=== PATIENT | female | born 1960 | race Caucasian/White ===

== ENCOUNTER 2020-03-24 12:01 | Outpatient (CLI) | payer BC, SELFPAY ==
[2020-03-24 23:56] LABS: SARS-CoV-2 RNA PCR Negative
== END 2020-03-24 12:02 | disposition home or self-care (01) ==
LOC: CHSLAB 12:10
PROVIDERS: PCP Internal Medicine; Visit Provider Internal Medicine
DX: Z20.828 Contact with and (suspected) exposure to other viral communicable diseases (principal)
CPT/HCPCS: 87635; C9803; U0003

== ENCOUNTER 2021-01-12 14:17 | Outpatient (CLI) | payer BC, SELFPAY ==
[2021-01-12 15:20] LABS: SARS-CoV-2 RNA PCR Negative (Negative)
== END 2021-01-12 14:18 | disposition home or self-care (01) ==
LOC: CHSLAB 14:19
PROVIDERS: PCP Internal Medicine; Visit Provider Internal Medicine
DX: Z20.822 Contact with and (suspected) exposure to COVID-19 (principal)
CPT/HCPCS: 87081; 87880; C9803; U0003; U0005

== ENCOUNTER 2022-06-02 14:01 | Outpatient (CLI) | payer BC, SELFPAY ==
--- NOTE | ~2022-06-02 | CT_ITS ---
EXAMINATION: CTA chest PE protocol DATE: 06/02/2022 15:30 INDICATION: Shortness of breath. TECHNIQUE: Computed tomography angiography (CTA) of the chest was performed with 100 mL Omnipaque-350 intravenous contrast timed to evaluate the pulmonary arteries. Coronal maximum intensity projection 3D-reconstructions were created by the technologist. Automated exposure control and iterative reconst ruction technique were employed. The dose-length product was 716.02 mGy-cm. COMPARISON: Chest 2 views 06/02/2022 FINDINGS: There is minimal atelectasis in the lungs. No pleural effusion. The heart size is normal. N o pericardial effusion. There are surgical changes of the stomach. There are gallstones in the gallbl adder, which is normal in size. There is a 4.2 cm cyst in right kidney. There is no pulmonary embolus . There is mild thoracic spondylosis. IMPRESSION: 1. No pulmonary embolus. Reviewed, dictated and finalized at location A. OGIC DEVELOPER IMPRESSION: 1. No pulmonary embolus.
--- NOTE | ~2022-06-02 | XR_ITS ---
EXAMINATION: XR chest 2V DATE: 06/02/2022 14:32 INDICATION: Shortness of breath, heart palpitations TECHNIQUE: Frontal and lateral views of the chest are obtained COMPARISON: None available FINDINGS: The lungs are free of acute opacities. No pleural effusion or pneumothorax. The cardiomedia stinal silhouette is normal. There is mild thoracic spondylosis. IMPRESSION: 1. No acute cardiopulmonary abnormality. Reviewed, dictated and finalized at location B. HOUSE ORDER PICKER
[2022-06-02 14:24] LABS: Basophils Absolute Auto 0.05 K/mm3 (0.00-0.10); Basophils Percent Auto 1.1 % (0.0-1.0); Eosinophils Absolute Auto 0.21 K/mm3 (0.02-0.50); Eosinophils Percent Auto 4.6 % (1.0-6.0); Hematocrit 42.4 % (35.0-49.0); Hemoglobin 13.6 g/dL (12.0-15.0); Lymphocytes Absolute Auto 1.15 K/mm3 (1.10-4.50); Lymphocytes Percent Auto 25.1 % (18.0-42.0); Mean Corpuscular HGB Conc 32.1 g/dL (32.0-36.0); Mean Corpuscular Hemoglobin 31.8 pg (27.0-31.0); Mean Corpuscular Volume 99.1 fL (78.0-102.0); Mean Platelet Volume 9.1 fl (9.2-11.8); Monocytes Absolute Auto 0.33 K/mm3 (0.10-0.90); Monocytes Percent Auto 7.2 % (2.0-11.0); Neutrophils Absolute Auto 2.9 K/mm3 (1.7-7.2); Platelet Count Result 285 K/mm3 (150-420); Red Blood Count 4.28 M/mm3 (4.20-5.40); Red Cell Distribution Width 12.3 % (11.6-14.4); White Blood Count 4.6 K/mm3 (4.8-10.8)
[2022-06-02 14:49] LABS: Alanine Aminotransferase 20 U/L (14-59); Albumin Level 3.5 g/dL (3.4-5.0); Alkaline Phosphatase 153 U/L (46-116); Anion Gap 5 mmol/L (8-16); Aspartate Amino Transferase 14 U/L (15-37); Bilirubin,Total 0.4 mg/dL (0.00-1.00); Blood Urea Nitrogen 16 mg/dL (7-18); Calcium 8.9 mg/dL (8.5-10.1); Carbon Dioxide 30 mmol/L (21-32); Chloride 104 mmol/L (98-108); Creatine Kinase 55 U/L (26-192); Estimated Glomerular Filt Rate 48; Glucose 112 mg/dL (70-99); NT Pro B Type Natriuretic Pept 48 pg/mL (0-125); Osmolality Calculated 290 mOsm/kg (285-295); Potassium 4.1 mmol/L (3.5-5.1); Sodium 139 mmol/L (136-145); Total Protein 7.3 g/dL (6.4-8.2)
[2022-06-02 14:51] LABS: D Dimer 0.54 mg/L (0.19-0.50)
[2022-06-02 14:53] LABS: Creatine Kinase MB < 0.50 ng/mL (0.00-5.00); Troponin I < 4.0 ng/L (0.00-60.4)
== END 2022-06-02 14:02 | disposition home or self-care (01) ==
PROVIDERS: PCP Internal Medicine; Visit Provider Internal Medicine
DX: R00.2 Palpitations (principal); R06.00 Dyspnea, unspecified; U07.1 COVID-19
CPT/HCPCS: 36415; 71046; 71275; 80053; 82550; 82553; 83880; 84484; 85025; 85380; Q9967

== ENCOUNTER 2022-09-07 11:58 | Outpatient (CLI) | payer BC, SELFPAY ==
--- NOTE | ~2022-09-07 | DEXA_ITS ---
Bone Density Report Name: KEY September Age: 62 Sex: Female Ethnicity: White Date of : 1960 Indication: postmenopausal; screening for osteoporosis; height loss; hysterectomy; Referring Provider: Ananth Mullen Study: Bone densitometry was performed. Exam Date: September 07, 2022 Accession number: [id number] Bone Density: Region BMD T-score Z-score Classification AP Spine(L1-L4) 0.828 -2.0 -0.6 Osteopenia Femoral Neck (Left) 0.733 -1.0 0.3 Normal Total Hip (Left) 0.872 -0.6 0.4 Normal Femoral Neck (Right) 0.693 -1.4 -0.1 Osteopenia Total Hip (Right) 0.854 -0.7 0.2 Normal Femoral Neck Mean 0.713 -1.2 0.1 Osteopenia Total Hip Mean 0.863 -0.6 0.3 Normal World Health Organization criteria for BMD impression classify patients as: Normal (T-score at or above -1.0), Osteopenia (T-score between -1.0 and -2.5), or Osteoporosis (T-score at or below -2.5). 10-year Fracture Risk(1): Major Osteoporotic Fracture 6.4% Hip Fracture 0.4% Reported Risk Factors: [place] (), Neck BMD=0.693, BMI=50.3 (1) FRAX(R) Version 3.08. Fracture probability calculated for an untreated patient. Fracture probability may be lower if the patient has received treatment. Clinical Information Provided by Patient: Has used the following medications: Vitamin D, Calcium, multivitiman Has the following medical conditions: Hysterectomy Patient maximum height was 62 Menopause Age: 52 No regular weight bearing exercise Onset of menses at age 13 Number of children 0 Impression: The patient has low bone mass, based on the Total Spine T-score. Discussion: BONE DENSITY IS LOW AT ONE OR MORE SKELETAL SITES. This patient's lowest T-score is low at one or more skeletal sites. It meets the World Health Organization's (WHO) criteria for ?low bone mass? (T-score between -1.0 and -2.5). The patient's 10-year risk of fracture as calculated by FRAX is less than the threshold where pharmacological therapy is recommended by the National Osteoporosis Foundation (NOF). However, all treatment decisions require clinical judgment and consideration of individual patient factors, including patient preferences, comorbidities, previous drug use, risk factors not captured in the FRAX model (e.g., frailty, falls, vitamin D deficiency, increased bone turnover, interval significant decline in bone density) and possible under or overestimation of fracture risk by FRAX. The patient should follow a healthful lifestyle (good nutrition with adequate calcium and vitamin D, and appropriate weight-bearing exercise). Follow-Up: Consider repeating this study in 2 to 3 years to reassess this patient's status, or sooner if there is some new clinical indication. Reported by: Dr. Brian Garrison on 09/07/2022 12:39:00 PM. _
--- NOTE | ~2022-09-07 | MM_ITS ---
EXAMINATION: MM screening [facility] BI w erasmo HISTORY: Screening TECHNIQUE: Craniocaudal and mediolateral oblique 3-D tomosynthesis images were obtained and synthetic 2-D images were generated. CAD analysis was submitted and interpreted. COMPARISON: Comparison to multiple prior studies sequentially, with oldest reviewed study dated 02/24. BREAST PARENCHYMAL COMPOSITION: The breasts are almost entirely fatty. FINDINGS: The right breast is stable without evidence for malignancy. There is a new small focal mass in the upper outer quadrant of the left breast, middle third. IMPRESSION: 1. New left breast mass, upper outer quadrant. 2. Additional mammographic views and possible breast ultrasound are recommended. BI-RADS Category 0: Incomplete: Needs additional imaging evaluation. Reviewed, dictated and finalized at location A. IMPRESSION: 1. New left breast mass, upper outer quadrant. 2. Additional mammographic views and possible breast ultrasound are recommended . BI-RADS Category 0: Incomplete: Needs additional imaging evaluation.
== END 2022-09-07 11:59 | disposition home or self-care (01) ==
LOC: CHSIMG 11:59
PROVIDERS: PCP Internal Medicine; Visit Provider Internal Medicine
DX: Z12.31 Encounter for screening mammogram for malignant neoplasm of breast (principal); Z78.0 Asymptomatic menopausal state; M85.89 Other specified disorders of bone density and structure, multiple sites; R92.8 Other abnormal and inconclusive findings on diagnostic imaging of breast
CPT/HCPCS: 77063; 77067; 77080

== ENCOUNTER 2022-09-12 09:43 | Outpatient (CLI) | payer BC, SELFPAY ==
--- NOTE | ~2022-09-12 | US_ITS ---
US breast LT limited DATE: 09/12/2022 10:36 INDICATION: New 3 mm mammographic mass TECHNIQUE: Real-time imaging of upper outer and lower-outer quadrants of left breast COMPARISON: 09/07/2022 bilateral screening mammogram FINDINGS: An approximately 3 mm hypoechoic virtually sonolucent lesion is noted at 12:00 3 cm from th e nipple according to the technologist's notes. This may correspond to the upper outer quadrant appro ximately 3 mm mass noted on mammography. Given that this is a postmenopausal patient with a new mammographic finding, percutaneous ultrasound- guided aspiration attempt of the lesion is recommended, with immediate subsequent ultrasound-guided b iopsy if this does not successfully aspirate. IMPRESSION: BI-RADS Category 4: Suspicious abnormality; biopsy should be considered Recommendation: Percutaneous ultrasound-guided aspiration attempt of the 12:00 lesion is recommended, with biopsy if this does not resolve with aspiration Mammogram shouldn't performed following ultrasound-guided biopsy to confirm if this corresponds to th e mammographic abnormality reported in the upper outer quadrant of the left breast Reviewed, dictated and finalized at Location A. Reviewed, dictated and finalized at location A. IMPRESSION: BI-RADS Category 4: Suspicious abnormality; biopsy should be consid ered Recommendation: Percutaneous ultrasound-guided aspiration attempt of the 12:00 lesion is recommended, with biopsy if this does not resolve with aspiration Mammogram shouldn't performed following ultrasound-guided biopsy to confirm if this corresponds to the mammographic abnormality reported in the upper outer qu adrant of the left breast
--- NOTE | ~2022-09-12 | MM_ITS ---
EXAMINATION: MM diagnostic [facility] LT w erasmo HISTORY: New small upper outer quadrant left breast mass on September 07, 2022 screening mammogram TECHNIQUE: Additional 3-D tomosynthesis images of the left breast were performed and synthetic 2-D im ages were generated. CAD analysis was submitted and interpreted. High resolution upper outer and lowe r-outer quadrant left breast ultrasound was performed. COMPARISON: September 07, 2022 bilateral screening mammogram FINDINGS: MAMMOGRAPHIC FINDINGS: An approximately 3 mm incompletely circumscribed rounded mass is confirmed in the upper outer quadran t of the left breast. ULTRASOUND: The technologist places a 3 mm hypoechoic nearly sonolucent lesion at 12:00 2 cm from the nipple. Thi s likely corresponds to the mammographic finding. Ultrasound-guided attempted percutaneous needle asp iration is recommended with immediate biopsy to follow if this does not resolve with aspiration. Follow-up left mammogram after the ultrasound-guided aspiration and/or biopsy is recommended to confi rm this sonographic lesion corresponds to the mammographic finding. IMPRESSION: 1. Suspicious incompletely circumscribed 3 mm hypoechoic nearly sonolucent lesion reported at 12:00 2 cm from nipple on ultrasound, which may correspond to the 3 mm upper outer quadrant mammographic mas s 2. Percutaneous ultrasound-guided aspiration and if necessary biopsy is recommended at 12:00 lesion w ith post aspiration and/or biopsy mammogram to determine if this corresponds to the mammographic find ing BI-RADS category 4, suspicious finding. Reviewed, dictated and finalized at location A. IMPRESSION: 1. Suspicious incompletely circumscribed 3 mm hypoechoic nearly sonolucent lesi on reported at 12:00 2 cm from nipple on ultrasound, which may correspond to th e 3 mm upper outer quadrant mammographic mass 2. Percutaneous ultrasound-guided aspiration and if necessary biopsy is recomme nded at 12:00 lesion with post aspiration and/or biopsy mammogram to determine if this corresponds to the mammographic finding BI-RADS category 4, suspicious finding.
== END 2022-09-12 09:44 | disposition home or self-care (01) ==
LOC: CHSIMG 09:44
PROVIDERS: PCP Internal Medicine; Visit Provider Internal Medicine
DX: R92.8 Other abnormal and inconclusive findings on diagnostic imaging of breast (principal)
CPT/HCPCS: 76642; 77061; 77065; G0279

== ENCOUNTER 2023-04-05 02:21 | Day surgery (SDC) | payer OTHER, SELFPAY ==
[2023-03-22 14:40] VITALS: BMI 49.4
[2023-04-05 07:46] VITALS: BP 133/73; PULSE 91; RESP 20; TEMP 36.3; O2SAT 99
[2023-04-05] MEDS: LACTATED RINGERS 1,000 ML 150 ML IV CONT (07:55)
--- NOTE | 2023-04-05 08:13 | PM.IMHP ---
H&P: HPI History of Present Illness Date/Time: 04/05/23 08:13 Chief Complaint: Family history of colon cancer Narrative: This is a 62-year-old woman who presents for colonoscopy. Her last colonoscopy was 6 years ago and was normal other than melanosis coli. She has a family history of colon cancer in her father. She denies any hematochezia or melena. She denies any change in bowel habits. Review of Systems Review of Systems: All systems reviewed & are unremarkable except as noted in HPI and below Constitutional: Constitutional: Denies chills, Denies fever(s), Denies headache(s) and Denies weight loss Eyes: Eyes: Denies change in vision ENT: Denies dizziness, Denies headache(s), Denies neck mass and Denies throat swelling Cardiovascular: Cardiovascular: Denies chest pain, Denies lightheadedness and Denies dyspnea Respiratory: Respiratory: Denies cough, Denies dyspnea and Denies wheezing Gastrointestinal: Gastrointestinal: Denies abdominal pain, Denies change in bowel habits, Denies nausea and Denies vomiting Genitourinary: Genitourinary: Denies hematuria and Denies dysuria Musculoskeletal: Musculoskeletal: Reports as per HPI Integumentary/Breasts: Skin/Breast: Reports as per HPI Neurologic: Denies dizziness and Denies headache(s) Allergic/Immunologic: Allergic/Immunologic: Denies throat swelling and Denies wheezing [facility] Social History Social History (System 04/10/19 @ 08:44 by Sudha North) Smoking status: Never smoker Substance use type: does not use Living arrangements: alone Meds Home Medications and Allergies Home Medications Medication Instructions Recorded Confirmed Type rosuvastatin 5 mg tablet 5 mg PO DAILY 03/22/23 03/22/23 History venlafaxine 75 mg capsule,extended 75 mg PO DAILY 03/22/23 03/22/23 History release 24 hr Allergies Allergy/AdvReac Type Severity Reaction Status Date / Time No Known Allergies Allergy Verified 04/05/23 07:45 Vital Signs Vital Signs - 24 hr 04/05/23 07:46 Temperature 36.3 C L Pulse Rate 91 Respiratory Rate 20 Blood Pressure 133/73 Pulse Oximetry 99 Oxygen Delivery Room Air Exam Const: General: no acute distress and alert Orientation/consciousness: patient oriented x3 HENMT: Head: normocephalic and atraumatic Ears: hearing grossly normal bilaterally Face/Nose/Sinus: Normal nares present Mouth: Yes Normal oral and palatal mucosa present Eyes: Periorbital: periorbital findings normal Sclera: sclerae normal EOM: EOMs intact bilaterally Neck: Neck: normal visual inspection, no lymphadenopathy and trachea midline Chest: Chest palpation & inspection: normal inspection of the chest Resp: Effort & Inspection: normal respiratory effort Auscultation: clear to auscultation bilaterally Cardio: Jugular venous distension: no JVD Rate: regular rate Rhythm: regular rhythm Heart sounds: S1 normal heart sound present and S2 normal heart sound present Peripheral pulses: Peripheral pulses 2+ throughout GI: Inspection: normal to inspection GI Palp: Yes Soft to palpation, No Tenderness to palpation present (GI), No Guarding due to palpation present (GI) and No Rebound tenderness present Percussion: Yes normal to percussion Auscultation: normal bowel sounds : General: Yes no CVA tenderness Back/Spine/Pelvis: Back: no CVA tenderness Neuro: General: patient oriented x3, no focal motor deficits and CN's II-XI intact bilaterally Cognition (Neuro): normal cognition Speech: normal speech Motor exam (neuro): 5/5 motor strength present throughout Extrem: General: capillary refill normal and no clubbing, cyanosis or edema Assessment and Plan Assessment and plan (1) Family history of colon cancer: Code(s): Z80.0 - Family history of malignant neoplasm of digestive organs Status: Acute Assessment and Plan: I have recommended colonoscopy. I have discussed the procedure, risks, benefits, and alternatives
--- NOTE | 2023-04-05 08:20 | P.PNAN_ITS ---
Anes - Initial Pre Proc Eval Procedure: Operation Date: 04/05/23 08:30 Proposed Procedures p Screening Colonoscopy - Dany Jackson DO Date/Time: 04/05/23 08:20 Surgeon: Dany Jackson DO Pre Op Diagnosis: neoplasm screening Patient Data Age: 62 Gender: F Height: 1.57 m Weight: 119.4 kg Last Vital Signs Temp 97.3 F L 04/05/23 07:46 Pulse 91 04/05/23 07:46 Resp 20 04/05/23 07:46 BP 133/73 04/05/23 07:46 Pulse Ox 99 04/05/23 07:46 O2 Del Method Room Air 04/05/23 07:46 Allergies Allergy/AdvReac Type Severity Reaction Status Date / Time No Known Allergies Allergy Verified 04/05/23 07:45 Home Medications Medication Instructions Recorded Confirmed Type rosuvastatin 5 mg tablet 5 mg PO DAILY 03/22/23 03/22/23 History venlafaxine 75 mg capsule,extended 75 mg PO DAILY 03/22/23 03/22/23 History release 24 hr Patient hx anesthesia problems: none Family hx anesthesia problems: none Results Review: All pre-operative results and documents have been reviewed as part of the pre- operative evaluation. [facility] Social History Social History (System 04/10/19 @ 08:44 by Sudha North) Smoking status: Never smoker Substance use type: does not use Living arrangements: alone Anes - Eval Final PreProcedure Day of Procedure 04/05/23 08:20 Patient weight: morbidly obese Heart: regular rate and rhythm Lungs: clear to auscultation Airway: Mallampati scale class II Neurological: alert and oriented Last oral intake: >/= 8 hours ASA classification: III Emergent: no Anesthetic plan: proceed Anesthesia type and monitoring: general GIVS and standard monitoring Results Review: All pre-operative results and documents have been reviewed as part of the pre- operative evaluation. Informed Consent: The patient's anesthetic plan and its attendant risks and benefits were discussed with the patient/family/POA. Questions were solicited and answers provided to the satisfaction of the patient/family/POA.
[2023-04-05 08:50] VITALS: BP 128/85; PULSE 83; RESP 20; O2SAT 100
[2023-04-05 09:00] VITALS: BP 138/85; PULSE 78; RESP 24; O2SAT 99
[2023-04-05 09:10] VITALS: BP 140/80; PULSE 73; RESP 20; O2SAT 100
== END 2023-04-05 09:32 | disposition home or self-care (01) ==
PROVIDERS: PCP Internal Medicine; Visit Provider Surgery
PROC: 0DJD8ZZ Inspection of Lower Intestinal Tract, Via Natural or Artificial Opening Endoscopic (ICD-10-PCS; CPT 45378; principal; 2023-04-05 08:30)
DX: Z12.11 Encounter for screening for malignant neoplasm of colon (principal); K57.30 Diverticulosis of large intestine without perforation or abscess without bleeding; E66.01 Morbid (severe) obesity due to excess calories; Z68.42 Body mass index [BMI] 45.0-49.9, adult; Z80.0 Family history of malignant neoplasm of digestive organs
CPT/HCPCS: 45378; J2704; J7120

== ENCOUNTER 2024-03-12 10:27 | Outpatient (CLI) | payer OTHER, SELFPAY ==
--- NOTE | ~2024-03-12 | XR_ITS ---
Left ankle Technique: AP, oblique, and lateral views were obtained. Clinical History: Pain Findings: No acute fracture or dislocation is seen. Osseous alignment is anatomic. Ankle mortise and other visualized joint spaces are preserved. Plantar calcaneal spur noted. Soft tissues are otherwise unremarkable. Impression: No acute abnormality. Plantar calcaneal spur. Reviewed, dictated and finalized at location . Impression: No acute abnormality. Plantar calcaneal spur.
[2024-03-12 10:47] LABS: Basophils Absolute Auto 0.06 K/mm3 (0.00-0.10); Basophils Percent Auto 1.2 % (0.0-1.0); Eosinophils Absolute Auto 0.27 K/mm3 (0.02-0.50); Eosinophils Percent Auto 5.5 % (1.0-6.0); Hematocrit 43.6 % (35.0-49.0); Immature Granulocyte Absolute 0.01 K/mm3 (0.00-0.00); Immature Granulocyte Percent A 0.2 % (0.0-0.0); Lymphocytes Absolute Auto 1.09 K/mm3 (1.10-4.50); Lymphocytes Percent Auto 22.2 % (18.0-42.0); Mean Corpuscular HGB Conc 32.1 g/dL (32-36); Mean Corpuscular Hemoglobin 30.8 pg (27.0-31.0); Mean Platelet Volume 9.2 fl (9.2-11.8); Monocytes Absolute Auto 0.39 K/mm3 (0.10-0.90); Monocytes Percent Auto 7.9 % (2.0-11.0); Platelet Count Result 271 K/mm3 (150-420); Red Blood Count 4.54 M/mm3 (4.20-5.40); White Blood Count 4.9 K/mm3 (4.8-10.8)
[2024-03-12 11:03] LABS: Add Urine Microscopic? YES; Appearance Urine Clear (Clear); Bilirubin Urine Negative (Negative); Blood Urine Negative (Negative); Color Urine Yellow (Yellow); Glucose Urine UA Negative (Negative); Ketones Urine Negative (Negative); Leukocyte Esterase Ur Negative (Negative); Nitrate Urine Negative (Negative); Protein Urine Negative (Negative); Specific Grav Ur 1.025 (1.010-1.020)
[2024-03-12 11:07] LABS: RBC Urine None seen /hpf (0-2); Squamous Epithelial Cell Urine Moderate /hpf (Few); WBC Urine None seen /hpf (0-3)
[2024-03-12 11:08] LABS: Bacteria Urine 1+ /hpf
[2024-03-12 11:36] LABS: Alanine Aminotransferase 17 U/L (14-59); Albumin Level 3.6 g/dL (3.4-5.0); Alkaline Phosphatase 154 U/L (46-116); Amylase 41 U/L (25-115); Anion Gap 4 mmol/L (4-12); Aspartate Amino Transferase 32 U/L (15-37); Bilirubin,Total 0.6 mg/dL (0.00-1.00); Blood Urea Nitrogen 13 mg/dL (7-18); Calcium 9.2 mg/dL (8.5-10.1); Carbon Dioxide 32 mmol/L (21-32); Chloride 103 mmol/L (98-108); Estimated Glomerular Filt Rate 47; Glucose 101 mg/dL (70-99); Lipase 27 U/L (16-77); Osmolality Calculated 288 mOsm/kg (285-295); Potassium 5.2 mmol/L (3.5-5.1); Sodium 139 mmol/L (136-145)
== END 2024-03-12 10:28 | disposition home or self-care (01) ==
LOC: CHSLAB 10:31
PROVIDERS: PCP Internal Medicine; Visit Provider Internal Medicine
DX: R10.9 Unspecified abdominal pain (principal); M76.62 Achilles tendinitis, left leg; M77.32 Calcaneal spur, left foot
CPT/HCPCS: 36415; 73610; 80053; 81001; 82150; 83690; 84443; 85025

== ENCOUNTER 2024-03-14 07:51 | Outpatient (CLI) | payer OTHER, SELFPAY ==
--- NOTE | ~2024-03-14 | US_ITS ---
Limited Abdominal Sonogram: Real-time sonographic imaging of the right upper quadrant was performed. Clinical History: Abdominal pain Findings: The liver appears normal with no evidence of mass lesion or bile duct dilatation. Main por tatiana vein demonstrates normal direction of flow. The gallbladder is well distended, and demonstrates s mall layering gallstones. The common bile duct measures 4 mm. The visualized pancreas, aorta, and IV C are unremarkable. Impression: Cholelithiasis. Reviewed, dictated and finalized at location M. Impression: Cholelithiasis.
== END 2024-03-14 07:52 | disposition home or self-care (01) ==
LOC: CHSIMG 07:52
PROVIDERS: PCP Internal Medicine; Visit Provider Internal Medicine
DX: R10.9 Unspecified abdominal pain (principal); M76.62 Achilles tendinitis, left leg; K80.20 Calculus of gallbladder without cholecystitis without obstruction
CPT/HCPCS: 76705

== ENCOUNTER 2024-03-18 15:21 | Outpatient (RCR) | payer OTHER, SELFPAY ==
--- NOTE | 2024-03-18 16:16 | OPREHPOC ---
Outpatient Therapy Plan of Care This is a Multidisciplinary Plan of Care that may contain components documented by all disciplines (PT, OT, and ST.) PT Problem 1 PT Problem #1 Knowledge Deficit PT Goal 1 Goal / Goal Update 1. independent and compliant with HEP Target Visit 4 PT Problem 2 PT Problem #2 Pain PT Goal 1 Goal / Goal Update 1. decrease pain at worst to 2/10 or less in the L posterior ankle. Target Visit 8 PT Problem 3 PT Problem #3 Impaired Flexibility PT Goal 1 Goal / Goal Update 1. mild or less bilateral gastroc/soleus tightness Target Visit 8 PT Problem 4 PT Problem #4 Impaired Strength PT Goal 1 Goal / Goal Update 1. 5/5 L ankle PF Target Visit 8 PT Problem 5 PT Problem #5 Impaired Functional Mobil PT Goal 1 Goal / Goal Update 1. patient to ambulate with normal gait mechanics 2. LEFS to display 30% or less functional defictis Target Visit 8
--- NOTE | 2024-03-18 16:16 | PTOPEVAL1 ---
Assessment and note entered by JT File, PT Evaluation Information Diagnosis achilles tendonitis ICD-10 Condition Codes (PT) M25.572 Subjective Information patient reports she has been having pain in the L ankle for a long time. she reports there is a big lump on the back of the L heel. she reports she had an xray, but reports it was unremarkable. she reports it hurts to be up on her feet. she reports she still does walk, mows the yard, and performs home care duties, but the pain is progressively getting worse. she reports it is worse when she first gets up and moving. 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 she reports she does travel to her students schools. Reported Pain Level Pain Score 0: Self Report Assessment PT Clinical Summary mrs. hearn is a 63 yo woman who presents to skilled PT services for evaluation and treatment of L posterior ankle pain. she displays tenderness , pain, and deficits in functional activity performance indicative of L achilles tendonitis. she would benefit from continued skilled PT to address her objective/functional deficits to return to her prior level functional activity performance/quality of life. Plan of Care Interventions Electrical Stimulation,Gait Training,Hot Pack/Cold Pack,Manual Therapy,Neuro Re-education,Patient/ Caregiver Educati,Therapeutic Activities, Therapeutic Exercise,Ultrasound,Other Other Interventions dry needling PT Services Indicated Yes Treatment Frequency and 2x weekly for 8 visits Duration These treatments will address the objective and functional deficits as defined above. The patient will be advanced safely and appropriately in order for the patient to progress towards his/her prior level of function. Additional exercises will be introduced and as well as a comprehensive home exercise program upon discharge, if needed, ?to ensure carryover of functional gains achieved in the clinic. This treatment plan has been reviewed and agreement upon by the patient.
--- NOTE | 2024-03-28 13:10 | PCPTNOTE ---
Cancelled session. Reports she is not feeling well.
== END 2024-03-25 15:45 | disposition home or self-care (01) ==
LOC: CHSPT 15:21
PROVIDERS: PCP Internal Medicine; Visit Provider Internal Medicine
DX: M76.62 Achilles tendinitis, left leg (principal); M25.572 Pain in left ankle and joints of left foot
CPT/HCPCS: 97035; 97110; 97140; 97161

== ENCOUNTER 2024-05-12 14:41 | Outpatient (CLI) | payer OTHER, SELFPAY ==
[2024-05-12 15:31] LABS: Alanine Aminotransferase 15 U/L (14-59); Albumin Level 3.6 g/dL (3.4-5.0); Alkaline Phosphatase 159 U/L (46-116); Amylase 46 U/L (25-115); Aspartate Amino Transferase 16 U/L (15-37); Bilirubin Direct 0.1 mg/dL (0-0.2); Bilirubin,Total 0.4 mg/dL (0.00-1.00); Lipase 29 U/L (16-77); Total Protein 6.7 g/dL (6.4-8.2)
== END 2024-05-12 14:42 | disposition home or self-care (01) ==
PROVIDERS: PCP Internal Medicine; Visit Provider Surgery
DX: K80.20 Calculus of gallbladder without cholecystitis without obstruction (principal)
CPT/HCPCS: 36415; 80076; 82150; 83690

== ENCOUNTER 2024-05-19 00:53 | Day surgery (SDC) | payer OTHER, SELFPAY ==
--- NOTE | 2024-05-12 09:02 | PC.NURSE ---
Report to the Outpatient Waiting Room, entrance under the green pavilion located off [facility], at time 1130__ on date _05/19/24_. Planned Procedure Time: 1330__.? Time changes happen often and if your time is changed the preop area will call you the afternoon before. - You and your visitor will be asked to self-screen and do not enter if you have any COVID symptoms. Please call surgeon if you need to reschedule. - A mask is optional within the hospital at this time. Patients may have clear liquids (water, carbonated beverages, clear teas, apple juice) until 3 hours prior to surgery with a maximum of 20 ounces. - No food from midnight until time of surgery and no smoking. This includes no chewing gum, candy or mints. - Infants may have breast milk until 4 hours before surgery, infant formula 6 hours prior to surgery. - Children will be allowed to drink immediately following surgery.? If applicable, please bring a bottle or sippy cup to assist with drinking. Juice, water, soda, and popsicles are readily available.? For infants on formula, please bring formula the day of surgery.? Pacifiers are allowed. Take only the following medications with a SIP of water on the morning of surgery: __VENLAFAXINE DO NOT STOP ANY OF YOUR OTHER PRESCRIPTION MEDICATIONS PRIOR TO SURGERY EXCEPT THE FOLLOWING Medications to discontinue per physician NONE Date to take last dose Please no make-up, nail montenegrin, hairspray, perfume, deodorant, or body powder the day of surgery.? No jewelry (including any body piercings) or valuables the day of surgery, leave them at home.? Please take a shower or bath the night before, or the morning of, surgery with HIBICLENS antibacterial soap.? Wear comfortable, loose fitting clothing.? Children are encouraged to wear pajamas. - Jewelry must be removed prior to entering the operating room.? Rings and piercings that are not removed may be cut off. - The hospital will not accept responsibility for valuables.? - Please leave all valuables, including medications, at home the day of surgery. If you are going home after surgery, a licensed driver merchandiser must drive you home.? - NO public transportation without another adult if you receive anesthesia. - We recommend that an adult stay with you for 24 hours following discharge. - We also recommend that you do not drive, make important decision, drink alcoholic beverages, or take any drugs that were not prescribed by your health care provider for at least 24 hours after your discharge time. For Pediatric surgeries, we recommend two adults accompany the child home. Follow any additional instructions given to you from your surgeon. Telephone instructions given to _PATIENT_and asked if any additional questions and then verbalized understanding. Patient advised to call surgeon office or pre surgery nurse liaison [phone] if any additional questions.
[2024-05-12 09:11] VITALS: BMI 50.3
[2024-05-19] VITALS (10 sets, daily range): BP systolic 82–136; BP diastolic 28–70; PULSE 60–85; RESP 14–20; TEMP 36.2–36.6; O2SAT 96–100
--- NOTE | 2024-05-19 11:38 | ECG_ITS ---
Test Date: 2024-05-19 12:11:11 Measurements Intervals Crozier Rate: 74 P: 17 RI: 159 QRS: 25 QRSD: 80 T: 42 QT: 364 QTc: 405 Interpretive Statements SINUS RHYTHM No previous ECG available for comparison Electronically Signed On 05-19-2024 13:13:01 FSR by Brando Ramirez M.D.
[2024-05-19] MEDS: LACTATED RINGERS 1,000 ML 30 ML IV CONT ×2 (12:00→13:55)
[2024-05-19] MEDS: ACETAMINOPHEN 500 MG TABLET 1000 MG PO (12:15)
[2024-05-19] MEDS: KETOROLAC 15 MG/ML VIAL (*BKC) IV PUSH (12:25)
--- NOTE | 2024-05-19 12:45 | P.HP_ITS ---
H&P: HPI History of Present Illness Date/Time: 05/19/24 12:45 Chief Complaint: Symptomatic cholelithiasis Narrative: This is a 64-year-old woman who presents for laparoscopic cholecystectomy. She reports no changes since last seen in the office in April. Review of Systems Review of Systems: All systems reviewed & are unremarkable except as noted in HPI and below Constitutional: Constitutional: Denies chills, Denies fever(s), Denies headache(s) and Denies weight loss Eyes: Eyes: Denies change in vision ENT: Denies dizziness, Denies headache(s), Denies neck mass and Denies throat swelling Cardiovascular: Cardiovascular: Denies chest pain, Denies lightheadedness and Denies dyspnea Respiratory: Respiratory: Denies cough, Denies dyspnea and Denies wheezing Gastrointestinal: Gastrointestinal: Denies abdominal pain, Denies change in bowel habits, Denies nausea and Denies vomiting Genitourinary: Genitourinary: Denies hematuria and Denies dysuria Musculoskeletal: Musculoskeletal: Reports as per HPI Integumentary/Breasts: Skin/Breast: Reports as per HPI Neurologic: Denies dizziness and Denies headache(s) Allergic/Immunologic: Allergic/Immunologic: Denies throat swelling and Denies wheezing PMF Past Medical History Medical History STEVE (obstructive sleep apnea) GERD (gastroesophageal reflux disease) Hyperlipidemia Depression Surgical History Surgical History History of colonoscopy History of esophagogastroduodenoscopy (EGD) 2020 History of bariatric surgery 2004 History of right oophorectomy History of hysterectomy 2004 Family History Family History Other Carcinoma of colon Depression Social History Social History Smoking status: Never smoker Additional smoking assessment comments: SMOKED AT A CHILD FOR 1 YR Alcohol intake: never Substance use type: does not use Do You Feel Safe in your Home?: Yes Lack of Transportation: No Lack of Food: Never True Current Housing: I Have Housing Concerned About Future Housing: No Difficulty Paying Gas/Electric Bills: No Difficulty Paying for Meds: No Currently Unemployed: No Education: Master's Degree or Higher Difficulty w/ Childcare or Family Care: No Living arrangements: alone Occupation/Education: occupation Additional occupation/education comments: [employer] Meds Home Medications and Allergies Home Medications ?Medication ?Instructions ?Recorded ?Confirmed ?Type venlafaxine 75 mg capsule,extended 75 mg PO DAILY 03/22/23 05/12/24 History release 24 hr acetaminophen 650 mg 650 mg PO Q12H PRN Pain 04/17/24 05/12/24 History tablet,extended release (Tylenol Arthritis Pain) Allergies Allergy/AdvReac Type Severity Reaction Status Date / Time No Known Allergies Allergy Verified 05/19/24 12:27 Exam Const: General: no acute distress and alert Orientation/consciousness: patient oriented x3 HENMT: Head: normocephalic and atraumatic Ears: hearing grossly normal bilaterally Face/Nose/Sinus: Normal nares present Mouth: Yes Normal oral and palatal mucosa present Eyes: Periorbital: periorbital findings normal Sclera: sclerae normal EOM: EOMs intact bilaterally Neck: Neck: normal visual inspection, no lymphadenopathy and trachea midline Chest: Chest palpation & inspection: normal inspection of the chest Resp: Effort & Inspection: normal respiratory effort Auscultation: clear to auscultation bilaterally Cardio: Jugular venous distension: no JVD Rate: regular rate Rhythm: regular rhythm Heart sounds: S1 normal heart sound present and S2 normal heart sound present Peripheral pulses: Peripheral pulses 2+ throughout GI: Inspection: normal to inspection GI Palp: Yes Soft to palpation, No Tenderness to palpation present (GI), No Guarding due to palpation present (GI) and No Rebound tenderness present Percussion: Yes normal to percussion Auscultation: normal bowel sounds : General: Yes no CVA tenderness Back/Spine/Pelvis: Back: no CVA tenderness Neuro: General: patient oriented x3, no focal motor deficits and CN's II-XI intact bilaterally Cognition (Neuro): normal cognition Speech: normal speech Motor exam (neuro): 5/5 motor strength present throughout Extrem: General: capillary refill normal and no clubbing, cyanosis or edema Assessment and Plan Assessment and plan (1) Symptomatic cholelithiasis: Code(s): K80.20 - Calculus of gallbladder without cholecystitis without obstruction Status: Acute Assessment and Plan: I have recommended laparoscopic cholecystectomy, possible open. I have d iscussed the procedure, risks, benefits, and alternatives with the patient. All questions answered. No changes since last seen in office.
--- NOTE | 2024-05-19 12:45 | WPDANESEPPF ---
Anes - Initial Pre Proc Eval Procedure: Operation Date: 05/19/24 13:30 Proposed Procedures p Laparoscopic Cholecystectomy, Possible Open - Dany Jackson DO Date/Time: 05/19/24 12:45 Surgeon: Dany Jackson DO Pre Op Diagnosis: Sym Cholelithiasis Patient Data Age: 64 Gender: F Height: 1.57 m Weight: 122.8 kg Allergies Allergy/AdvReac Type Severity Reaction Status Date / Time No Known Allergies Allergy Verified 05/19/24 12:27 Home Medications ?Medication ?Instructions ?Recorded ?Confirmed ?Type venlafaxine 75 mg capsule,extended 75 mg PO DAILY 03/22/23 05/12/24 History release 24 hr acetaminophen 650 mg 650 mg PO Q12H PRN Pain 04/17/24 05/12/24 History tablet,extended release (Tylenol Arthritis Pain) Patient hx anesthesia problems: none Family hx anesthesia problems: none Results Review: All pre-operative results and documents have been reviewed as part of the pre-operative evaluation. [facility] Past Medical History Medical History STEVE (obstructive sleep apnea) GERD (gastroesophageal reflux disease) Hyperlipidemia Depression Surgical History Surgical History History of colonoscopy History of esophagogastroduodenoscopy (EGD) 2020 History of bariatric surgery 2004 History of right oophorectomy History of hysterectomy 2003 Family History Family History Other Carcinoma of colon Depression Social History Social History Smoking status: Never smoker Additional smoking assessment comments: SMOKED AT A CHILD FOR 1 YR Alcohol intake: never Substance use type: does not use Do You Feel Safe in your Home?: Yes Lack of Transportation: No Lack of Food: Never True Current Housing: I Have Housing Concerned About Future Housing: No Difficulty Paying Gas/Electric Bills: No Difficulty Paying for Meds: No Currently Unemployed: No Education: Master's Degree or Higher Difficulty w/ Childcare or Family Care: No Living arrangements: alone Occupation/Education: occupation Additional occupation/education comments: [employer] Anes - Eval Final PreProcedure Day of Procedure 05/19/24 12:45 Patient weight: super morbidly obese Heart: regular rate and rhythm Lungs: clear to auscultation Airway: Mallampati scale class II Neurological: alert and oriented Last oral intake: >/= 8 hours ASA classification: III Emergent: no Anesthetic plan: proceed Anesthesia type and monitoring: general ETT and standard monitoring Results Review: All pre-operative results and documents have been reviewed as part of the pre-operative evaluation. Informed Consent: The patient's anesthetic plan and its attendant risks and benefits were discussed with the patient/family/POA. Questions were solicited and answers provided to the satisfaction of the patient/family/POA.
--- NOTE | 2024-05-19 12:45 | WPDHPUPDATE1 ---
History and Physical Update Update Date/Time: 05/19/24 12:45 History and Physical has been reviewed, including an updated exam of the patient. There are NO changes in the patient's condition. Risks, benefits, and alternatives have been discussed and questions answered. Patient agrees to proceed with procedure.
[2024-05-19] MEDS: ceFAZolin 2 GM/D5W 50 ML 2 GM/50 ML BAG IVPB (12:54)
[2024-05-19] MEDS: BUPIVACAINE/EPINEPHRINE 0.5% 30 ML VIAL INFILTRATE (13:20)
--- NOTE | 2024-05-19 13:41 | W.PM.PROC2 ---
Procedure Note - Detailed Date of Procedure 05/19/24 Pre-op Diagnosis Symptomatic Cholelithiasis Post-op Diagnosis Same Procedure Performed Laparoscopic cholecystectomy Surgeon Dany Jackson, DO Anesthesia General and Local (0.5% bupivacaine) Indications This is a 64-year-old woman who presents with intermittent upper abdominal pain over the past couple months. She could not identify any particular foods that were causing the pain. Ultrasound showed evidence of cholelithiasis. Discussions were made with the patient about treatment options and decision was made to proceed with laparoscopic cholecystectomy, possible open. Findings Laparoscopic cholecystectomy was performed. The gallbladder appeared slightly dilated and contained multiple small gallstones. Cystic duct appeared normal in size. No other significant abnormalities were noted. The gallbladder was removed and sent to the lab for pathology. Description of Procedure Procedure as well as risks, benefits, and alternatives were discussed with patient. Written consent was obtained and placed in chart prior to procedure. The patient was brought back to surgical suite. Patient was placed in supine position on operating table. Time-out was done to confirm patient and procedure. Patient was then intubated by the anesthesia department. Abdomen was prepped and draped in sterile fashion using chlorhexidine prep. 0.5% bupivacaine with epinephrine was infiltrated at each site of incision. A 5 millimeter incision was made near the umbilicus, and a 5 millimeter Optiview trocar was advanced through the abdominal layers under direct visualization. Once inside the abdominal cavity, carbon dioxide was insufflated to create a pneumoperitoneum. The camera was inserted and the abdomen was inspected. No immediate abnormalities were identified. The patient was placed in reverse Trendelenburg position and rotated slightly to the left. An 11 millimeter incision was made in the subxiphoid region, and an 11 millimeter trocar was inserted under direct visualization. Two 5 millimeter incisions were made in the right upper quadrant, and two 5 millimeter trocars were inserted under direct visualization. The gallbladder was identified and grasped at the fundus and retracted superiorly. It was then grasped at the infundibulum retracted laterally. Careful dissection around the neck of the gallbladder was performed using blunt dissection with a [place] grasper and hook electrocautery. The cystic duct was identified, and a window was created behind it. The cystic artery was also identified and a window was created behind it. The critical view of safety was identified, visualizing the cystic duct running directly into the neck of the gallbladder, and the cystic artery running directly into the wall of the gallbladder. A 5 millimeter clip kitchen manager was then used to place 2 clips proximally and 1 clip distally on both the cystic duct and cystic artery. They were then both transected using endoscopic scissors. Once safely away from the thais hepatitis, the gallbladder was dissected free from the liver bed using hook electrocautery. Hemostasis was achieved along the way. The gallbladder was removed completely and then removed through the subxiphoid port. The liver bed was then inspected. Hemostasis appeared adequate, and our clips appeared secure. The area was gently irrigated with sterile saline. No other abnormalities were seen. The patient was flattened out in bed, and 1 final inspection was made around the abdominal cavity. The subxiphoid port was removed, and a Td Ayla cone was used to approximate the fascia with an 0-Vicryl simple interrupted suture. The remaining ports were then removed under direct visualization, the camera was removed, and the pneumoperitoneum was released. The skin of the incisions was approximated using 4-0 Monocryl subcuticular sutures. Exofin glue was applied on top. The patient was then awakened from anesthesia, extubated, and transferred to recovery. Estimated Blood Loss 5 Pathology Yes (Gallbladder) Complications No immediate complications Condition Stable Disposition Same day [facility] Billing Surgery - Charge Forward: Surgery Billing
[2024-05-19] MEDS: fentaNYL CITRATE INJ (*CRX) 100 MCG/2 ML VIAL 25 MCG IV PUSH ×2 (14:00→14:03)
[2024-05-19] MEDS: oxyCODONE HCL (*CRX) 5 MG TAB IR PO (15:00)
--- OUTSIDE RECORDS SUMMARY | 2024-05-24 10:49 | XMS_ITS | Referral Summary ---
Author Organization [facility] Medical [facility] [address] Address [address] [place] [address] Care Team Providers Care Marketing Proposal Coordinator Name Role Phone Ananth Mullen MD Primary Care Provider [phone] Encounters Date Type Department Care Team Description 05/08/2024 Telephone [facility] Ophthalmology [facility] [facility] [address]th [place] [address] Raphael Hernández MD from Last 3 Months Allergies No known active allergies Medications venlafaxine (EFFEXOR) 75 mg tabletIndicatio ns:hx of depression Take 1 tablet (75 mg total) by mouth every morning 0 Active calcium phosphate trib/vit D3 (CITRACAL + D3, CALCIUM PHOS, ORAL) Take 1 tablet by mouth every morning Active cholecalciferol (Vitamin D3) 5,000 unit tabletIndicatio ns:supplement Take 1 tablet (5,000 Units total) by mouth every morning Active cyanocobalamin, vitamin B-12, (VITAMIN B-12 ORAL)Indication s:supplement Place 1 tablet under the tongue every morning Active MULTIVITAMIN ORAL Take 1 tablet by mouth every morning Bariatric Advantage without iron Active ketoconazole (NIZORAL) 2 % cream 3 Active rosuvastatin (CRESTOR) 5 mg tablet 3 Active valACYclovir (VALTREX) 1 gram tablet 3 Active Active Problems Problem Noted Date Diagnosed Date Class 3 severe obesity in adult 07/22/2020 Overview (07/22/2020): Added automatically from request for surgery [id number] Arthritis 04/27/2020 History of Lisha-en-Y gastric bypass 04/27/2020 Heartburn 04/23/2020 Overview (04/23/2020): Added automatically from request for surgery [id number] Weight gain following gastric bypass surgery Overview (04/23/2020): Added automatically from request for surgery [id number] Preoperative examination 04/23/2020 Overview (04/23/2020): Added automatically from request for surgery [id number] Hx of hysterectomy 04/27/2004 Social History Tobacco Use Types Packs/Day Years Used Date Smoking Tobacco: Never Smokeless Tobacco: Never Alcohol Use Standard Drinks/Week Comments Never 0 (1 standard drink = 0.6 oz pur e alcohol) AUDIT-C Answer Date Recorded Q1: How often do you have a drink containing alc ohol? Never 11/19/2020 Average Number of Drinks Not on file 021 Frequency of Binge Drinking Not on file 11/02 Personal Safety Answer Date Recorded Getting School Help Needed Not on file 08/18 Comments No Sex and Gender Information Value Date Recorded Sex Assigned at Not on file Legal Sex Female 4:27 PM [employer] Gender Identity Not on file Sexual Orientation Not on file Last Filed Vital Signs Vital Sign Reading Time Taken Comments Blood Pressure 118/82 11/19/2020 12:58 PM CDT Pulse 79 11/19/2020 12:58 PM CDT Temperature 36.7 ??C (98.1 ??F) 11/19/2020 12:58 PM C DT Respiratory Rate 15 08/27/2020 11:20 AM CDT Oxygen Saturation 96% 08/27/2020 11:20 AM CDT Inhaled Oxygen Concentration - - Weight 112.5 kg (248 lb) 10/03/2022 7:40 AM CDT Height 157.5 cm (5' 2 ) 10/03/2022 7:40 AM CDT Body Mass Index 45.36 10/03/2022 7:40 AM CDT Plan of Treatment Upcoming Encounters Date Type Department Care Team (Late st Contact Info) Description 05/26/2024 1:30 PM [employer] Office Visit [facility] Ophthalmology [address] [place] [address] Couch, Raphael [place] MD [address] DEPT OPHTHALMOLOGY, [address] [place] [address] Procedures Procedure Name Priority Date/Time Associated Diagnosis Comments SCREENING MAMMOGRAM BILATERAL W ALFREDO Schedule Routine, Read Routine (OP Routine) 11/01/2023 8:38 AM CDT Screening mammogram, encounter for from Last 3 Months or Most Recently Relevant to Health Maintenance Results * Screening Mammogram Bilateral W Alfredo (11/01/2023 8:38 AM CDT) Anatomical Region Laterality Modality Breast Bilateral Mammography Narrative 11/01/2023 2:43 PM CDT Mammogram Technique: Bilateral Digital Breast Tomosynthesis, Bilateral C-view 2D Screening mammogram. ??Views obtained: ??bilateral craniocaudal and bilateral mediolateral oblique. ??Computer Aided Detection was performed. Mammogram Findings: The present examination has been compared to prior imaging studies performed on 01/30/2019, 09/07/2022 and 09/12/2022. The breasts are almost entirely fatty. There is no suspicious abnormality in either breast. There are no significant changes from the prior study. Impression: There is no mammographic evidence of malignancy. Annual screening mammography is recommended. OVERALL FINAL ASSESSMENT: BI-RADS CATEGORY 1: ??Negative. Procedure Note Maria George MD - 11/01/2023 Mammogram Technique: Bilateral Digital Breast Tomosynthesis, Bilateral C-view 2D Screening mammogram. Views obtained: bilateral craniocaudal and bilateral mediolateral oblique. Computer Aided Detection was performed. Mammogram Findings: The present examination has been compared to prior imaging studies performed on 01/30/2019, 09/07/2022 and 09/12/2022. The breasts are almost entirely fatty. There is no suspicious abnormality in either breast. There are no significant changes from the prior study. Impression: There is no mammographic evidence of malignancy. Annual screening mammography is recommended. OVERALL FINAL ASSESSMENT: BI-RADS CATEGORY 1: Negative. us Self Screening Mammogram IMG MAMMO PROCEDURES Fi nal Result from Last 3 Months or Most Recently Relevant to Health Maintenance Insurance [employer] [facility] Address: [address] [address] [place] [address] [employer] [place] [facility] [employer] [facility] [employer] Address: [facility] [address] [id number] Advance Directives For more information, please contact: [phone] * Full Code (Latest Code Status on File) Date Activated Date Inactivated Comments 08/27/2020 7:45 AM 08/30/2020 12:07 PM * Full Code Date Activated Date Inactivated Comments 05/31/2020 8:36 AM 05/31/2020 2:18 PM Care Teams Marketing Proposal Coordinator Relationship Specialty Start Date End Date Ananth Mullen MD PCP - General Internal Medicine 04/21/20
--- OUTSIDE RECORDS SUMMARY | 2024-05-24 10:49 | XMS_ITS | Encounter Summary ---
Author Organization [facility] Healthcare Address [address] [place] [address] Care Team Providers Care County Engineer Name Role Phone Ananth Mullen MD Primary Care Provider [phone] Reason for Referral * Diagnostic Imaging (Routine) - Closed Specialty Diagnoses / Procedures Referred By Contac t Referred To Contact Diagnoses Mass of left breast, unspecified quadrant Procedures US Breast Left Limited Ofelia Naranjo NP [address] [facility] [id number] [place] [address] Phone: tel: fax: [address] [phone] Referral ID Status Reason Start Date Expiration Date Visits Re quested Visits Authorized [id number] Closed 09/14/2022 10/14/2023 1 1 Reason for Visit * Diagnostic Imaging (Routine) - Closed Specialty Diagnoses / Procedures Referred By Contac t Referred To Contact Diagnoses Mass of left breast, unspecified quadrant Procedures US Breast Left Limited Ofelia Naranjo NP [address] [facility] [id number] [place] [address] Phone: tel: fax: [address] [phone] Referral ID Status Reason Start Date Expiration Date Visits Re quested Visits Authorized [id number] Closed 09/14/2022 10/14/2023 1 1 Encounter Details Date Type Department Care Team (Latest Contact Info) Description 10/03/2022 8:13 AM CDT - 10/03/2022 11:59 PM CDT Hospital Encounter [facility] [address] [place] [address] Mass of left breast, unspecified quadrant Discharge Disposition: Discharge to home or self care Social History Tobacco Use Types Packs/Day Years [...] of Binge Drinking Not on file 11/02 Comments No Sex and Gender Information Value Date Recorded Sex Assigned at Not on file 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 Gender Identity Not on file Sexual Orientation Not on file documented as of this encounter Medications at Time of Discharge calcium phosphate trib/vit D3 (CITRACAL + D3, CALCIUM PHOS, ORAL) Take 1 tablet by mouth every morning cholecalciferol (Vitamin D3) 5,000 unit tabletIndication s:supplement Take 1 tablet (5,000 Units total) by mouth every morning cyanocobalamin, vitamin B-12, (VITAMIN B-12 ORAL)Indications :supplement Place 1 tablet under the tongue every morning ketoconazole (NIZORAL) 2 % cream 09/25/2022 MULTIVITAMIN ORAL Take 1 tablet by mouth every morning Bariatric Advantage without iron rosuvastatin (CRESTOR) 5 mg tablet 09/25/2022 valACYclovir (VALTREX) 1 gram tablet 08/15/2022 venlafaxine (EFFEXOR) 75 mg tabletIndication s:hx of depression Take 1 tablet (75 mg total) by mouth every morning 04/13/2020 documented as of this encounter Discharge Disposition Disposition Code Departure Means Destination Discharge to home or self care documented in this encounter Plan of Treatment Upcoming Encounters Date Type Department Care Team (Late st Contact Info) Description 05/26/2024 1:30 PM COSTUME DESIGNER Office Visit [facility] [address], [address] [place] [address] Raphael Hernández MD [address] [facility], [address] [place] [address] documented as of this encounter Procedures Procedure Name Priority Date/Time Associated Diagnosis Comments US BREAST LEFT LIMITED Schedule Routine, Read Routine (OP Routine) 10/03/2022 9:20 AM CDT Mass of left breast, unspecified quadrant documented in this encounter Results * US Breast Left Limited (10/03/2022 9:20 AM CDT) Anatomical Region Laterality Modality Breast Left Ultrasound 10/03/2022 9:32 AM CDT Impressions 10/03/2022 10:08 AM CDT 1. ??0.3 cm cyst within the LEFT breast is benign and correlates to the outside hospital mammographic finding. 2. ??No suspicious abnormality in the LEFT breast at the sites of patient's pain. OVERALL FINAL ASSESSMENT: BI-RADS Category 2: Benign. RECOMMENDATION: Annual screening mammography is recommended. Dictated by: Neisha Medrano M.D. The radiology attending physician has personally reviewed this study, and had reviewed and/or edited this written report and agrees with it. Electronically signed by: Mague Rogers M.D. Narrative 10/03/2022 10:08 AM CDT EXAMINATION: LEFT BREAST ULTRASOUND HISTORY: 62-year-old woman with recent consult on outside hospital imaging demonstrating screen detected upper outer LEFT breast mass with possible cyst on ultrasound which did not definitively correlate to the mammographic findings. ??Patient presents for further sonographic evaluation and also noted to have LEFT breast pain in the subareolar region and at 2:00 6 cm from the nipple. COMPARISON: 09/12/2022 and multiple priors dating back to 2011 TECHNIQUE: Directed ultrasound evaluation of the LEFT breast was performed. ULTRASOUND FINDINGS: Targeted sonographic evaluation of the LEFT breast at 1:00 5 cm from the nipple demonstrates an oval anechoic mass with posterior acoustic enhancement measuring 0.3 x 0.2 x 0.3 cm. ??There is no associated increased vascularity. Sonographic evaluation of the regions of patient's pain at 2:00 6 cm from the nipple and in the subareolar region demonstrates normal-appearing breast tissue without suspicious abnormality. Procedure Note Mague Rogers MD - 10/03/2022 EXAMINATION: LEFT BREAST ULTRASOUND HISTORY: 62-year-old woman with recent consult on outside hospital imaging demonstrating screen detected upper outer LEFT breast mass with possible cyst on ultrasound which did not definitively correlate to the mammographic findings. Patient presents for further sonographic evaluation and also noted to have LEFT breast pain in the subareolar region and at 2:00 6 cm from the nipple. COMPARISON: 09/12/2022 and multiple priors dating back to 2011 TECHNIQUE: Directed ultrasound evaluation of the LEFT breast was performed. ULTRASOUND FINDINGS: Targeted sonographic evaluation of the LEFT breast at 1:00 5 cm from the nipple demonstrates an oval anechoic mass with posterior acoustic enhancement measuring 0.3 x 0.2 x 0.3 cm. There is no associated increased vascularity. Sonographic evaluation of the regions of patient's pain at 2:00 6 cm from the nipple and in the subareolar region demonstrates normal-appearing breast tissue without suspicious abnormality. IMPRESSION: 1. 0.3 cm cyst within the LEFT breast is benign and correlates to the outside hospital mammographic finding. 2. No suspicious abnormality in the LEFT breast at the sites of patient's pain. OVERALL FINAL ASSESSMENT: BI-RADS Category 2: Benign. RECOMMENDATION: Annual screening mammography is recommended. Dictated by: Neisha Medrano M.D. The radiology attending physician has personally reviewed this study, and had reviewed and/or edited this written report and agrees with it. Electronically signed by: Mague Rogers M.D. Ofelia Naranjo NP IM MAMMO PROCEDURES Final Result documented in this encounter Visit Diagnoses Diagnosis Mass of left breast, unspecified quadrant documented in this encounter Care Teams County Engineer Relationship Specialty Start Date End Date Ananth Mullen MD PCP - General Internal Medicine 04/21/20 documented as of this encounter
--- OUTSIDE RECORDS SUMMARY | 2024-05-24 10:49 | XMS_ITS | Encounter Summary ---
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, [address] [place] [address] Raphael Hernández MD [address] O[address]OLOGY, [address] [place], [place] [id number] documented as of this encounter Visit Diagnoses Not on filedocumented in this encounter Care Teams Special Services Supervisor Relationship Specialty Start Date End Date Ananth Mullen MD PCP - General Internal Medicine 04/21/20 documented as of this encounter
--- OUTSIDE RECORDS SUMMARY | 2024-05-24 10:49 | XMS_ITS | Encounter Summary ---
Author Organization 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 Gender Identity Not on file Sexual Orientation [...] 1 tablet under the tongue every morning MULTIVITAMIN ORAL Take 1 tablet by mouth every morning Bariatric Advantage without iron valACYclovir (VALTREX) 1 gram tablet 08/15/2022 venlafaxine (EFFEXOR) 75 mg tabletIndication s:hx of depression Take 1 tablet (75 mg total) by mouth every morning 04/13/2020 omeprazole (PriLOSEC) 40 mg capsuleIndicatio ns:Treatment of Non-Bleeding Gastric Disorder Take 1 capsule (40 mg total) by mouth 2 (two) times a day before breakfast and dinner 60 capsule 2 08/11/2020 3 simvastatin (ZOCOR) 10 mg tabletIndication s:hyperlipidemia Take 10 mg by mouth every morning 04/13/2020 3 documented as of this encounter Discharge Disposition Disposition Code Departure Means Destination Discharge to home or self care documented in this encounter Plan of Treatment Upcoming Encounters Date Type Department Care Team (Late st Contact Info) Description 05/26/2024 1:30 PM MEASURING CLERK Office Visit [facility] [address] Floor, [address] [place] [address] Raphael Hernández MD [address] [facility], [address] [place] [address] documented as of this encounter Procedures Procedure Name Priority Date/Time Associated Diagnosis Comments BREAST IMAGING OUTSIDE CONSULT Routine 09/21/2022 5:10 PM CDT documented in this encounter Results * Breast Imaging Outside Consult (09/21/2022 5:10 PM CDT) Anatomical Region Laterality Modality Breast N/A Mammography 09/22/2022 9:00 AM CDT Impressions 09/22/2022 9:03 AM CDT 1. ??0.3 cm oval mass with partially obscured and partially circumscribed margins in the upper outer LEFT breast at mid depth, approximately 1-2 o'clock 5 cm from the nipple. ??Repeat ultrasound is recommended for further evaluation. 2. ??Possible anechoic cyst at 12:00, 2 cm from nipple in the LEFT breast. ??This is likely not a correlate for the mammographic finding, however, can be reimaged at the time of diagnostic ultrasound. OVERALL FINAL ASSESSMENT: BI-RADS Category 0: Incomplete - Need Additional Imaging Evaluation. RECOMMENDATION: Additional imaging - ultrasound evaluation. NOTE: The findings, conclusions and recommendations within this report do not replace the initial findings, conclusions and recommendations made at the facility where the study was performed based upon the imaging and clinical condition at that time. ??Review of the prior report and correlation with the clinical history are necessary. The provided images may or may not represent the [employer] source data set and thus may contain changes which may lower the sensitivity of the second opinion interpretation. Dictated by: Prudence Willard M.D. The radiology attending physician has personally reviewed this study, and had reviewed and/or edited this written report and agrees with it. Electronically signed by: Raquel Gonzáles M.D. Narrative 09/22/2022 9:03 AM CDT EXAMINATION: REVIEW AND INTERPRETATION OF OUTSIDE IMAGING FACILITY PERFORMING OUTSIDE IMAGING: [facility] EXAM(S) REVIEWED: BILATERAL SCREENING MAMMOGRAM WITH TOMOSYNTHESIS, 09/07/2022 LEFT UNILATERAL DIAGNOSTIC MAMMOGRAM WITH TOMOSYNTHESIS, 09/12/2022 DATE OF INTERPRETATION: 09/22/2022 PHYSICIAN REQUESTING REVIEW: Shaniqua. HISTORY: 62-year-old female with screen detected mass in the LEFT breast, corresponding to an anechoic mass on outside hospital ultrasound for which ultrasound-guided aspiration with possible core biopsy was recommended. COMPARISON: 01/30/2019, 12/13/2016, 02/24/2015 BREAST PARENCHYMAL COMPOSITION: The breasts are almost entirely fatty. FINDINGS: SCREENING MAMMOGRAM 09/07/2022: There is an oval mass with partially circumscribed and partially obscured margins within the upper outer LEFT breast at mid depth. There is no suspicious abnormality in the RIGHT breast. DIAGNOSTIC LEFT MAMMOGRAM 09/12/2022: There is a persistent oval mass with partially circumscribed and partially obscured margins, measuring 0.3 cm within the upper outer LEFT breast, mid depth. Ultrasound 09/12/2022: There is a reported 0.3 cm x 0.3 cm x 0.3 cm oval anechoic mass at 12:00, 2 cm from the nipple, within the LEFT breast, for which ultrasound-guided aspiration with possible biopsy was recommended at outside hospital. Procedure Note Raquel Gonzáles MD - 09/22/2022 EXAMINATION: REVIEW AND INTERPRETATION OF OUTSIDE IMAGING FACILITY PERFORMING OUTSIDE IMAGING: [facility] EXAM(S) REVIEWED: BILATERAL SCREENING MAMMOGRAM WITH TOMOSYNTHESIS, 09/07/2022 LEFT UNILATERAL DIAGNOSTIC MAMMOGRAM WITH TOMOSYNTHESIS, 09/12/2022 DATE OF INTERPRETATION: 09/22/2022 PHYSICIAN REQUESTING REVIEW: Shainqua. HISTORY: 62-year-old female with screen detected mass in the LEFT breast, corresponding to an anechoic mass on outside hospital ultrasound for which ultrasound-guided aspiration with possible core biopsy was recommended. COMPARISON: 01/30/2019, 12/13/2016, 02/24/2015 BREAST PARENCHYMAL COMPOSITION: The breasts are almost entirely fatty. FINDINGS: SCREENING MAMMOGRAM 09/07/2022: There is an oval mass with partially circumscribed and partially obscured margins within the upper outer LEFT breast at mid depth. There is no suspicious abnormality in the RIGHT breast. DIAGNOSTIC LEFT MAMMOGRAM 09/12/2022: There is a persistent oval mass with partially circumscribed and partially obscured margins, measuring 0.3 cm within the upper outer LEFT breast, mid depth. Ultrasound 09/12/2022: There is a reported 0.3 cm x 0.3 cm x 0.3 cm oval anechoic mass at 12:00, 2 cm from the nipple, within the LEFT breast, for which ultrasound-guided aspiration with possible biopsy was recommended at outside hospital. IMPRESSION: 1. 0.3 cm oval mass with partially obscured and partially circumscribed margins in the upper outer LEFT breast at mid depth, approximately 1-2 o'clock 5 cm from the nipple. Repeat ultrasound is recommended for further evaluation. 2. Possible anechoic cyst at 12:00, 2 cm from nipple in the LEFT breast. This is likely not a correlate for the mammographic finding, however, can be reimaged at the time of diagnostic ultrasound. OVERALL FINAL ASSESSMENT: BI-RADS Category 0: Incomplete - Need Additional Imaging Evaluation. RECOMMENDATION: Additional imaging - ultrasound evaluation. NOTE: The findings, conclusions and recommendations within this report do not replace the initial findings, conclusions and recommendations made at the facility where the study was performed based upon the imaging and clinical condition at that time. Review of the prior report and correlation with the clinical history are necessary. The provided images may or may not represent the [employer] source data set and thus may contain changes which may lower the sensitivity of the second opinion interpretation. Dictated by: Prudence Willard M.D. The radiology attending physician has personally reviewed this study, and had reviewed and/or edited this written report and agrees with it. Electronically signed by: Raquel Gonzáles M.D. Ofelia Naranjo MANAGER CREDIT COLLECTIONS IMG MAMMO PROCEDURES Final Result documented in this encounter Visit Diagnoses Not on filedocumented in this encounter Care Teams Lacing Cutter Relationship Specialty Start Date End Date Ananth Mullen MD PCP - General Internal Medicine 04/21/20 documented as of this encounter
--- OUTSIDE RECORDS SUMMARY | 2024-05-24 10:49 | XMS_ITS | Encounter Summary ---
Author Organization [facility] Address [address] [facility] [address] [place] [address] Phone Care Team Providers Care Logging Rafter Laborer Name Role Phone Ananth Mullen MD Primary Care Provider [phone] Reason for Visit * Reason Comments Consult * Consultation (Routine) - Closed Specialty Diagnoses / Procedures Referred By Amibka montoya Referred To Contact Surgical Oncology Diagnoses Breast mass seen on mammogram Mass of left breast, unspecified quadrant Ananth Mullen MD Phone: tel: fax: [facility] (All Locations) Referral ID Status Reason Start Date Expiration Date V isits Requested Visits Authorized [id number] Closed Specialty Services Required 09/12/2022 10/12/2023 1 1 Encounter Details Date Type Department Care Team (Late st Contact Info) Description 10/03/2022 8:00 AM CDT Office Visit [facility] Surgery [address] [facility] 5th [place] [address] [place] [address] Ofelia Naranjo NP [address] [facility] [id number] [place] [address] Mass of upper outer quadrant of left breast (Primary Dx); Breast mass seen on mammogram; Mass of left breast, unspecified quadrant Social History Tobacco Use Types Packs/Day Years [...] on file 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 Gender Identity Not on file Sexual Orientation Not on file documented as of this encounter Last Filed Vital Signs Vital Sign Reading Time Taken Comments Blood Pressure - - Pulse - - Temperature - - Respiratory Rate - - Oxygen Saturation - - Inhaled Oxygen Concentration - - Weight 112.5 kg (248 lb) 10/03/2022 7:40 AM CDT Height 157.5 cm (5' 2 ) 10/03/2022 7:40 AM CDT Body Mass Index 45.36 10/03/2022 7:40 AM CDT documented in this encounter Progress Notes * Ofelia Naranjo NP - 10/03/2022 8:00 AM CDT NAME: Cate Gauthier : 1960 DATE: 10/03/2022 REFERRING PROVIDER: Ananth Mullen MD CHIEF COMPLAINT: Evaluation of a left mammographic abnormality. HISTORY OF PRESENT ILLNESS: Cate Gauthier is a 62 y.o. woman presents for evaluation of a reportedleft mammographic abnormality. The patient states that she was undergoing her routine mammogram when she was alerted to an abnormality. She underwent additional imaging and ultimately was recommendedto undergo a biopsy. She presents today for a second opinion regarding this. The patient states that she herself had not noticed any abnormal masses in either breast. She denies any change in the appearance of her breasts or the skin of her breasts. She denies nipple discharge bilaterally, however,does report that she has been experiencing left nipple burning for the past several months. She hasno other systemic complaints and otherwise feels well today. This is a pleasant 62 y.o. woman who underwent menarche at 13 years of age. She has not been . menopause: natural at age 52. She has never been on hormone replacement therapy. She has never used oral contraception in the past. She has not undergone any previous breast biopsies. She has not had any breast surgeries. Her family history is significant in that her paternal aunt and paternal first cousin both have a history of Ovarian Cancer. Past Medical History: Diagnosis Date Anxiety and depression GERD (gastroesophageal reflux disease) Hyperlipidemia Morbid obesity (HCC) STEVE (obstructive sleep apnea) Pap non-compliant Past Surgical History: Procedure Laterality Date COLONOSCOPY HYSTERECTOMY 2003 HOOD-EN-Y PROCEDURE 2004 SALPINGECTOMY ~2009 unknown R or L UPPER GASTROINTESTINAL ENDOSCOPY 05/31/2020 HOME MEDICATIONS : calcium phosphate trib/vit D3 (CITRACAL + D3, CALCIUM PHOS, ORAL) cholecalciferol (Vitamin D3) 5,000 unit tablet cyanocobalamin, vitamin B-12, (VITAMIN B-12 ORAL) ketoconazole (NIZORAL) 2 % cream MULTIVITAMIN ORAL rosuvastatin (CRESTOR) 5 mg tablet valACYclovir (VALTREX) 1 gram tablet venlafaxine (EFFEXOR) 75 mg tablet omeprazole (PriLOSEC) 40 mg capsule simvastatin (ZOCOR) 10 mg tablet No Known Allergies Social History Tobacco Use Smoking status: Never Smokeless tobacco: Never Substance and Sexual Activity Drug use: Never Sexual activity: Defer Alcohol Use: Not on file Family History Problem Relation Age of Onset Heart attack Maternal Grandmother Stroke Paternal Grandmother Anesthesia problems Neg Hx REVIEW OF SYSTEMS: The patient's review of systems were reviewed as per the chart today and no other findings were noted. The patient's past medical history, social history, and family history are listed on their questionnaire and has been reviewed and can be found in the chart. PHYSICAL EXAMINATION: GENERAL: She is a well-developed, well-nourished woman in no acute distress. HEENT: Within normal limits. NECK: Neck is supple without lymphadenopathy or thyromegaly. ABDOMEN: Soft without organomegaly. EXTREMITIES: Warm without edema. NEUROLOGICAL: She is alert and oriented x 3. BREAST EXAMINATION: Bilateral breast examination reveals normal ptotic breasts bilaterally. The right breast is without any dominant masses, skin changes, nipple discharge, or axillary adenopathy. The left breast is without any dominant masses, skin changes, nipple discharge, or axillary adenopathy. IMAGING: I personally reviewed the patient's breast imaging. A formal [facility] Radiology consult was performed with the following review and interpretation of the patient's outside imaging: EXAMINATION: REVIEW AND INTERPRETATION OF OUTSIDE IMAGING FACILITY PERFORMING OUTSIDE IMAGING: [facility] EXAM(S) REVIEWED: BILATERAL SCREENING MAMMOGRAM [...] images may or may not represent the [place] source data set and thus may contain changes which may lower the sensitivity of the second opinion interpretation. Dictated by: Prudence Willard M.D. The radiology attending physician has personally reviewed this study, and had reviewed and/or edited this written report and agrees with it. Electronically signed by: Raquel Gonzáles M.D. Today the patient underwent a left breast ultrasound, which I personally reviewed. Imaging was given a Bi-Rads Cat 2, Benign. EXAMINATION: LEFT BREAST ULTRASOUND HISTORY: 62-year-old woman [...] it. Electronically signed by: Mague Rogers M.D. IMPRESSION: September Abrahan is a 62 y.o. woman who presents today for a consultation regarding a possible left mammographic abnormality. Clinical breast examination performed today is unremarkable, demonstrating normal breast parenchyma. The patient's prior imaging was reviewed at [facility] and no mammographic abnormality was identified. Patient had additional imaging repeated today in the office with a Bi-Rads Cat 2, Benign finding. PLAN: I had a long discussion with the patient regarding her current complaints. I am encouraged bythe results of her clinical breast examination, her in-office imaging and the review of her outsideimaging. The plan is for her to continue with routine breast cancer screening and follow-up with this office on a as- needed basis. I encouraged her to resume self examinations on a monthly basis and to alert me of any changes. I did review self exam technique with her today. I answered all of her questions thoroughly, and she does seem pleased with this plan of approach. I encouraged her to contact me in the interim if any new questions or concerns should arise. Ofelia Naranjo NP Portions of this note were dictated using [employer] Direct speech recognition software. Please excuse any web marketing coordinator errors. documented in this encounter Plan of Treatment Upcoming Encounters Date Type Department Care Team (Late st Contact Info) Description 05/26/2024 1:30 PM USED CAR SALES MANAGER Office Visit [facility] Ophthalmology [address] [facility] 2nd [address], [address] [place] [address] Raphael Hernández MD [address] [facility] DEPT OPHTHALMOLOGY, [address] [place] [address] documented as of this encounter Visit Diagnoses Diagnosis Mass of upper outer quadrant of left breast- Primary Breast mass seen on mammogram Abnormal mammogram, unspecified Mass of left breast, unspecified quadrant documented in this encounter Discontinued Medications Medication Sig Discontinue Reason Start Date End Da te omeprazole (PriLOSEC) 40 mg capsuleIndications:Silvia tment of Non-Bleeding Gastric Disorder Take 1 capsule (40 mg total) by mouth 2 (two) times a day before breakfast and dinner 08/11/2020 10/03/2022 simvastatin (ZOCOR) 10 mg tabletIndications:hyper lipidemia Take 10 mg by mouth every morning 04/13/2020 10/03/2022 documented as of this encounter Historical Medications * This list may reflect changes made after this encounter. Medication Sig Dispense Quantity Refills Last Filled Start D ate End Date valACYclovir (VALTREX) 1 gram tablet 08/15/2022 rosuvastatin (CRESTOR) 5 mg tablet 09/25/2022 ketoconazole (NIZORAL) 2 % cream 09/25/2022 added in this encounter Orders Outpatient Referral Count Last Ordered Date Fir st Ordered Date AMB REFERRAL TO SURGICAL ONCOLOGY 1 023 documented in this encounter Care Teams Logging Rafter Laborer Relationship Specialty Start Date End Date Ananth Mullen MD PCP - General Internal Medicine 04/21/20 documented as of this encounter
--- OUTSIDE RECORDS SUMMARY | 2024-05-24 10:49 | XMS_ITS | Encounter Summary ---
Author Organization [facility] Healthcare Address [address] [place] [address] Care Team Providers Care Corduroy Cutting Supervisor Name Role Phone Ananth Mullen MD Primary Care Provider [phone] Reason for Visit * Diagnostic Imaging (Routine) - Closed Specialty Diagnoses / Procedures Referred By Contac t Referred To Contact Procedures Breast Imaging Diagnostic Outside Reference Ofelia Naranjo NP [address] [facility] [phone] [place] [address] Phone: tel: fax: Referral ID Status Reason Start Date Expiration Date Visits Re quested Visits Authorized [id number] Closed 09/21/2022 10/21/2023 1 1 Encounter Details Date Type Department Care Team (Latest Contact Info) Description 09/12/2022 12:05 AM CDT - 09/12/2022 11:59 PM CDT Hospital Encounter [facility] [address] [place] [address] Discharge Disposition: Discharge to home or self [...] on file 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 [facility] 2nd Floor, [address] [place] [address] Raphael Hernández MD [address] [facility] [address]PT OPHTHALMOLOGY, [address] [place] [address] documented as of this encounter Procedures Procedure Name Priority Date/Time Associated Diagnosis Comments BREAST IMAGING MG DIAGNOSTIC OUTSIDE REFERENCE Routine 09/12/2022 12:05 AM CDT documented in this encounter Results * Breast Imaging Diagnostic Outside Reference (09/12/2022 12:05 AM CDT) Impressions [facility] - 09/21/2022 8:31 AM CDT These images are for Reference purposes only and have not been reviewed by [facility] Radiology. ??There will be no report generated by a [facility] Radiologist. Narrative [facility]_MAMMO[facility] - 09/21/2022 8:31 AM CDT EXAMINATION: ??Images For Reference Purposes Only us Ofelia Naranjo ROBOTICS TECHNOLOGIST IMG MAMMO PROCEDURES Final Result [facility] documented in this encounter Visit Diagnoses Not on filedocumented in this encounter Care Teams Corduroy Cutting Supervisor Relationship Specialty Start Date End Date Ananth Mullen MD PCP - General Internal Medicine 04/21/20 documented as of this encounter
--- OUTSIDE RECORDS SUMMARY | 2024-05-24 10:49 | XMS_ITS | Encounter Summary ---
Author Organization [facility] [place] [facility] Address [address] [place] [address] Phone Care Team Providers Care Getter Filler Name Role Phone Ananth Mullen MD Primary Care Provider [phone] Encounter Details Date Type Department Care Team (Late st Contact Info) Description 05/08/2024 Telephone [facility] Ophthalmology [address] [facility] Health 6th [place] [address] Raphael Hernández MD [address] [facility] DEPT OPHTHALMOLOGY, [facility] [address] [place] [address] Social History Tobacco Use Types Packs/Day Years [...] on file Legal Sex Female 4:27 PM 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 Gender Identity Not on file Sexual Orientation Not on file documented as of this encounter Miscellaneous Notes * Telephone Encounter - Jade Carlson - 05/12/2024 8:53 AM CST Pt called back, gladly accepted 05/16 at 1:30 PRINTER * Telephone Encounter - Jade Carlson - 05/12/2024 8:18 AM CST LVM to offer 05/26 at 1:30 PRINTER * Telephone Encounter - Jade Carlson - 05/08/2024 9:16 AM CST *Must be referred by optom to be scheduled (excludes Derm, ENT, Endo, etc.)All self referrals are cosmetic* Who is calling to schedule the appt?September at [facility] Has patient seen this doctor before? No Referring provider name and phone number:Mary Hay Diagnosis/ reason for visit?(if OSIEL or peds do not schedule with Dr. Craft, he does not see these patients) Chalazion Does the patient have any complaints? Obstructing vision, not responding to Abx. Started Maxitrol 03/12 Does it affect vision? Yes How quickly does referring provider want patient need to be seen? (only ask if referring providers office is calling) As soon as we can d/t vision obstruction Date appointment scheduled 06/10 Good phone number for the patient [phone] Type of insurance [facility] If COSMETIC, has the non refundable consultation fee of $250 been discussed with the patient? Were notes requested? yes PRINTER documented in this encounter Plan of Treatment Upcoming Encounters Date Type Department Care Team (Late st Contact Info) Description 05/26/2024 1:30 PM ROTOPRINTER Office Visit [facility] Ophthalmology [address] [facility] 2nd Floor, [address] [place] [address] Raphael Hernández MD [address] [facility] DEPT OPHTHALMOLOGY, [address] [place], [place] [id number] documented as of this encounter Visit Diagnoses Not on filedocumented in this encounter Care Teams Getter Filler Relationship Specialty Start Date End Date Ananth Mullen MD PCP - General Internal Medicine 04/21/20 documented as of this encounter
--- OUTSIDE RECORDS SUMMARY | 2024-05-24 10:49 | XMS_ITS | Encounter Summary ---
Author Organization [facility] Healthcare Address [address] [place] [address] Care Team Providers Care Adult Basic Studies Teacher Name Role Phone Ananth Mullen MD Primary Care Provider [phone] Reason for Referral * Diagnostic Imaging (Routine) - Closed Specialty Diagnoses / Procedures Referred By Contac t Referred To Contact Diagnoses Screening mammogram, encounter for Procedures Screening Mammogram Bilateral W Alfredo Screening Mammogram, Self [facility] Referral ID Status Reason Start Date Expiration Date Visits Re quested Visits Authorized [id number] Closed 10/01/2023 10/30/2024 1 1 * Diagnostic Imaging (Routine) - Closed Specialty Diagnoses / Procedures Referred By Contac t Referred To Contact Diagnoses Screening mammogram, encounter for Procedures Screening Mammogram Bilateral W Alfredo Screening Mammogram, Self [facility] Referral ID Status Reason Start Date Expiration Date Visits Re quested Visits Authorized [id number] Closed 10/01/2023 10/30/2024 1 1 Reason for Visit * Diagnostic Imaging (Routine) - Closed Specialty Diagnoses / Procedures Referred By Contac t Referred To Contact Diagnoses Screening mammogram, encounter for Procedures Screening Mammogram Bilateral W Alfredo Screening Mammogram, Self [facility] Referral ID Status Reason Start Date Expiration Date Visits Re quested Visits Authorized [id number] Closed 10/01/2023 10/30/2024 1 1 Encounter Details Date Type Department Care Team (Latest Contact Info) Description 11/01/2023 8:15 AM CDT - 11/01/2023 11:59 PM CDT Hospital Encounter [facility] ([facility]) [address] [place] [address] Screening mammogram, encounter for Discharge Disposition: Discharge to home or self [...] on file 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 Ophthalmology [address] [facility] [address]nd Floor, [address] [place] [address] Raphael Hernández MD [address] [facility] [address] DEPT OPHTHALMOLOGY, [address] [place] [address] documented as of this encounter Procedures Procedure Name Priority Date/Time Associated Diagnosis Comments SCREENING MAMMOGRAM BILATERAL W ALFREDO Schedule Routine, Read Routine (OP Routine) 11/01/2023 8:38 AM CDT Screening mammogram, encounter for documented in this encounter Results * Screening Mammogram Bilateral W Alfredo [...] Mammogram IMG MAMMO PROCEDURES Fi nal Result documented in this encounter Visit Diagnoses Diagnosis Screening mammogram, encounter for documented in this encounter Care Teams Adult Basic Studies Teacher Relationship Specialty Start Date End Date Ananth Mullen MD PCP - General Internal Medicine 04/21/20 documented as of this encounter
--- OUTSIDE RECORDS SUMMARY | 2024-05-24 10:49 | XMS_ITS | Encounter Summary ---
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 I am a Physician Physician Information Practice Name [facility] Physician Physician Email [email or web address] Personal Information Name Cate Gauthier Date of 1960 Gender Female Contact Information Email [email or web address] Insurance Yes Primary Insurance Blue Cross Blue [facility] Clinical Information Is this a new diagnosis? Yes What tests have been performed? (Select all that apply) Mammogram/Xray CT scan/MRI/Ultrasound/PET scan What kinds of treatment have you had? (Select all that apply) None Have you ever been a patient at the [facility] or [facility]? No Additional Information (Optional) Patient has a left breast mass and a biopsy was recommended. Lead came from page: [email or web address] documented in this encounter Plan of Treatment Upcoming Encounters Date Type Department Care Team (Late st Contact Info) Description 05/26/2024 1:30 PM MICROELECTRONICS ASSEMBLER Office Visit [facility] Ophthalmology [address] [facility] 2nd [address], [address] [place] [address] Raphael Hernández MD [address] [facility] OPHTHALMOLOGY, [address] [place], [place] [id number] documented as of this encounter Visit Diagnoses Not on filedocumented in this encounter Care Teams Nitrocellulose Maker Relationship Specialty Start Date End Date Ananth Mullen MD PCP - General Internal Medicine 04/21/20 documented as of this encounter
--- OUTSIDE RECORDS SUMMARY | 2024-05-24 10:49 | XMS_ITS | Clinical Summary ---
Author Organization [facility] 2 Address [address] [facility] [place] [address] Care Team Providers Care Oil Pump Station Operator Chief Name Role Phone Ananth Mullen MD Primary Care Provider [phone] Allergies No known active allergies Medications venlafaxine [...] (07/22/2020): Added automatically from request for surgery [id number] Arthritis 04/27/2020 History of Hood-en-Y gastric bypass 04/27/2020 Heartburn 04/23/2020 Overview (04/23/2020): Added automatically from request for surgery [id number] Weight gain following gastric bypass surgery Overview (04/23/2020): Added automatically from request for surgery [id number] Preoperative examination 04/23/2020 Overview (04/23/2020): Added automatically from request for surgery [id number] Hx of hysterectomy 04/27/2004 Encounters Date Type Department Care Team Description 05/08/2024 Telephone [facility] Ophthalmology [address] [facility] 6th [place] [address] Raphael Hernández MD from Last 3 Months Surgical History Surgery Date Site/Laterality Comments HOOD-EN-Y PROCEDURE 06/04/2004 - 06/03/2005 HYSTERECTOMY 06/04/2003 - 06/03/2004 UPPER GASTROINTESTINAL ENDOSCOPY 05/31/2020 COLONOSCOPY SALPINGECTOMY ~2009 unknown R or L Medical History Medical History Date Comments Hyperlipidemia Morbid obesity (HCC) STEVE (obstructive sleep apnea) Pa p non-compliant GERD (gastroesophageal reflux disease) Anxiety and depression Family History Medical History Relation Name Comments Heart attack Maternal Grandmother Stroke Paternal Grandmother Anesthesia problems Neg Hx Relation Name Status Comments Maternal Grandmother Paternal Grandmother Social History Tobacco Use Types Packs/Day Years [...] on file Legal Sex Female 4:27 PM PRICE LISTER Gender Identity Not on file Sexual Orientation Not on file Obstetrics History Last Filed Vital Signs Vital Sign Reading [...] st Contact Info) Description 05/26/2024 1:30 PM PRICE LISTER Office Visit [facility] Ophthalmology [address] [facility] 2nd [address], [address] [place] [address] Couch, Raphael Aguilar MD [address] DEPT OPHTHALMOLOGY, [address] [place], [place] [id number] Health Maintenance Due Date Last Done Comments Colon Cancer Screening-Colonoscopy 1962 Depression Screening 1962 Hepatitis C Screening 1962 Hepatitis B Screening 1980 Regular Well Visit/Exam 18-64 1980 Zoster Vaccine (2 of 2) 04/07/2019 02/10/2019 Influenza Vaccine (#1) 2024 8, 03/15/2017, 03/12/2017, Additional history exists Breast Cancer Screening-Mammogram 10/31/2024 11/01/2023 DTaP/Tdap/Td Vaccine (2 - Td or Tdap) 11/16/2026 11/16/2016 Pneumococcal vaccine <65 Aged Out No longer eligible based on patient's age to complete this topic Procedures Procedure Name Priority Date/Time Associated Diagnosis Comments SCREENING MAMMOGRAM BILATERAL W MAXINE Schedule Routine, Read Routine (OP Routine) 11/01/2023 8:38 AM CDT Screening mammogram, encounter for from Last 3 Months or Most Recently Relevant to Health Maintenance Results * Screening Mammogram Bilateral W Maxine (11/01/2023 8:38 AM CDT) Anatomical Region Laterality [...] OVERALL FINAL ASSESSMENT: BI-RADS CATEGORY 1: Negative. Self Screening Mammogram IMG MAMMO PROCEDURES Fi nal Result from Last 3 Months or Most Recently Relevant to Health Maintenance Insurance [facility] [address] CHOICE PLUS Advance Directives For more information, please contact: [phone] * Full Code (Latest Code Status on File) Date Activated Date Inactivated Comments 08/27/2020 7:45 AM 08/30/2020 12:07 PM * Full Code Date Activated Date Inactivated Comments 05/31/2020 8:36 AM 05/31/2020 2:18 PM Care Teams Oil Pump Station Operator Chief Relationship Specialty Start Date End Date Ananth Mullen MD PCP - General Internal Medicine 04/21/20
--- OUTSIDE RECORDS SUMMARY | 2024-05-24 10:49 | XMS_ITS | Encounter Summary ---
Author Organization [facility] Address [address] [place] [address] Care Team Providers Care Supervisor Paper Machine Name Role Phone Ananth Mullen MD Primary Care Provider [phone] Reason for Visit * Diagnostic Imaging (Routine) - Closed Specialty Diagnoses / Procedures Referred By Contac t Referred To Contact Procedures Breast Imaging US Outside Reference Ofelia Naranjo NP [address] [facility] [id number] [place] [address] Phone: tel: fax: Referral ID Status Reason Start Date Expiration Date Visits Re quested Visits Authorized [id number] Closed 09/21/2022 10/21/2023 1 1 Encounter Details Date Type Department Care Team (Latest Contact Info) Description 09/12/2022 - 09/12/2022 11:59 PM CDT Hospital Encounter [facility] [address] [place] [address] Discharge Disposition: Discharge to home or self [...] on file 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 [facility] 2nd [address], [address] [place] [address] Raphael Hernández MD [address] [facility] DEPT OPHTHALMOLOGY, [address] [place] [address] documented as of this encounter Procedures Procedure Name Priority Date/Time Associated Diagnosis Comments BREAST IMAGING US OUTSIDE REFERENCE Routine 09/12/2022 12:00 AM CDT documented in this encounter Results * Breast Imaging US Outside Reference (09/12/2022 12:00 AM CDT) Impressions [facility] - 09/21/2022 8:31 AM CDT These images are for Reference purposes only and have not been reviewed by [facility] Radiology. ??There will be no report generated by a [facility] Radiologist. Narrative [facility] - 09/21/2022 8:31 AM CDT EXAMINATION: ??Images For Reference Purposes Only us Ofelia Naranjo MICA PLATE LAYER IMG MAMMO PROCEDURES Final Result [facility] documented in this encounter Visit Diagnoses Not on filedocumented in this encounter Care Teams Supervisor Paper Machine Relationship Specialty Start Date End Date Ananth Mullen MD PCP - General Internal Medicine 04/21/20 documented as of this encounter
--- OUTSIDE RECORDS SUMMARY | 2024-05-24 10:49 | XMS_ITS | Encounter Summary ---
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 Got patient schedule and advise will mail out new patient packet. documented in this encounter Plan of Treatment Upcoming Encounters Date Type Department Care Team (Late st Contact Info) Description 05/26/2024 1:30 PM SEED SALES MANAGER Office Visit [facility] Ophthalmology [address] [facility] 2nd [address], [address] [place] [address] Raphael Hernández MD [address] DEPT OPHTHALMOLOGY, [address] [place] [address] documented as of this encounter Visit Diagnoses Not on filedocumented in this encounter Care Teams Memorial Adviser Relationship Specialty Start Date End Date Ananth Mullen MD PCP - General Internal Medicine 04/21/20 documented as of this encounter
--- OUTSIDE RECORDS SUMMARY | 2024-05-24 10:49 | XMS_ITS | Encounter Summary ---
Author Organization [facility] Address [address] [place] [address] Phone Care Team Providers Care Shaper Machine Hand Name Role Phone Ananth Mullen MD Primary Care Provider [phone] Reason for Referral * Diagnostic Imaging (Routine) - Closed Specialty Diagnoses / Procedures Referred By Ambika montoya Referred To Contact Diagnoses Mass of left breast, unspecified quadrant Procedures US Breast Left Limited Ofelia Naranjo NP [address] [facility] [id number] [place] [address] Phone: tel: fax: [address] [address] Referral ID Status Reason Start Date Expiration Date Visits Re quested Visits Authorized [id number] Closed 09/14/2022 10/14/2023 1 1 Encounter Details Date Type Department Care Team (Late st Contact Info) Description 09/14/2022 Orders Only [facility] Surgery [address] [facility] 5th [place] [address] [place] [address] Ofelia Naranjo NP [address] [facility] [id number] [place] [address] Mass of left breast, unspecified quadrant (Primary Dx) Social History Tobacco Use Types Packs/Day Years [...] on file 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 [facility] 2[address], [address] [place] [address] Raphael Hernández MD [address] [facility] DEPT OPHTHALMOLOGY, [address] [place], [place] [id number] documented as of this encounter Results * US Breast Left [...] Electronically signed by: Mague Rogers M.D. Ofelia Woodseugenio ODELL IMG MAMMO PROCEDURES Final Result * Breast Imaging Outside Consult (09/21/2022 5:10 [...] images may or may not represent the [place] source data set and thus may contain [...] OF OUTSIDE IMAGING FACILITY PERFORMING OUTSIDE IMAGING: [facility] EXAM(S) REVIEWED: BILATERAL SCREENING MAMMOGRAM WITH TOMOSYNTHESIS, [...] OF OUTSIDE IMAGING FACILITY PERFORMING OUTSIDE IMAGING: [facility] EXAM(S) REVIEWED: BILATERAL SCREENING MAMMOGRAM WITH TOMOSYNTHESIS, [...] images may or may not represent the [place] source data set and thus may contain changes which may lower the sensitivity of the second opinion interpretation. Dictated by: Prudence Willard M.D. The radiology attending physician has personally reviewed this study, and had reviewed and/or edited this written report and agrees with it. Electronically signed by: Raquel Gonzáles M.D. Ofelia Naranjo MINE UTILITY OPERATOR IMG MAMMO PROCEDURES Final Result documented in this encounter Visit Diagnoses Diagnosis Mass of left breast, unspecified quadrant- Primary Mass of left breast, unspecified quadrant documented in this encounter Care Teams Shaper Machine Hand Relationship Specialty Start Date End Date Ananth Mullen MD PCP - General Internal Medicine 04/21/20 documented as of this encounter
--- OUTSIDE RECORDS SUMMARY | 2024-05-24 10:50 | XMS_ITS | Encounter Summary ---
Author Organization [facility] Address [address] [place] [address] Care Team Providers Care Shield Operator Name Role Phone Ananth Mullen MD Primary Care Provider [phone] Encounter Details Date Type Department Care Team (Late st Contact Info) Description 07/22/2020 Orders Only [facility] Testing Site - [facility]. Building [address] [place] [address] [address] [place] [address] Srinath Frausto MD [address] [facility] [address] [place] [address] Preop testing (Primary Dx) Social History Tobacco Use Types Packs/Day Years Used Date Smoking Tobacco: Never Smokeless Tobacco: Never Alcohol Use Standard Drinks/Week Comments Never 0 (1 standard drink = 0.6 oz pur e alcohol) AUDIT-C Answer Date Recorded Q1: How often do you have a drink containing alc ohol? 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 Date of Px/chemo/treatment/placement/transfer 08/27/2020 ?? Testing site patient will be sent to: [facility], [place] ?? Date testing requested: 08/24/2020 ?? Testing: COVID-RNA ?? Is this the first COVID-19 test for this patient? Does the patient currently work in a healthcare facility with direct patient contact? Unknown ?? Is the patient a resident of a congregate care or living setting? No ?? Is the patient ? No ?? Please select the performing region: [facility] PLOYMENT INSURANCE HEARING OFFICER documented in this encounter Miscellaneous Notes * Addendum Note - Kit Neely NP - 07/22/2020 2:46 PM CSTAddended by: KIT NEELY on: 08/24/2020 02:18 PM Modules accepted: Orders documented in this encounter Plan of Treatment Upcoming Encounters Date Type Department Care Team (Late st Contact Info) Description 05/26/2024 1:30 PM UNEMPLOYMENT INSURANCE HEARING OFFICER Office Visit [facility] Ophthalmology [address] [facility] [address], [address] [place] [address] Raphael Hernández MD [address] [facility] DEPT OPHTHALMOLOGY, [address] [place] [address] documented as of this encounter Results * COVID-19 Coronavirus RNA Nasopharyngeal (08/24/2020 2:41 PM CDT) COVID-19 RNA Not Detected YAIMA DOMINIQUE Comment: Testing performed as a component of ??a specimen pool. ??Negative results should be treated as presumptive and, if inconsistent with clinical signs and symptoms or necessary for patient management, pooled samples should be tested individually. Negative results do not preclude SARS-CoV-2 infection and must not be used as the sole basis for patient management decisions. Negative results must be considered in the context of a patient? s recent exposures, history, presence of clinical signs and symptoms consistent with COVID-19. Interpretive Data Synonyms for this test include: PCR and NAAT . ??Testing performed by the [facility] Molecular Infectious Disease Laboratory. The 2019-Novel Coronavirus Assay (COVID-19)Real Time RT-PCR assay is for in vitro diagnostic use under FDA emergency use authorization only. A negative RT-PCR result does not preclude infection with COVID-19 and should not be used as the sole basis for treatment or other patient management decisions. ??Additional sample types have been validated according to CLIA regulations. ?? Current Interpretive Data was last revised on July 08, 2020. First COVID-19 test? Unknown [facility] Comment:Testing performed by : [facility], [address] [place] [address], [address] Employeed in healthcare? Unknown [facility] Comment:Testing performed by : [facility], [address] [place] [address], [id number] status? No [facility] Comment:Testing performed by : [facility], [address] [place] [address], [id number] Group care resident? No [facility] Comment:Testing performed by : [facility], [address] [place] [address], [address] Hospitalized? Unknown [facility] Comment:Testing performed by : [facility], [address] [place] [address], [id number] Is patient in ICU? Unknown [facility] Comment:Testing performed by : [facility], [address] [place] [address], [address] Symptomatic as defined by CDC? No [facility] Comment:Testing performed by : [address], [address] Nasopharyngeal 08/24/2020 2: 41 PM CDT 08/24/2020 8:41 PM CDT Narrative YAIMA DOMINIQUE - 08/25/2020 5:04 AM CDT What is the reason for testing?->Screening prior to scheduled procedure or surgery Srinath Frausto MD LAB MICROBIOLOGY - GENERAL ORDERABLES Final Result Performing Organization Address City/State/[facility] Co de Phone Number [facility] [address] [facility]. [place] [address] documented in this encounter Visit Diagnoses Diagnosis Preop testing- Primary Unspecified pre-operative examination Preop testing Unspecified pre-operative examination documented in this encounter Care Teams Shield Operator Relationship Specialty Start Date End Date Ananth Mullen MD PCP - General Internal Medicine 04/21/20 documented as of this encounter
--- OUTSIDE RECORDS SUMMARY | 2024-05-24 10:50 | XMS_ITS | Encounter Summary ---
Author Organization [facility] Healthcare Address [address] [place] [address] Care Team Providers Care Long Term Care Pharmacist Name Role Phone Ananth Mullen MD Primary Care Provider [phone] Encounter Details Date Type Department Care Team (Late st Contact Info) Description 05/31/2020 9:30 AM RELOCATION MANAGER - 05/31/2020 10:00 AM [facility] Surgery [facility] Endoscopy [address] [place] [address] Srinath Frausto MD [address] [facility] [address] [place] [address] ESOPHAGOGASTRODUODENOSCOPY Surgery Details Date/Time Status Location OR Service Patient Class Case Class Case Type Trauma Case? 05/31/2020 9:[address] [facility] ENDOSCOPY Endo 04 Gastroenterology Outpatient Elective Panel 1 Procedure LRB Anes Op Region Wound Class Comments ESOPHAGOGASTRODUODENOSCOPY N/A Monitor Anesthesia Care N/A Surgeon Surgeon Role Service Panel Srinath Frausto MD Primary Gastroent erology 1 documented in this encounter Social History Tobacco Use Types Packs/Day Years Used Date Smoking Tobacco: Never Smokeless Tobacco: Never Alcohol Use Standard Drinks/Week Comments Never 0 (1 standard drink = 0.6 oz pur e alcohol) AUDIT-C Answer Date Recorded Q1: How often do you have a drink containing alc ohol? Never 05/31/2020 Average Number of Drinks Not on file 020 Frequency of Binge Drinking Not on file 05/05 Comments No Sex and Gender Information Value Date Recorded Sex Assigned at Not on file Legal Sex Female 4:27 PM RELOCATION MANAGER Gender Identity Not on file Sexual Orientation Not on file documented as of this encounter Last Filed Vital Signs Vital Sign Reading Time Taken Comments Blood Pressure 113/69 05/31/2020 9:40 AM RELOCATION MANAGER Pulse 70 05/31/2020 9:40 AM RELOCATION MANAGER Temperature 36.3 ??C (97.3 ??F) 05/31/2020 9:31 AM CS T Respiratory Rate 13 05/31/2020 9:40 AM RELOCATION MANAGER Oxygen Saturation 96% 05/31/2020 9:40 AM RELOCATION MANAGER Inhaled Oxygen Concentration - - Weight 122.5 kg (270 lb) 05/31/2020 8:40 AM RELOCATION MANAGER Height 157.5 cm (5' 2 ) 05/31/2020 8:40 AM RELOCATION MANAGER Body Mass Index 49.38 05/31/2020 8:40 AM RELOCATION MANAGER documented in this encounter Discharge Instructions * Discharge Instructions* Sary Adam, RN - 05/31/2020 9:35 AM RELOCATION MANAGER Resume medication as prescribed unless otherwise directed. discussed findings. Discharge instructions given to patient, (and by phone - directed to brain picker location).Understanding expressed, questions answered.(No signatures due to CoVid19 protocol) Tolerating po fluids. Fall Precautions Safety Tips for Preventing Falls at Home Falls happen at home for many reasons. Here are several things that are known to add to your risk of falling: ?? Poor vision or hearing ?? History of falls ?? Use of an assistive device, such as a cane or walker ?? Poor nutrition ?? Certain medications ?? Multiple medications ?? Being older than 65 years of age ?? Conditions in the home, such as slippery floors, loose rugs, cords on the floor If you answer ???yes?? to any of the following questions, please consider discussing your risk of falling with your primary care practitioner: ?? Have you fallen in the last year? ?? Do you feel unsteady when standing or walking? ?? Do you have a fear of falling? If your primary care practitioner recommends physical therapy, we are available to assist: [facility] STAR: [facility] [place] [phone] [phone] [facility] [phone] How are some things that you can do that will lower your risk for falls at home: ?? Arrange furniture to prevent tripping or bumping into it. ?? Keep a light on in the bedroom & bathroom to help you see at night. ?? Have your doctor or pharmacist review your medications. ?? Remove things that you can trip over like phone cords, rugs & footstools. ?? Wear sturdy non-skid slippers or shoes with flat or low heels ?? Use handrails when going up & down stairs. Take one step at a time. ?? Begin a regular exercise program ?? When getting up, sit on the edge of the bed/chair for a few minutes before standing. Sit & stand up slowly. Avoid tilting your head back. ?? Watch out for sidewalks & curbs that are not even. ?? Replace worn walker, cane & crutch tips. Disclaimer: This material provides general information only. It should not be used in place of the advice, instructions, or treatment given by your doctor or other health point of care technician. CATION MANAGER documented in this encounter Medications at Time of Discharge venlafaxine (EFFEXOR) 75 mg tabletIndications :hx of depression Take 1 tablet (75 mg total) by mouth every morning 04/13/2020 calcium carbonate (CALCIUM 500 ORAL) Take by mouth 08/24/2020 ergocalciferol, vitamin D2, (VITAMIN D2 ORAL) Take by mouth 08/03 simvastatin (ZOCOR) 10 mg tabletIndications :hyperlipidemia Take 10 mg by mouth every morning 04/13/2020 10/03/2022 documented as of this encounter Discharge Disposition Disposition Code Departure Means Destination Discharge to home or self care documented in this encounter Procedure Notes * Srinath Frausto MD - 05/31/2020 9:19 AM CSTAssociated Order(s): EGD ENDOSCOPY LAB Patient Name: September Procedure Date: 05/31/2020 9:19 AM Date of : 1960 Admit Type: Outpatient Age: 60 Gender: Female Attending MD: Srinath Frausto M.D. Room: [facility] ENDOSCOPY ROOM 04 Note Status: Finalized Procedure: Upper GI endoscopy Indications: Assessment following Lisha-en-Y gastrojejunostomy Providers: Srinath Frausto M.D. Referring MD: Ananth Mullen M.D., Sharon De Paz, F.N.P. Medicines: Monitored Anesthesia Care Complications: No immediate complications. Estimated Blood Loss: Estimated blood loss: none. Procedure: Pre-Anesthesia Assessment: - Immediately prior to administration of medications, the patient was re-assessed for adequacy to receive sedatives. After obtaining informed consent, the endoscope was passed under direct vision. Throughout the procedure, the patient's blood pressure, pulse, and oxygen saturations were monitored continuously. The [id number] was introduced through the mouth, and advanced to the jejunum. The upper GI endoscopy was accomplished without difficulty. The patient tolerated the procedure well. Findings: The examined esophagus was normal. Evidence of a Lisha-en-Y gastrojejunostomy was found. The gastrojejunal anastomosis was characterized by healthy appearing mucosa. The stoma was non-dilated and measured 12 mm. The pouch was enlarged however to 5 cm by 7 cm. The examined jejunum was normal. Impression: - Normal esophagus. - Lisha-en-Y gastrojejunostomy with gastrojejunal anastomosis characterized by healthy appearing mucosa. - The stoma was non-dilated but pouch was enlarged. - Normal examined jejunum. Recommendation: - Patient would benefit from POUCH revision for weight loss. - Return to bariatric clinic and proceed with procedure planning. - - Attending Participation: I personally performed the entire procedure. Electronically signed by Srinath Frausto MD Srinath Frausto M.D. 05/31/2020 9:30:22 AM Number of Addenda: 0 Note Initiated On: 05/31/2020 9:19 AM CATION MANAGER documented in this encounter Miscellaneous Notes * Pre-Procedure Instructions - Diamond Gutierrez RN - 05/27/2020 9:42 AM RELOCATION MANAGER Typically for this procedure we say do not eat or drink after midnight, but please follow any instruction the office has given you. Come to [facility] main entrance. There is free title inspector parking at this entrance or there is parking in front of the building. As you enter there will be an information desk, let them know you are here for a procedure. Once onthe elevator press button for Procedure level or LL . That will take you down one level to registration. Once registered you will have a seat and one of the endoscopy nurses will come to get you ready for your procedure. For your safety all staff will be screened and wearing a mask. Bring current medication list for review. Dress comfortably. Leave any valuable at home, specifically payan or jewelry. For your safety due to the anesthesia you won't be able to drive. Please no form of public transportation or medical transport by yourself will be allowed. For your safety and the safety of others per [facility] guidelines you are allowed one person to accompanyyou. You and this person will be screened for COVID-19 exposure, symptoms, fever. You and this person will be required to wear a mask at all times, if you do not have one, one will be provided for you. This person may wait for you in car if they choose. They may also wait for you in waiting room or cafe where chairs are spaced for distancing and are cleaned between use. Thank you in advance for your patience and understanding. My number here is [phone] CATION MANAGER documented in this encounter Plan of Treatment Upcoming Encounters Date Type Department Care Team (Late st Contact Info) Description 05/26/2024 1:30 PM RELOCATION MANAGER Office Visit [facility] Ophthalmology [address] [facility] [address], [address] [place] [address] Raphael Hernández MD [address] [facility] DEPT OPHTHALMOLOGY, [address] [place] [address] documented as of this encounter Procedures Procedure Name Priority Date/Time Associated Diagnosis Comments EGD 05/31/2020 9:19 AM RELOCATION MANAGER ESOPHAGOGASTRODUODENOSCOPY 05/31 9:14 AM RELOCATION MANAGER Heartburn Weight gain following gastric bypass surgery Preoperative examination documented in this encounter Results * EGD (05/31/2020 9:19 AM RELOCATION MANAGER) Anatomical Region Laterality Modality Other Narrative Procedure Note Srinath Frausto MD - 05/31/2020 9:19 AM CST ENDOSCOPY LAB Patient Name: September Abrahan Procedure Date: 05/31/2020 9:19 AM Date of : 1960 Admit Type: Outpatient Age: 60 Gender: Female Attending MD: Srinath Frausto M.D. Room: [facility] ENDOSCOPY ROOM 04 Note Status: Finalized Procedure: Upper GI endoscopy Indications: Assessment following Lisha-en-Y gastrojejunostomy Providers: Srinath Frausto M.D. Referring MD: Ananth Mullen M.D., Jennifer Lomeli.N.Lexi Medicines: Monitored Anesthesia Care Complications: No immediate complications. Estimated Blood Loss: Estimated blood loss: none. Procedure: Pre-Anesthesia Assessment: - Immediately prior to administration of medications,the patient was re-assessed for adequacy to receivesedatives. After obtaining informed consent, the endoscope waspassed under direct vision. Throughout the procedure, the patient's blood pressure, pulse, and oxygen saturations were monitored continuously. The [id number] was introduced through the mouth, and advanced to thejejunum. The upper GI endoscopy was accomplished without difficulty. The patient tolerated the procedure well. Findings: The examined esophagus was normal. Evidence of a Lisha-en-Y gastrojejunostomy was found. Thegastrojejunal anastomosis was characterized by healthy appearing mucosa. The stomawas non-dilated and measured 12 mm. The pouch was enlarged however to 5cm by 7 cm. The examined jejunum was normal. Impression: - Normal esophagus. - Lisha-en-Y gastrojejunostomy with gastrojejunal anastomosis characterized by healthy appearingmucosa. - The stoma was non-dilated but pouch was enlarged. - Normal examined jejunum. Recommendation: - Patient would benefit from POUCH revision for weight loss. - Return to bariatric clinic and proceed with procedure planning. - - Attending Participation: I personally performed the entire procedure. Electronically signed by Srinath Frausto MD Srinath Frausto M.D. 05/31/2020 9:30:22 AM Number of Addenda: 0 Note Initiated On: 05/31/2020 9:19 AM rSinath Frausto MD ENDOSCOPY PROCEDUR ES Final Result documented in this encounter Visit Diagnoses Diagnosis Heartburn Weight gain following gastric bypass surgery Preoperative examination Unspecified pre-operative examination Heartburn Weight gain following gastric bypass surgery Preoperative examination Unspecified pre-operative examination documented in this encounter Admitting Diagnoses Diagnosis Heartburn Weight gain following gastric bypass surgery Preoperative examination Unspecified pre-operative examination documented in this encounter Administered Medications Inactive Administered Medications - up to 3 most recent administrations Medication Order MAR Action Action Date Dose Rate Site sodium chloride 0.9% flush 0.5-20 mL 0.5-20 mL, intra-catheter, As needed, line care, Starting on Sun05/31/20 at 0836, Pre-Procedure (GI), Flush volume based on line type and size. Flush before and after each use. , Indications: FlushingIndications:Flushing sodium chloride 0.9% infusion 30 mL/hr, intravenous, Continuous, Starting on Sun05/31/20 at 0915, Pre-Procedure (GI) Rate/Dose Verify 05/31/2020 9:20 AM RELOCATION MANAGER New Bag 05/31/2020 9:19 AM RELOCATION MANAGER New Bag 05/31/2020 9:00 AM RELOCATION MANAGER 30 mL/hr 30 mL/hr documented in this encounter Active and Recently Administered Medications Times are shown in RELOCATION MANAGER. Continuous Medication Order 05/29/2020 05/30/2020 05/31/2020 sodium chloride 0.9% infusion 30 mL/hr, intravenous, Continuous, Starting on Sun05/31/20 at 0915, Pre-Procedure (GI) 0900 (New Bag - Prov ider: Octaviano Beatty, FLOYD)0919 (New Bag - Provider: Jaciel Ramirez CRNA)0920 (Rate/Dose Verify - Provider: Jaciel Ramirez CRNA)0930 (Anesthesia Volume Adjustment - Provider: Jaciel Ramirez CRNA)0955 (Stopped - Provider: Sary Adam, FLOYD) PRN Medication Order 05/29/2020 05/30/2020 05/31/2020 sodium chloride 0.9% flush 0.5-20 mL 0.5-20 mL, intra-catheter, As needed, line care, Starting on Sun05/31/20 at 0836, Pre-Procedure (GI), Flush volume based on line type and size. Flush before and after each use. , Indications: Flushing 0844 (AUG Hold - Pro vider: Automatic Transfer Provider - Reason: Patient not available)1413 (AUG Unhold - Provider: Automatic Discharge Provider) documented in this encounter Orders Medications Ordered That Pratik ht Not Have Been Administered Count Last Ordered Date First Ordered Date sodium chloride 0.9% flush 0.5-20 mL 1 05/05 documented in this encounter Care Teams Long Term Care Pharmacist Relationship Specialty Start Date End Date Ananth Mullen MD PCP - General Internal Medicine 04/21/20 documented as of this encounter
--- OUTSIDE RECORDS SUMMARY | 2024-05-24 10:50 | XMS_ITS | Encounter Summary ---
Author Organization [facility] Healthcare Address [address] [place] [address] Care Team Providers Care Web Solutions Architect Name Role Phone Ananth Mullen MD Primary Care Provider [phone] Encounter Details Date Type Department Care Team (Late st Contact Info) Description 05/31/2020 9:13 AM WORLDWIDE CHIEF CREATIVE OFFICER Anesthesia Event [facility] End[facility] [address] [facility] [place] [address] John Segura MD [address] [place] [address] Anesthesia Record Procedure Summary Procedure Name Responsible Anesthesiologist Anesthesia Start Time Anesthesia Stop Time ESOPHAGOGASTRODUODENOSCOPY John Segura MD 0913 05/31/20 0933 Events Date Time Event Comment 05/31/2020 0849 AN Equip Check 0901 0913 An Start 0913 An Start Data 0914 In Room 0919 Start Supplemental O2 0919 Patient Positioned Laterally 0919 An Induction The patient was reevaluated immediately before moderate or deep sedation use and before anesthesia induction. 0920 Anesthesia Ready 0921 Proc Start 0924 Proc Fin 0929 Out of Room 0930 an stop data 0933 Handoff to RN I completed my handoff to the receiving nurse during which we: 1. Patient identified 2. Responsible provider identified 3. Pertinent medical history reviewed 4. Procedure type and surgical course discussed 5. Intraoperative anesthetic management and any significant issues discussed 6. Expectations and concerns for postop period discussed 7. Questions solicited from receiving nurse 8. Patient disposition at the time of handoff: PACU 0933 An Stop Meds Name Total propofol 200 mg lidocaine 2 % 5 mL sodium chloride 0.9% infusion 200 mL * Agents Name O2 * Blood No blood administrations on file. Lines, Drains, and Airways Type Details Placement Removal Peripheral IV Placement Date: 05/05 01/21; Placement Time: 899; Catheter Size: 22 G; Orientation: Right; Location: Hand; Site Prep: Chlorhexidine; Inserted by: Marlen Beatty RN; Insertion Attempts: 1; Patient Tolerance: Tolerated well; Removal Date: 05/31/20; Removal Time: 954; Removal Reason: Discharge 05/31/20899 by Octaviano Beatty RN 05/31/20954 by Sary Adam RN documented in this encounter Social History Tobacco [...] on file Legal Sex Female 4:27 PM WORLDWIDE CHIEF CREATIVE OFFICER Gender Identity Not on file Sexual Orientation Not on file documented as of this encounter OR Notes * Anesthesia Postprocedure Evaluation - John Segura MD - 05/31/2020 10:10 AM CST Patient: September Abrahan Procedure Summary Date: 05/31/20 Room / Location: [facility] ROOM 04 / [facility] Anesthesia Start: 912 Anesthesia Stop: 932 Procedure: ESOPHAGOGASTRODUODENOSCOPY (N/A ) Diagnosis: Heartburn Weight gain following gastric bypass surgery Preoperative examination (Heartburn [R12]) (Weight gain following gastric bypass surgery [R63.5, Z98.84]) (Preoperative examination [Z01.818]) Providers: Srinath Frausto MD Responsible Provider: Jhon Segura MD Anesthesia Type: general ASA Status: 3 Anesthesia Type: general Last vitals BP 113/69 Pulse 70 Temp 36.3 ??C (97.3 ??F) (Temporal) Resp 13 SpO2 96% Anesthesia Post Evaluation Patient location during evaluation: PACU Patient participation: complete - patient participated Level of consciousness: fully awake Pain score: 0 Pain management: adequate Airway patency: adequate Evidence of recall: no Anesthetic complications: no Cardiovascular status: hemodynamically stable and acceptable Respiratory status: acceptable and room air Hydration status: acceptable Pt is: normothermic Nausea/Vomiting status: none DWIDE CHIEF CREATIVE OFFICER * Anesthesia Preprocedure Evaluation - John Segura MD - 05/31/2020 9:01 AM CST Images from the original note were not included. Anesthesia Evaluation September Abrahan is a 60 y.o. female Procedure(s): ESOPHAGOGASTRODUODENOSCOPY Pre-Op Diagnosis Codes: * Heartburn [R12] * Weight gain following gastric bypass surgery [R63.5, Z98.84] * Preoperative examination [Z01.818] Patient Active Problem List Diagnosis ??? Heartburn ??? Weight gain following gastric bypass surgery ??? Preoperative examination ??? Hx of hysterectomy ??? Arthritis ??? History of Hood-en-Y gastric bypass Past Medical History: Diagnosis Date ??? Hyperlipidemia Past Surgical History: Procedure Laterality Date ??? COLONOSCOPY ??? HYSTERECTOMY 2003 ??? HOOD-EN-Y PROCEDURE 2004 ??? UPPER GASTROINTESTINAL ENDOSCOPY OB History No obstetric history on file. No Known Allergies Med List Status: Nurse Complete Set By: Octaviano Beatty RN at 05/31/2020 8:47 AM Taking? Last Dose Start Date End Date Provider calcium carbonate (CALCIUM 500 ORAL) 05/30/2020 -- -- Femi Sethi MD ergocalciferol, vitamin D2, (VITAMIN D2 ORAL) 05/30/2020 -- -- Femi Sethi MD simvastatin (ZOCOR) 10 mg tablet 05/30/2020 04/13/20 -- Femi Sethi MD venlafaxine (EFFEXOR) 75 mg tablet 05/30/2020 04/13/20 -- Femi Sethi MD Current Facility-Administered Medications: ??? [MAR Hold] sodium chloride 0.9% flush 0.5-20 mL, 0.5-20 mL, intra-catheter, PRN ??? sodium chloride 0.9% infusion, 30 mL/hr, intravenous, Continuous Social History Tobacco Use Smoking Status Never Smoker Smokeless Tobacco Never Used Substance and Sexual Activity Alcohol Use Never ??? Frequency: Never Substance and Sexual Activity Drug Use Never History reviewed. No pertinent family history. Vitals: 05/31/20 0840 05/31/20 0845 05/31/20 0850 BP: 135/67 Pulse: 71 72 74 Resp: 19 18 20 Temp: 36.6 ??C (97.9 ??F) SpO2: 99% 100% 100% PT: No results found for requested labs within last 720 hours. INR: No results found for requested labs within last 720 hours. APTT: No results found for requested labs within last 720 hours. Hgb A1C: No results found for requested labs within last 720 hours. CBC RBC: No results found for requested labs within last 720 hours. RDW: No results found for requested labs within last 720 hours. MCHC: No results found for requested labs within last 720 hours. MCH: No results found for requested labs within last 720 hours. MCV: No results found for requested labs within last 720 hours. Hct: No results found for requested labs within last 720 hours. Hgb: No results found for requested labs within last 720 hours. WBC: No results found for requested labs within last 720 hours. MPV: No results found for requested labs within last 720 hours. Platelets: No results found for requested labs within last 720 hours. RDW CV: No results found for requested labs within last 720 hours. RDW Sd: No results found for requested labs within last 720 hours. BMP Glucose: No results found for requested labs within last 720 hours. Calcium: No results found for requested labs within last 720 hours. Sodium: No results found for requested labs within last 720 hours. Potassium: No results found for requested labs within last 720 hours. CO2: No results found for requested labs within last 720 hours. Chloride: No results found for requested labs within last 720 hours. BUN: No results found for requested labs within last 720 hours. Creatinine: No results found for requested labs within last 720 hours. DOS Physical Exam Medical history, medications, and allergies reviewed. Attestation: This PAT evaluation Airway Exam: Mallampati: III Cervical ROM: FROM Cardiovascular Exam: Rate: regular Rhythm: regular Pulmonary Exam: LCTA, bilat Anesthesia Plan ASA 3 My patient is approved for the Anesthesia Controlled Medication protocol when under care of a COMPRESSOR SERVICE TECHNICIAN Planned anesthesia: General Informed Consent: Anesthesia plan and risks discussed with patient. Plan and Consent Comments: M obesity Consent and Attending signature: I and/or my designee have discussed the anesthesia plan, benefits, possible alternatives, parental presence at time of induction (if indicated), and clinically relevant risks that may include dental injury, unintentional awareness, and/or other complications. The patient and/or parent/legal guardian understand, and agree to proceed. All questions answered. DWIDE CHIEF CREATIVE OFFICER documented in this encounter Plan of Treatment Upcoming Encounters Date Type Department Care Team (Late st Contact Info) Description 05/26/2024 1:30 PM WORLDWIDE CHIEF CREATIVE OFFICER Office Visit [facility] [address], [address] [place] [address] Raphael Hernández MD [address] [facility], [address] [place], [place] [id number] documented as of this encounter Visit Diagnoses Not on filedocumented in this encounter Administered Medications Inactive Administered Medications - up to 3 most recent administrations Medication Order MAR Action Action Date Dose Rate Site lidocaine (XYLOCAINE) 20 mg/mL (2 %) injection intravenous, As needed, Starting on Sun05/31/20 at 0919, Anesthesia Intra-op, Indications: Administration of Local AnesthesiaIndications:Administratio n of Local Anesthesia Given 05/31/2020 9:19 AM WORLDWIDE CHIEF CREATIVE OFFICER 5 mL propofoL (DIPRIVAN) IV intravenous, As needed, Starting on Sun05/31/20 at 0919, Anesthesia Intra-op Given 05/31/2020 9:23 AM WORLDWIDE CHIEF CREATIVE OFFICER 50 mg Given 05/31/2020 9:21 AM WORLDWIDE CHIEF CREATIVE OFFICER 50 mg Given 05/31/2020 9:19 AM WORLDWIDE CHIEF CREATIVE OFFICER 100 mg sodium chloride 0.9% infusion 30 mL/hr, intravenous, Continuous, Starting on Sun05/31/20 at 0915, Pre-Procedure (GI) Rate/Dose Verify 05/31/2020 9:20 AM WORLDWIDE CHIEF CREATIVE OFFICER New Bag 05/31/2020 9:19 AM WORLDWIDE CHIEF CREATIVE OFFICER New Bag 05/31/2020 9:00 AM WORLDWIDE CHIEF CREATIVE OFFICER 30 mL/hr 30 mL/hr documented in this encounter Care Teams Web Solutions Architect Relationship Specialty Start Date End Date Ananth Mullen MD PCP - General Internal Medicine 04/21/20 documented as of this encounter
--- OUTSIDE RECORDS SUMMARY | 2024-05-24 10:50 | XMS_ITS | Encounter Summary ---
Author Organization [facility] Healthcare Address [address] [place] [address] Care Team Providers Care Transmission Tester Name Role Phone Ananth Mullen MD Primary Care Provider [phone] Encounter Details Date Type Department Care Team (Latest Contact Info) Description 08/27/2020 7:39 AM CDT - 08/27/2020 12:00 PM CDT Hospital Encounter [facility] [address] [place] [address] Srinath Frausto MD [address] [facility] [address] [place], [place] [id number] Discharge Disposition: Discharge to home or self [...] on file 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 Gender Identity Not on file Sexual Orientation Not on file documented as of this encounter Last Filed Vital Signs Vital Sign Reading Time Taken Comments Blood Pressure 146/75 08/27/2020 11:20 AM CDT Pulse 73 08/27/2020 11:20 AM CDT Temperature 36.3 ??C (97.3 ??F) 08/27/2020 9:37 AM CD T Respiratory Rate 15 08/27/2020 11:20 AM CDT Oxygen Saturation 96% 08/27/2020 11:20 AM CDT Inhaled Oxygen Concentration - - Weight 119.7 kg (264 lb) 08/27/2020 7:50 AM CDT Height 157.5 cm (5' 2 ) 08/27/2020 7:50 AM CDT Body Mass Index 48.29 08/27/2020 7:50 AM CDT documented in this encounter Discharge Diagnoses Diagnosis Morbid (severe) obesity due to excess calories (HCC) - MORBID (SEVERE) OBESITY DUE TO EXCESS CALORIES Bariatric surgery status - BARIATRIC SURGERY STATUS Body mass index (BMI) 45.0-49.9, adult (HCC) - BODY MASS INDEX [BMI] 45.0-49.9, ADULT Hyperlipidemia, unspecified - HYPERLIPIDEMIA, UNSPECIFIED Major depressive disorder, single episode, unspecified - MAJOR DEPRESSIVE DISORDER, SINGLE EPISODE, UNSPECIFIED Anxiety disorder, unspecified - ANXIETY DISORDER, UNSPECIFIED Obstructive sleep apnea (adult) (pediatric) - OBSTRUCTIVE SLEEP APNEA (ADULT) (PEDIATRIC) Other chronic pain - OTHER CHRONIC PAIN Gastro-esophageal reflux disease without esophagitis - GASTRO-ESOPHAGEAL REFLUX DISEASE WITHOUT ESOPHAGITIS Unspecified osteoarthritis, unspecified site - UNSPECIFIED OSTEOARTHRITIS, UNSPECIFIED SITE 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 Specifically, if you are on a blood thinning medication (like coumadin, Plavix, Eliquis, Xarelto, etc) your endoscopy report will include instructions on what to do with these medications in the days after the endoscopy. If you have any questions about your medication regimen, please discuss them with your prescribing physician. -Do not drive a vehicle until cleared by your physician. -Do not drink alcohol while taking narcotic pain medication. Examples of narcotic pain medication include Percocet, Oxycontin, [place], Hydrocodone, and Oxycodone. -Do NOT make important personal or business decisions or sign legal documents for 24 hours. FAQs (frequently asked questions) about Surgical Site Infections What is a Surgical Site Infection (SSI)? A surgical site infection is and infection that occurs after surgery in the part of the body where the surgery took place. Most patients who have surgery do not develop an infection. However, infections develop in about 1 to 3 out of every 100 patients who have surgery. Some of the common symptoms fo a surgical site infection are: ?? Redness and pain around the area where you had surgery ?? Drainage of cloudy fluid from your surgical wound ?? Fever Can SSIs be treated? Yes. Most surgical site infections can be treated with antibiotics. The antibiotic given to you depends on the bacteria (germs) causing the infection. Sometimes patients with SSIs causing the infection. Sometimes patients with SSIs also need another surgery to treat the infection. What are some of the things that hospitals are doing to prevent SSIs? To prevent SSIs, doctors, nurses, and other healthcare providers: ?? Clean their hands and arms up to their elbows with an antiseptic agent just before the surgery. ?? Clean their hands with soap and water or an alcohol-based hand rub before and after caring for each patient. ?? May remove some of your hair immediately before your surgery using electric clippers if the hairis in the same area where the procedure will occur. They should not shave you with a razor. ?? Wear special hair covers, masks, gowns, and gloves during surgery to keep the surgery area clean. ?? Give you antibiotics before your surgery starts. In most cases, you should get antibiotics within 60 minutes before the surgery starts and the antibiotics should be stopped within 24 hours after surgery. ?? Clean the skin at the site of your surgery with a special soap that kills germs. What can I do to help prevent SSIs? Before your surgery: ?? Tell your doctor about other medical problems you may have. Health problems such as allergies, diabetes, and obesity could affect your surgery and your treatment. ?? Quit smoking. Patients who smoke get more infections. Talk to your doctor about how you can quitbefore your surgery. ?? Do not shave near where you will have surgery. Shaving with a razor can irritate your skin and make it easier to develop an infection. At the time of your surgery: ?? Speak up if someone tries to shave you with a razor before surgery. Ask why you need to be shaved and talk with your surgeon if you have any concerns. ?? Ask if you will get antibiotics before surgery. After your surgery: ?? Make sure that your healthcare providers clean their hands before examining you, either with soap and water or an alcohol-based hand rub. ?? If you do not see you providers clean their hands, please ask them to do so. ?? Family and friends who visit you should not touch the surgical wound or dressings. ?? Family and friends should clean their hands with soap and water or an alcohol-based hand rub before and after visiting You. If you do not see them clean their hands, ask them to clean their hands. What do I need to do when I go home from the hospital? ?? Before you go home, your doctor or nurse should explain everything you need to know about takingcare of your wound. Make sure you understand how to care for your wound before you leave the hospital. ?? Always clean your hands before and after caring for your wound. ?? Before you go home, make sure you know who to contact if you have questions or problems after you get home. ?? If you have any symptoms of an infection, such as a redness and pain at the surgery site, drainage, or fever, call your doctor immediately. If you have additional questions, please ask your doctor or nurse. Safety Tips for Preventing Falls at Home [...] physical therapy, we are available to assist: [facility] [place] [phone] [place] [phone] [facility] [phone] How are some things that you can [...] given by your doctor or other health animal care service worker. documented in this encounter Medications at Time [...] mouth every morning Bariatric Advantage without iron venlafaxine (EFFEXOR) 75 mg tabletIndication s:hx of depression Take 1 tablet (75 mg total) by mouth every morning 04/13/2020 aprepitant (EMEND) 40 mg capsule Take 40 mg by mouth once Pre-surgical, take morning of surgery 1 LORazepam (ATIVAN) 0.5 mg tablet Take 0.5 mg by mouth every 6 (six) hours as needed for nausea 08/27/2020 1 omeprazole (PriLOSEC) 40 mg capsuleIndicatio ns:Treatment of Non-Bleeding Gastric Disorder Take 1 capsule (40 mg total) by mouth 2 (two) times a day before breakfast and dinner 60 capsule 2 08/11/2020 3 oxyCODONE (ROXICODONE) 5 mg immediate release tabletIndication s:Pain Take 1 tablet (5 mg total) by mouth every 6 (six) hours as needed for pain for up to 15 days 15 tablet 08/27/2020 1 scopolamine 1 mg over 3 days patch [address] 1 patch on the skin once Pre-surgical 08/11/2020 1 simvastatin (ZOCOR) 10 mg tabletIndication s:hyperlipidemia Take 10 mg by mouth every morning 04/13/2020 3 documented as of this encounter Ordered Prescriptions Prescription Sig Dispense Quantity Refills Last Filled Start Date End Date oxyCODONE (ROXICODONE) 5 mg immediate release tabletIndications: Pain Take 1 tablet (5 mg total) by mouth every 6 (six) hours as needed for pain for up to 15 days 15 tablet 08/27/2020 09/06/2020 documented in this encounter Discharge Disposition Disposition Code Departure Means Destination Discharge to home or self care documented in this encounter Procedure Notes * Srinath Frausto MD - 08/27/2020 9:00 AM CDTAssociated Order(s): EGD ENDOSCOPY LAB Patient Name: September Procedure Date: 08/27/2020 9:00 AM Date of : 1960 Admit Type: Outpatient Age: 60 Gender: Female Attending MD: Farhan ChambersD. Room: [facility] END[facility]COPY ROOM 04 Note Status: Finalized Procedure: Upper GI endoscopy Indications: Obesity, weight regain after gastric bypass, endoscopic revision to decrease pouch size. Providers: Srinath Frausto M.D. Referring MD: Ananth Mullen M.D. Medicines: Ancef 2000 mg IV, General Anesthesia Complications: No immediate complications. Estimated Blood Loss: Estimated blood loss was minimal. Procedure: Pre-Anesthesia Assessment: - Immediately prior to administration of medications, the patient was re-assessed for adequacy to receive sedatives. After obtaining informed consent, the endoscope was passed under direct vision. Throughout the procedure, the patient's blood pressure, pulse, and oxygen saturations were monitored continuously. The [id number] was introduced through the mouth, and advanced to the jejunum. The [id number] was introduced through the mouth, and advanced to the jejunum. The upper GI endoscopy was accomplished without difficulty. The patient tolerated the procedure well. Findings: The esophagus was normal. Evidence of a Lisha-en-Y gastrojejunostomy was found. The gastrojejunal anastomosis was characterized by healthy appearing mucosa. The stoma was 12 mm in diameter. The pouch was dilated. The examined jejunum was normal. Preparations were made for pouch revision. To facilitate tissue remodeling coagulation for tissue destruction using argon beam at 1 liter/minute and 60 garcia was successful at the stoma and to horacio the location of sutures for pouch revision. Next the overtube was placed and [place] Overstitch was attached to the endoscope. Two running sutures were used in a U pattern to decrease the volume of the pouch by 70%. At the completion of the procedure the pouch was reduced in size and there was no bleeding or mucosal defects. The endoscope was removed. Impression: - Normal esophagus. - Lisha-en-Y gastrojejunostomy with gastrojejunal anastomosis characterized by healthy appearing mucosa. Successful pouch revision/ gastroplasty. - Normal examined jejunum. Recommendation: - Observe patient's clinical course following today's procedure with therapeutic intervention. - Observe patient in GI recovery unit for 2 hours for observation. - Clear liquid diet for 48-72 hr, then full liquid diet for 2 weeks and purred diet for 2 weeks after that and soft diet 2 weeks. Advance diet as tolerated thereafter. - Follow up in clinic with Dr. Frausto as scheduled. - Use antiemetics as directed. - Use proton pump inhibitor twice a day for 4 weeks to help with healing. - In the unusual situation that you develop abdominal pain, bleeding or other significant problems in the days following this procedure please call my office at [phone] ([phone]) to speak to Dr. Frausto's nurses. After hours and evenings please call [phone] and speak to the GI fellow oncology rn. Please tell them that Dr. Frausto did your procedure and that your were instructed to have the fellow call me or the physician covering for me to discuss the management of your condition. If you have an urgent problem, please go to the nearest emergency room and have the ER doctor call my office during the day or the GI Fellow after hours and weekends to arrange admission or transfer to our facility. - - Attending Participation: I personally performed the entire procedure. Electronically signed by Srinath Frausto MD Srinath Frausto M.D. 08/27/2020 9:28:13 AM Number of Addenda: 0 Note Initiated On: 08/27/2020 9:00 AM documented in this encounter Miscellaneous Notes * Perioperative Nursing Note - Nease, Mary Mar, RN - 08/27/2020 9:56 AM CDT Call placed to patients friend with update * Pre-Procedure Instructions - Diamond Gutierrez RN - 08/26/2020 3:10 PM CDT Typically for this procedure we say do not eat or drink after midnight, but please follow any instruction the office has given you. Come to [facility] hospital entrance. There is free teacher preschool parking at this entrance or there is parking infront of the building. As you enter there [...] will be screened and wearing a mask. Medications as directed at pre-test appt. Dress comfortably. Leave any valuable at home, specifically payan or jewelry. For your safety due to the anesthesia you won't be able to drive. Please no form of public transportation or medical transport by yourself will be allowed. For your safety and the safety of others per [facility] guidelines you are allowed one person to [...] patience and understanding. 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, [address] [place] [address] Raphael Hernández MD [address] [facility]ALMOLOGY, [address] [place] [address] documented as of this encounter Procedures Procedure Name Priority Date/Time Associated Diagnosis Comments EGD 08/27/2020 9:00 AM CDT SLEEVE GASTROPLASTY 08/27/2020 8 :52 AM CDT Class 3 severe obesity in adult, unspecified BMI, unspecified obesity type, unspecified whether serious comorbidity present (CMS/HCC) ESOPHAGOGASTRODUODENOSCOPY 08/27 8:52 AM CDT Class 3 severe obesity in adult, unspecified BMI, unspecified obesity type, unspecified whether serious comorbidity present (CMS/HCC) documented in this encounter Results * EGD (08/27/2020 9:00 AM CDT) Anatomical Region Laterality Modality Other Narrative Procedure Note Srinath Frausto MD - 08/27/2020 9:00 AM CDT ENDOSCOPY LAB Patient Name: September Procedure Date: 08/27/2020 9:00 AM Date of : 1960 Admit Type: Outpatient Age: 60 Gender: Female Attending MD: Srinath Frausto M.D. Room: [facility] 04 Note Status: Finalized Procedure: Upper GI endoscopy Indications: Obesity, weight regain after gastric bypass, endoscopic revision to decrease pouch size. Providers: Srinath Frausto M.D. Referring MD: Ananth Mullen M.D. Medicines: Ancef 2000 mg IV, General Anesthesia Complications: No immediate complications. Estimated Blood Loss: Estimated blood loss was minimal. Procedure: Pre-Anesthesia Assessment: - Immediately prior to administration ofmedications, the patient was re-assessed for adequacy to receive sedatives. After obtaining informed consent, the endoscope was passed under direct vision. Throughout theprocedure, the patient's blood pressure, pulse, and oxygen saturations were monitored continuously. The [id number] was introduced through the mouth,and advanced to the jejunum. The [id number] was introduced through the mouth, and advanced to the jejunum. The upper GI endoscopy was accomplished without difficulty. The patient tolerated the procedure well. Findings: The esophagus was normal. Evidence of a Lisha-en-Y gastrojejunostomy was found. Thegastrojejunal anastomosis was characterized by healthy appearing mucosa. The stomawas 12 mm in diameter. The pouch was dilated. The examined jejunum was normal. Preparations were made for pouch revision. To facilitate tissue remodeling coagulation for tissue destruction using argon beam at 1 liter/minute and 60 garcia was successful at the stoma and to horacio the location of sutures for pouch revision. Next the overtube was placedand [place] Overstitch was attached to the endoscope. Two running sutures were used in a U pattern to decrease the volume of the pouch by 70%.At the completion of the procedure the pouch was reduced in size andthere was no bleeding or mucosal defects. The endoscope was removed. Impression: - Normal esophagus. - Lisha-en-Y gastrojejunostomy with gastrojejunal anastomosis characterized by healthy appearingmucosa. Successful pouch revision/ gastroplasty. - Normal examined jejunum. Recommendation: - Observe patient's clinical course followingtoday's procedure with therapeutic intervention. - Observe patient in GI recovery unit for 2 hoursfor observation. - Clear liquid diet for 48-72 hr, then full liquid diet for 2 weeks and purred diet for 2 weeks after that and soft diet 2 weeks. Advance diet astolerated thereafter. - Follow up in clinic with Dr. Frausto asscheduled. - Use antiemetics as directed. - Use proton pump inhibitor twice a day for 4 weeksto help with healing. - In the unusual situation that you developabdominal pain, bleeding or other significant problems in the days following this procedure please call my officeat [phone] ([phone]) to speak to 's nurses. After hours and evenings please call [phone] and speak to the GI fellow oncology rn. Please tell them that Dr. Frausto did yourprocedure and that your were instructed to have the fellowcall me or the physician covering for me to discuss the management of your condition. If you have an urgent problem, please go to the nearest emergency roomand have the ER doctor call my office during the day or the GI Fellow after hours and weekends to arrange admission or transfer to our facility. - - Attending Participation: I personally performed the entire procedure. Electronically signed by Srinath Frausot MD Srinath Frausto M.D. 08/27/2020 9:28:13 AM Number of Addenda: 0 Note Initiated On: 08/27/2020 9:00 AM us Srinath Frausto MD ENDOSCOPY PROCEDUR ES Final Result documented in this encounter Visit Diagnoses Diagnosis Class 3 severe obesity in adult (HCC)- Primary documented in this encounter Admitting Diagnoses Diagnosis Class 3 severe obesity in adult (HCC) documented in this encounter Administered Medications Inactive Administered Medications - up to 3 most recent administrations Medication Order MAR Action Action Date Dose Rate Site fentaNYL (SUBLIMAZE) preservative free injection 25 mcg 25 mcg, intravenous, Every 1 hour PRN, 1st line for pain, other, if allergic to Hydromorphone, Starting on Sun08/27/20 at 0937, For 3 doses, Recovery (GI), Notify MD of pain score greater than 4., Indications: PainIndications:Pain Given 08/27/2020 9:30 AM CDT 25 mcg HYDROmorphone (DILAUDID) injection 1 mg 1 mg, intravenous, Administer over 2 Minutes, Every 1 hour PRN, 1st line for pain, Starting on Sun08/27/20 at 0937, For 3 doses, Recovery (GI), Notify MD of pain score greater than 4., Indications: PainIndications:Pain Lactated Ringer's (LR) infusion 30 mL/hr, intravenous, Continuous, Starting on Sun08/27/20 at 0830, Pre-Procedure (GI) Rate/Dose Change 08/27/2020 9:29 AM CDT 700 mL/hr New Bag 08/27/2020 8:11 AM CDT 30 mL/hr 30 mL/hr LORazepam (ATIVAN) injection 1 mg 1 mg, intravenous, Every 30 min PRN, abdominal pain or spasms, Starting on Sun08/27/20 at 0937, For 2 doses, Recovery (GI), For IV administration, dilute with equal volume of 0.9% sodium chloride. Do not exceed a rate of 2 mg/minute, Indications: Muscle Spasm with PainIndications:Muscle Spasm with Pain Given 08/27/2020 10:05 AM CDT 1 mg oxyCODONE (ROXICODONE) tablet 5 mg 5 mg, oral, Once, On Sun08/27/20 at 1200, For 1 dose, Phase I & Post-op Floor, Indications: PainIndications:Pain Given 08/27/2020 11:32 AM CDT 5 mg prochlorperazine (COMPAZINE) injection 5 mg 5 mg, intravenous, Administer over 2 Minutes, Every 6 hours PRN, nausea, vomiting, Starting on Sun08/27/20 at 0930 sodium chloride 0.9% flush 0.5-20 mL 0.5-20 mL, intra-catheter, As needed, line care, Starting on Sun08/27/20 at 0745, Pre-Procedure (GI), Flush volume based on line type and size. Flush before and after each use. , Indications: FlushingIndications:Flushing documented in this encounter Active and Recently Administered Medications Times are shown in CDT. Scheduled Medication Order 08/25/2020 08/26/2020 08/27/2020 oxyCODONE (ROXICODONE) tablet 5 mg (COMPLETED) 5 mg, oral, Once, On Sun08/27/20 at 1200, For 1 dose, Phase I & Post-op Floor, Indications: Pain 1132 (Given - Provid er: Mary Parr RN) Continuous Medication Order 08/25/2020 08/26/2020 08/27/2020 Lactated Ringer's (LR) infusion 30 mL/hr, intravenous, Continuous, Starting on Sun08/27/20 at 0830, Pre-Procedure (GI) 0811 (New Bag - Prov ider: Audrey Tomlinson RN)0929 (Rate/Dose Change - Provider: Laure Salinas CRNA) PRN Medication Order 08/25/2020 08/26/2020 08/27/2020 acetaminophen (TYLENOL) tablet 650 mg 650 mg, oral, Every 4 hours PRN, headaches, fever, temperature greater than 38.3 C, Starting on Sun08/27/20 at 0937, Indications: Fever, Headache Disorder famotidine (PEPCID) tablet 20 mg 20 mg, oral, Every 12 hours PRN, indigestion, heartburn, Starting on Sun08/27/20 at 0937, Indications: Heartburn fentaNYL (SUBLIMAZE) preservative free injection 25 mcg(Linked Group 1) 25 mcg, intravenous, Every 1 hour PRN, 1st line for pain, other, if allergic to Hydromorphone, Starting on Sun08/27/20 at 0937, For 3 doses, Recovery (GI), Notify MD of pain score greater than 4., Indications: Pain 0930 (Given - Provid er: Laure Salinas CRNA) HYDROmorphone (DILAUDID) injection 1 mg(Linked Group 1) 1 mg, intravenous, Administer over 2 Minutes, Every 1 hour PRN, 1st line for pain, Starting on Sun08/27/20 at 0937, For 3 doses, Recovery (GI), Notify MD of pain score greater than 4., Indications: Pain 0930 (See Alternativ e - Provider: Laure Salinas CRNA) LORazepam (ATIVAN) injection 1 mg 1 mg, intravenous, Every 30 min PRN, abdominal pain or spasms, Starting on Sun08/27/20 at 0937, For 2 doses, Recovery (GI), For IV administration, dilute with equal volume of 0.9% sodium chloride. Do not exceed a rate of 2 mg/minute, Indications: Muscle Spasm with Pain 1005 (Given - Provid er: Mary Parr RN) ondansetron (ZOFRAN) injection 4 mg 4 mg, intravenous, Administer over 2 Minutes, Every 30 min PRN, nausea, vomiting, Starting on Sun08/27/20 at 0937, For 2 doses, Recovery (GI), Indications: Nausea and Vomiting ondansetron (ZOFRAN) injection 4 mg 4 mg, intravenous, Administer over 2 Minutes, Every 6 hours PRN, nausea, vomiting, Starting on Sun08/27/20 at 0937, Indications: Nausea and Vomiting prochlorperazine (COMPAZINE) injection 5 mg 5 mg, intravenous, Administer over 2 Minutes, Every 6 hours PRN, nausea, vomiting, Starting on Sun08/27/20 at 0930 sodium chloride 0.9% flush 0.5-20 mL 0.5-20 mL, intra-catheter, As needed, line care, Starting on Sun08/27/20 at 0745, Pre-Procedure (GI), Flush volume based on line type and size. Flush before and after each use. , Indications: Flushing Linked Groups Order Group 1: HYDROmorphone (DILAUDID) injection 1 mgJump to med 1 mg, intravenous, Administer over 2 Minutes, Every 1 hour PRN, 1st line for pain, Starting on Sun08/27/20 at 0937, For 3 doses, Recovery (GI), Notify MD of pain score greater than 4., Indications: Pain Or fentaNYL (SUBLIMAZE) preservative free injection 25 mcgJump to med 25 mcg, intravenous, Every 1 hour PRN, 1st line for pain, other, if allergic to Hydromorphone, Starting on Sun08/27/20 at 0937, For 3 doses, Recovery (GI), Notify MD of pain score greater than 4., Indications: Pain documented in this encounter Orders Medications Ordered That Pratik ht Not Have Been Administered Count Last Ordered Date First Ordered Date acetaminophen (TYLENOL) tablet 650 mg 1 famotidine (PEPCID) tablet 20 mg 1 08/28/19 fentaNYL (SUBLIMAZE) preserv ative free injection 25 mcg 1 08/27/2020 HYDROmorphone (DILAUDID) injection 1 mg 1 0 08/27/2020 Lactated Ringer's (LR) infusion 1 ondansetron (ZOFRAN) injection 4 mg 2 08/27 prochlorperazine (COMPAZINE) injection 5 mg 1 08/27/2020 sodium chloride 0.9% flush 0.5-20 mL 1 08/03 documented in this encounter Care Teams Transmission Tester Relationship Specialty Start Date End Date Ananth Mullen MD PCP - General Internal Medicine 04/21/20 documented as of this encounter
--- OUTSIDE RECORDS SUMMARY | 2024-05-24 10:50 | XMS_ITS | Encounter Summary ---
Author Organization [facility] Healthcare Address [address] [place] [address] Care Team Providers Care Network Support Name Role Phone Ananth Mullen MD Primary Care Provider [phone] Reason for Visit * Reason Comments Nutrition Counseling Weight gain followi ng gastric bypass surgery R63.5, Z98.84 * Consultation (Routine) - Closed Specialty Diagnoses / Procedures Referred By Ambika montoya Referred To Contact Diabetes and Nutrition Services Diagnoses Weight gain following gastric bypass surgery Preoperative examination Sharon De Paz NP [address] [place] [address] Phone: tel: fax: [address] [phone] Referral ID Status Reason Start Date Expiration Date V isits Requested Visits Authorized [id number] Closed Specialty Services Required 04/23/2020 05/23/2021 13 13 Encounter Details Date Type Department Care Team (Late st Contact Info) Description 07/27/2020 2:00 PM [facility] Clinical Support [facility] Diabetes and Nutrition [address] [facility] [address] [place] [address] Srinath Frausto MD [address] [place] [address] Weight gain following gastric bypass surgery; Preoperative examination Discharge Disposition: Discharge to home or self [...] on file Legal Sex Female 4:27 PM HEALTH ACTUARY Gender Identity Not on file Sexual Orientation Not on file documented as of this encounter Last Filed Vital Signs Vital Sign Reading Time Taken Comments Blood Pressure - - Pulse - - Temperature - - Respiratory Rate - - Oxygen Saturation - - Inhaled Oxygen Concentration - - Weight 122.5 kg (270 lb) 07/27/2020 2:0 0 PM [facility] reported weight but pt states she has not weighed in months Height 157.5 cm (5' 2 ) 07/27/2020 2:00 PM [facility] Body Mass Index 49.38 07/27/2020 2:00 PM [facility] documented in this encounter Patient Instructions * Patient Instructions* Elizabeth Raines RD - 07/27/2020 2:00 PM [facility] ACTUARY Goals: (marked X ): x Practice chewing 15-20 times per bite Make shopping list x Slow down eating put silverware down between bites Read food labels for protein, fat, sugar, and calories Eat mindfully Limit fat to 3-5 grams per serving x Restart B 12 and multivitamin - see educational material Read ingredient lists for sugar content Start Calcium with D Go grocery shopping x Stop sweets now Decrease portion size x Stop soda and beverages with carbonation x Select protein supplement before surgery Stop/limit fast foods Increase activity Stop/limit fried foods Keep electronic food records Eat more home prepared meal x Limit calories to 1200 Plan menu in advance Follow up with dietitian if needed or desired Food prep in advance x Please visit [employer], [employer] cares and listen to a lecture of your choice [facility] documented in this encounter Discharge Disposition Disposition Code Departure Means Destination Discharge to home or self care documented in this encounter Progress Notes * Elizabeth Raines Marilu, RD - 07/27/2020 2:00 PM CST Encounter Date: 07/27/2020 Referring Physician: Dr. Frausto / Radha De Paz NP Ms. Cate Gauthier is a 60 y.o. female : 1960 Start Time: 1400 End Time: 1500 Total Minutes: 60 min Ms. Gauthier's visit is for nutrition evaluation for endoscopic gastric outlet/pouch reduction revision Height: 157.5 cm (5' 2 ) Weight: 122.5 kg (270 lb)(reported weight but pt states she has not weighed in months) Body mass index is 49.38 kg/m??. Chief Complaint Patient presents with ??? Nutrition Counseling Weight gain following gastric bypass surgery R63.5, Z98.84 Patient Active Problem List Diagnosis ??? Heartburn ??? Weight gain following gastric bypass surgery ??? Hx of hysterectomy ??? Arthritis ??? History of Hood-en-Y gastric bypass ??? Class 3 severe obesity in adult (CMS/HCC) Past Surgical History: Procedure Laterality Date ??? COLONOSCOPY ??? HYSTERECTOMY 2003 ??? HOOD-EN-Y PROCEDURE 2004 ??? UPPER GASTROINTESTINAL ENDOSCOPY Lab Results Component Value Date CHOL 239 (H) 07/23/2020 TRIG 134 07/23/2020 HDL 65 07/23/2020 LDL 148 (H) 07/23/2020 ALBUMIN 4.1 07/23/2020 GLUCOSE 96 07/23/2020 HGBA1C 5.4 07/23/2020 IRON 136 07/23/2020 TIBC 374 07/23/2020 VITB12 226 07/23/2020 Ms. Gauthier reveals that she was not overweight as a child. She weighed 145 # in high school. She weighed 300 # when she had RYGB in 2004. She lost 125 # with the RYGB but has regained 100 # over the last 10 years. She has a pattern of losing weight and then regaining more than she lost. Her lowest adult weight was 135 #. Her highest weight was 300 #. Ms. Gauthier's current Weight: 122.5 kg (270 lb)(reported weight but pt states she has not weighed in months). Weight loss attempts: Diet Duration Pounds Lost Dates RYGB 15 years 125 # lost and 100 # regained [id number] Diet history reveals that Ms. Gauthier's diet is high in fat and high in carbohydrate. She eats sweets daily. She skips meals. Dairy intake is inadequate. She is lactose intolerant. Fruit intake is inadequate. Vegetable intake is inadequate. Whole grain intake is inadequate. She eats out at least 3-4x / week. Fast food intake is excessive. Dentition - she does not have problems chewing but she doesn't always chew her food well. She reports she does not eat as slow as she should. Menu planning - groceries in the home. Advance food preparation - none. Cooking - She is able to cook. Grocery shopping - She does not read food labels. Alcohol intake - none. Financial resources do not limit food choices. Portion sizes can be excessive depending on the food. Supplement use: Multivitamin - does nottake. Calcium supplement - takes. Vitamin D supplement - takes. Vitamin B 12 supplement - does not take. Activity level is sedentary. 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 Nutrition and lifestyle changes necessitated by this procedure were discussed with Ms. Gauthier. She believes the changes will be manageable. Bariatric nutrition educational materials given. The [place]-St Jeor formula estimates her resting energy expenditure at 1764 calories. A sedentary activity factor of 1.3 estimates her daily calorie needs at 2293. A 1200 calorie level should resultin approximately 2 # weight loss / week. Set protein goal at 60-80 grams. Ms. Gauthier understands that she will not be able to consume 1200 calories at first. She understands that this is an upper limit restriction and not a goal. Ms. Gauthier is a good candidate for endoscopic gastric outlet/pouch reduction revision. There appears to be no nutritional contraindications at this time. She desires surgery to improve her health andincrease her mobility. Goals: (marked X ): x Practice chewing 15-20 times per bite Make shopping list x Slow down eating put silverware down between bites Read food labels for protein, fat, sugar, and calories Eat mindfully Limit fat to 3-5 grams per serving x Restart B 12 and multivitamin - see educational material Read ingredient lists for sugar content Start Calcium with D Go grocery shopping x Stop sweets now Decrease portion size x Stop soda and beverages with carbonation x Select protein supplement before surgery Stop/limit fast foods Increase activity Stop/limit fried foods Keep electronic food records Eat more home prepared meal x Limit calories to 1200 Plan menu in advance Follow up with dietitian if needed or desired Food prep in advance x Please visit [employer], [employer] [facility] and listen to a lecture of your choice Elizabeth Raines RDN, LDN, CDCES Diabetes Education and Nutritional Counseling [facility] documented in this encounter Plan of Treatment Upcoming Encounters Date Type Department Care Team (Late st Contact Info) Description 05/26/2024 1:30 PM [facility] Office Visit [facility] [address] [facility] [address], [address] [place] [address] Raphael Hernández MD [address] [facility], [address] [place] [address] documented as of this encounter Visit Diagnoses Diagnosis Weight gain following gastric bypass surgery Preoperative examination Unspecified pre-operative examination documented in this encounter Orders Outpatient Referral Count Last Ordered Date Fir st Ordered Date AMB REFERRAL TO NUTRITION SERVICES 1 2020 documented in this encounter Care Teams Network Support Relationship Specialty Start Date End Date Ananth Mullen MD PCP - General Internal Medicine 04/21/20 documented as of this encounter
--- OUTSIDE RECORDS SUMMARY | 2024-05-24 10:50 | XMS_ITS | Encounter Summary ---
Author Organization [facility] Address [address] [place] [address] Phone Care Team Providers Care Layout Worker Name Role Phone Ananth Mullen MD Primary Care Provider [phone] Encounter Details Date Type Department Care Team (Late st Contact Info) Description 06/29/2020 Telephone [facility] Gastroenterology [address] [place] [id number] Sharon De Paz NP [address] [place], [place] [id number] Social History Tobacco Use Types Packs/Day Years [...] on file Legal Sex Female 4:27 PM BEADER TENDER Gender Identity Not on file Sexual Orientation Not on file documented as of this encounter Miscellaneous Notes * Telephone Encounter - Sharon De Paz NP - 06/29/2020 11:26 AM BEADER TENDER Pre procedure lab orders entered for [facility] ER TENDER documented in this encounter Plan of Treatment Upcoming Encounters Date Type Department Care Team (Late st Contact Info) Description 05/26/2024 1:30 PM BEADER TENDER Office Visit [facility] Ophthalmology [address] [facility] 2nd Floor, [address] [place] [address] Raphael Hernández MD [address] [facility] DEPT OPHTHALMOLOGY, [address] [place] [address] documented as of this encounter Procedures Procedure Name Priority Date/Time Associated Diagnosis Comments COPY(IES) SENT TO: Routine 07/30/2020 12 :00 AM BEADER TENDER H. PYLORI ANTIGEN, STOOL Routine 07/30/2020 12:00 AM BEADER TENDER Preoperative examination Weight gain following gastric bypass surgery COPY(IES) SENT TO: Routine 07/23/2020 8: 11 AM BEADER TENDER IRON PROFILE W/ IBC Routine 07/23/2020 8 :11 AM BEADER TENDER Preoperative examination Weight gain following gastric bypass surgery CBC WITH AUTO DIFFERENTIAL Routine 07/23/2020 8:11 AM BEADER TENDER Preoperative examination Weight gain following gastric bypass surgery VITAMIN D 25 HYDROXY Routine 07/23/2020 8:11 AM BEADER TENDER Preoperative examination Weight gain following gastric bypass surgery PROTIME-INR Routine 07/23/2020 8:11 AM BEADER TENDER Preoperative examination Weight gain following gastric bypass surgery TSH Routine 07/23/2020 8:11 AM BEADER TENDER Preoperative examination Weight gain following gastric bypass surgery HEMOGLOBIN A1C Routine 07/23/2020 8:11 AM BEADER TENDER Preoperative examination Weight gain following gastric bypass surgery VITAMIN B12 Routine 07/23/2020 8:11 AM BEADER TENDER Preoperative examination Weight gain following gastric bypass surgery LIPID PANEL Routine 07/23/2020 8:11 AM BEADER TENDER Preoperative examination Weight gain following gastric bypass surgery COMPREHENSIVE METABOLIC PANEL Routine 07/23/2020 8:11 AM BEADER TENDER Preoperative examination Weight gain following gastric bypass surgery documented in this encounter Results * COPY(IES) SENT TO: (07/30/2020 12:00 AM BEADER TENDER) COPY(IES) SENT TO: MARIA ELENA Comment: ?[facility] ?[address] ?[place] [address] ?[facility] ?COPY TO ACCOUNT ?[id number] ?[place] [address] 07/30/2020 07/30/2020 10: 26 AM BEADER TENDER Narrative [facility] - 08/02/2020 2:37 PM BEADER TENDER SPLIT 07/23/2020 FROM [id number] us Sharon De Paz POWER LINE LINEMAN LAB BLOOD ORDERABLES Final Result [facility] * H. pylori antigen, stool Stool (07/30/2020 12:00 AM BEADER TENDER) H. pylori Ag, stool Maria Elena Fulton Comment: ??HELICOBACTER PYLORI AG, EIA, STOOL ?Micro Number: ?[id number] ??Test Status: ? Final ??Specimen Source: ?? STOOL ??Specimen Quality: ??Adequate ??H.pylori Ag: ? Not Detected ? Antimicrobials, proton pump inhibitors, and ? bismuth preparations inhibit H. pylori and ? ingestion up to two weeks prior to testing may ? cause false negative results. If clinically ? indicated the test should be repeated on a new ? specimen obtained two weeks after discontinuing ? treatment. ??Reference Range: ?? Not Detected ?? Stool 07/30/2020 07/30/2020 10: 26 AM BEADER TENDER Narrative [facility] - 08/02/2020 2:37 PM BEADER TENDER SPLIT 07/23/2020 FROM [id number] Sharon De Paz POWER LINE LINEMAN LAB MICROBIOLOGY - GENERAL ORDERABLES Final Result [facility] [address] [place] [address] * COPY(IES) SENT TO: (07/23/2020 8:11 AM BEADER TENDER) COPY(IES) SENT TO: MARIA ELENA Comment: ?[facility] ?[address] ?[place] [address] ?[facility] ?COPY TO ACCOUNT ?[id number] ?[place] [address] 07/23/2020 8:11 AM BEADER TENDER 07/23/2020 8:12 AM BEADER TENDER Narrative [facility] - 07/24/2020 7:11 AM BEADER TENDER FASTING:YES COLLECTION KIT GIVEN TO PATIENT. PATIENT ADVISED TO RETURN. FASTING: YES Sharon De Paz NP LAB BLOOD ORDERABLES Final Result Performing Organization Address [facility] Co de Phone Number [facility] * Protime-INR (07/23/2020 8:11 AM BEADER TENDER) INR 0.9 [facility] Comment: Reference Range ? 0.9-1.1 Moderate-intensity Warfarin Therapy 2.0-3.0 Higher-intensity Warfarin Therapy ?? 3.0-4.0 PT 10.0 9.0 - 11.5 sec [facility] Comment: For additional information, please refer to http://education.WD[employer]/faq/PCP038 (This link is being provided for informational/ educational purposes only.) Blood specimen (specimen) 07/23/2020 8:11 AM BEADER TENDER 07/23/2020 8:12 AM BEADER TENDER Narrative [facility] - 07/24/2020 7:11 AM BEADER TENDER FASTING:YES COLLECTION KIT GIVEN TO PATIENT. PATIENT ADVISED TO RETURN. FASTING: YES Sharon De Paz NP LAB BLOOD ORDERABLES Final Result Performing Organization Address [facility] de Phone Number [facility] [address] [place] [address] * Vitamin D 25 hydroxy (07/23/2020 8:11 AM BEADER TENDER) Vitamin D 25-OH 42 30 - 100 ng/mL [facility] Comment: Vitamin D Status ? 25-OH Vitamin D: Deficiency: ?<20 ng/mL Insufficiency: ? 20 - 29 ng/mL Optimal: ? > or = 30 ng/mL For 25-OH Vitamin D testing on patients on D2-supplementation and patients for whom quantitation of D2 and D3 fractions is required, the [facility]ure[facility](TM) 25-OH VIT D, (D2,D3), LC/MS/MS is recommended: order code 59206 (patients >2yrs). See Note 1 Note 1 For additional information, please refer to http://education.[employer]inc[employer]/faq/ZAV384 (This link is being provided for informational/ educational purposes only.) Blood specimen (specimen) 07/23/2020 8:11 AM BEADER TENDER 07/23/2020 8:12 AM BEADER TENDER Narrative [facility] - 07/24/2020 7:11 AM BEADER TENDER FASTING:YES COLLECTION KIT GIVEN TO PATIENT. PATIENT ADVISED TO RETURN. FASTING: YES Sharon De Paz NP LAB BLOOD ORDERABLES Final Result Performing Organization Address [facility] Phone Number [facility] [address] [place] [address] * Vitamin B12 (07/23/2020 8:11 AM BEADER TENDER) [facility] Vitamin B12 226 200 - 1,100 pg/mL [facility] Comment: Please Note: Although the reference range for vitamin B12 is 200-1100 pg/mL, it has been reported that between 5 and 10% of patients with values between 200 and 400 pg/mL may experience neuropsychiatric and hematologic abnormalities due to occult B12 deficiency; less than 1% of patients with values above 400 pg/mL will have symptoms. Blood specimen (specimen) 07/23/2020 8:11 AM BEADER TENDER 07/23/2020 8:12 AM BEADER TENDER Narrative [facility] - 07/24/2020 7:11 AM BEADER TENDER FASTING:YES COLLECTION KIT GIVEN TO PATIENT. PATIENT ADVISED TO RETURN. FASTING: YES Sharon De Paz NP LAB BLOOD ORDERABLES Final Result Performing Organization Address [facility] de Phone Number [facility] [address] [place] [address] * TSH (07/23/2020 8:11 AM BEADER TENDER) [facility] TSH 3.14 0.40 - 4.50 mIU/L [facility] Blood specimen (specimen) 07/23/2020 8:11 AM BEADER TENDER 07/23/2020 8:12 AM BEADER TENDER Narrative [facility] - 07/24/2020 7:11 AM BEADER TENDER FASTING:YES COLLECTION KIT GIVEN TO PATIENT. PATIENT ADVISED TO RETURN. FASTING: YES us Sharon De Paz NP LAB BLOOD ORDERABLES Final Result MARIA ELENA [facility] [address] [place] [place] [address] * (ABNORMAL) Lipid panel (07/23/2020 8:11 AM BEADER TENDER) Cholesterol 239(H) <200 mg/dL [facility] HDL 65 > OR = 50 mg/dL [facility] Triglycerides 134 <150 mg/dL [facility] LDL 148(H) mg/dL (calc) [facility] Comment: Reference range: <100 Desirable range <100 mg/dL for primary prevention; ?? <70 mg/dL for patients with CHD or diabetic patients with > or = 2 CHD risk factors. LDL-C is now calculated using the Shayne-River calculation, which is a validated novel method providing better accuracy than the Friedewald equation in the estimation of LDL-C. Shayne BAUM et al. DAVID. 2013;310(19): 3608-4900 (http://education.Krauttools.Micron Technology/faq/GWR704) Chol/HDL ratio 3.7 <5.0 (calc) [facility] Non-HDL, (LDL+VLDL) 174(H) <130 mg/dL (calc) [facility] Comment: For patients with diabetes plus 1 major ASCVD risk factor, treating to a non-HDL-C goal of <100 mg/dL (LDL-C of <70 mg/dL) is considered a therapeutic option. Blood specimen (specimen) 07/23/2020 8:11 AM BEADER TENDER 07/23/2020 8:12 AM BEADER TENDER Narrative [facility] - 07/24/2020 7:11 AM BEADER TENDER FASTING:YES COLLECTION KIT GIVEN TO PATIENT. PATIENT ADVISED TO RETURN. FASTING: YES Sharon De Paz NP LAB BLOOD ORDERABLES Final Result Performing Organization Address [facility] de Phone Number MARIA ELENA [facility] [address] [place] [address] * Iron profile w/ IBC (07/23/2020 8:11 AM BEADER TENDER) Pathologist [facility] Iron 136 45 - 160 mcg/dL [facility] TIBC 374 250 - 450 mcg/dL (calc) [facility] Iron saturation 36 16 - 45 % (calc) [facility] Blood specimen (specimen) 07/23/2020 8:11 AM BEADER TENDER 07/23/2020 8:12 AM BEADER TENDER Narrative [facility] - 07/24/2020 7:11 AM BEADER TENDER FASTING:YES COLLECTION KIT GIVEN TO PATIENT. PATIENT ADVISED TO RETURN. FASTING: YES Sharon De Paz NP LAB BLOOD ORDERABLES Final Result Performing Organization Address [facility] de Phone Number MARIA ELENA [facility] [address] [place] [address] * Hemoglobin A1c (07/23/2020 8:11 AM BEADER TENDER) [facility] Hgb A1C 5.4 <5.7 % of total Hgb [facility] Comment: For the purpose of screening for the presence of diabetes: <5.7% ? Consistent with the absence of diabetes 5.7-6.4% ?Consistent with increased risk for diabetes ?(prediabetes) > or =6.5% ??Consistent with diabetes This assay result is consistent with a decreased risk of diabetes. Currently, no consensus exists regarding use of hemoglobin A1c for diagnosis of diabetes in children. According to [place] Diabetes Association (ADA) guidelines, hemoglobin A1c <7.0% represents optimal control in non- diabetic patients. Different metrics may apply to specific patient populations. Standards of Medical Care in Diabetes(ADA). ?? Blood specimen (specimen) 07/23/2020 8:11 AM BEADER TENDER 07/23/2020 8:12 AM BEADER TENDER Narrative [facility] - 07/24/2020 7:11 AM BEADER TENDER FASTING:YES COLLECTION KIT GIVEN TO PATIENT. PATIENT ADVISED TO RETURN. FASTING: YES us Sharon De Paz POWER LINE LINEMAN LAB BLOOD ORDERABLES Final Result [facility] [address] [address] * (ABNORMAL) Comprehensive metabolic panel (07/23/2020 8:11 AM BEADER TENDER) Pathologist [facility] Glucose 96 65 - 99 mg/dL [facility] Comment: ? Fasting reference interval BUN 17 7 - 25 mg/dL [facility] Creatinine 1.11(H) 0.50 - 1.05 mg/dL [facility] Comment: For patients >49 years of age, the reference limit for Creatinine is approximately 13% higher for people identified as -Spanish. eGFR NON-AFR. [place] 55(L) > OR = 60 mL/min/1. 73m2 [facility] EGFR 63 > OR = 60 mL/min/1. 73m2 [facility] BUN/creat ratio 15 6 - 22 (calc) [facility] Sodium 142 135 - 146 mmol/L [facility] Potassium, pl 4.5 3.5 - 5.3 mmol/L [facility] Chloride 105 98 - 110 mmol/L [facility] CO2 29 20 - 32 mmol/L [facility] Calcium 9.3 8.6 - 10.4 mg/dL [facility] Protein, sr 6.4 6.1 - 8.1 g/dL [facility] Albumin 4.1 3.6 - 5.1 g/dL [facility] GLOBULIN 2.3 1.9 - 3.7 g/dL (calc) [facility] Alb/glob ratio 1.8 1.0 - 2.5 (calc) [facility] Bilirubin, total 0.7 0.2 - 1.2 mg/dL [facility] Alk phos 116 37 - 153 U/L [facility] AST 15 10 - 35 U/L [facility] ALT (SGPT) 11 6 - 29 U/L [facility] Blood specimen (specimen) 07/23/2020 8:11 AM BEADER TENDER 07/23/2020 8:12 AM BEADER TENDER Narrative [facility] - 07/24/2020 7:11 AM BEADER TENDER FASTING:YES COLLECTION KIT GIVEN TO PATIENT. PATIENT ADVISED TO RETURN. FASTING: YES us Sharon De Paz NP LAB BLOOD ORDERABLES Final Result [facility] [address] [place] [address] * CBC with auto differential (07/23/2020 8:11 AM BEADER TENDER) WBC 4.2 3.8 - 10.8 Thousand/u L [facility] RBC, POC 4.46 3.80 - 5.10 Million/uL [facility] Hgb 14.1 11.7 - 15.5 g/dL [facility] Hct 43.6 35.0 - 45.0 % [facility] MCV 97.8 80.0 - 100.0 fL [facility] MCH 31.6 27.0 - 33.0 pg [facility] MCHC 32.3 32.0 - 36.0 g/dL [facility] Rdw 12.4 11.0 - 15.0 % [facility] Platelets 242 140 - 400 Thousand/u L [facility] MPV 10.0 7.5 - 12.5 fL [facility] Neutrophils, abs 2,398 1,500 - 7,800 cells/uL [facility] Lymphocytes, abs 1,058 850 - 3,900 cells/uL [facility] Monocyte abs 382 200 - 950 cells/uL [facility] Eosinophils, abs 302 15 - 500 cells/uL [facility] Basophils, abs 59 0 - 200 cells/uL [facility] Neutrophils 57.1 % [facility] Lymphocyte pct 25.2 % [facility] Monocytes 9.1 % [facility] Eosinophils 7.2 % [facility] Basophils 1.4 % [facility] Blood specimen (specimen) 07/23/2020 8:11 AM BEADER TENDER 07/23/2020 8:12 AM BEADER TENDER Narrative [facility] - 07/24/2020 7:11 AM BEADER TENDER FASTING:YES COLLECTION KIT GIVEN TO PATIENT. PATIENT ADVISED TO RETURN. FASTING: YES us Sharon De Paz NP LAB BLOOD ORDERABLES Final Result [facility] [address] [place] [address] documented in this encounter Visit Diagnoses Diagnosis Preoperative examination- Primary Unspecified pre-operative examination Weight gain following gastric bypass surgery documented in this encounter Care Teams Layout Worker Relationship Specialty Start Date End Date Ananth Mullen MD PCP - General Internal Medicine 04/21/20 documented as of this encounter
--- OUTSIDE RECORDS SUMMARY | 2024-05-24 10:50 | XMS_ITS | Encounter Summary ---
Author Organization [facility] Address [address] [place] [address] Phone Care Team Providers Care Rn Family Practice Name Role Phone Ananth Mullen MD Primary Care Provider [phone] Reason for Visit * Reason Onset Date Comments Pigment Pusher met with patient in exam room [address]. 11/19/2020 Pigment Pusher printed out paperwo rk from behavior coaching groups, which patient reported she didn't received in the mail. Encounter Details Date Type Department Care Team (Late st Contact Info) Description 11/19/2020 Documentation [facility] Gastroenterology [address] [place] [address] [address], DRAPERY SEAMSTRESS Pigment Pusher met with patient in exam room [address]. (Pigment Pusher printed out paperwork from behavior coaching groups, which patient reported she didn't received in the mail.) Social History Tobacco Use Types Packs/Day Years [...] on file Legal Sex Female 4:27 PM PATENT PROSECUTION ATTORNEY Gender Identity Not on file Sexual Orientation Not on file documented as of this encounter Progress Notes * Ledy Plaza, INFORMATION TECHNOLOGY SECURITY ANALYST - 11/19/2020 4:01 PM CDT 11/22/20 Pigment Pusher met with patient in exam room [address] Pigment Pusher walked patient to exit desk, and asked patient to wait 5 minutes, while research subject printed out paperwork from behavior coaching groups, which patient reported she didn't received in the mail. Pigment Pusher had sent via [place] Mail, by dropping off envelope with handouts and e-mail inside, at the [place] post office on [address]. The envelope had a pre-stamped metered mail postage paid stamp. Patiient thanked research subject and left clinic. Behavior Coaching handouts provided to patient: ?? EMOTIONS AND YOU ?? FOUR FACETS OF FITNESS ?? SLIPPERY SLOPE OF LIFESTYLE CHANGE ?? BODY MEASUREMENT WORKSHEETS ?? DECIDE WHAT YOU WANT TO DO ABOUT ALCOHOL ?? ENVIRONMENTAL CUES: WORKING WITH WHATS AROUND YOU ?? FRUIT INFUSED WATER RECIPES ?? LIST OF UPCOMING BEHAVIOR COACHING GROUPS 10/2020 - 10/2021 documented in this encounter Plan of Treatment Upcoming Encounters Date Type Department Care Team (Late st Contact Info) Description 05/26/2024 1:30 PM PATENT PROSECUTION ATTORNEY Office Visit [facility] Ophthalmology [address] 2nd Floor, [address] [place] [address] Raphael Hernández MD [address] [facility] DEPT OPHTHALMOLOGY, [address] [place] [address] documented as of this encounter Visit Diagnoses Not on filedocumented in this encounter Care Teams Rn Family Practice Relationship Specialty Start Date End Date Ananth Mullen MD PCP - General Internal Medicine 04/21/20 documented as of this encounter
--- OUTSIDE RECORDS SUMMARY | 2024-05-24 10:50 | XMS_ITS | Encounter Summary ---
Author Organization [facility] Address [address] [place] [address] Phone Care Team Providers Care Glass Furnace Operator Name Role Phone Ananth Mullen MD Primary Care Provider [phone] Encounter Details Date Type Department Care Team (Late st Contact Info) Description 11/19/2020 1:00 PM CDT Office Visit [facility] Gastroenterology [address] [facility] [address] [place] [address] Srinath Frausto MD [address] [place], [place] [id number] Post-operative state (Primary Dx); Weight gain following gastric bypass surgery; Class 3 severe obesity due to excess calories with serious comorbidity and body mass index (BMI) of 45.0 to 49.9 in adult (CMS/HCC) Social History Tobacco Use Types Packs/Day Years [...] on file Legal Sex Female 4:27 PM MASTER BREWER Gender Identity Not on file Sexual Orientation Not on file documented as of this encounter Last Filed Vital Signs Vital Sign Reading Time Taken Comments Blood Pressure 118/82 11/19/2020 12:58 PM CDT Pulse 79 11/19/2020 12:58 PM CDT Temperature 36.7 ??C (98.1 ??F) 11/19/2020 1 2:58 PM CDT Respiratory Rate - - Oxygen Saturation - - Inhaled Oxygen Concentration - - Weight 112.7 kg (248 lb 6.4 oz) 021 12:58 PM CDT Height 157.5 cm (5' 2 ) 11/19/2020 12:5 8 PM CDT Body Mass Index 45.43 11/19/2020 12:58 PM CDT documented in this encounter Progress Notes * Sharon De Paz, CASS - 11/19/2020 1:00 PM CDT [facility] DEPART[facility] OF INTERNAL MEDICINE DIVISION OF GASTROENTEROLOGY BARIATRIC ENDOSCOPY Clinic [facility] [address], [place] [address] Mailing Address: [address] [place] [address] Bariatric Endoscopy Clinic Return Visit (this patient was seen in conjunction with ) NAME: Cate Gauthier : 1960 DOS: 11/19/2020 Cate Gauthier 60 y.o. female Presents today for week 12 follow up of her endoscopic revision on 08/27/[address] Frausto. Starting weight: 274lbs Today She weighs 248lbs (244lbs at home) Post procedure She had no issues. Today She is doing very well and She is tolerating regular diet. She denies abdominal pain, no GERD, no nausea/vomiting. Patient is currently walking and gardening for exercise. The patient has the following conditions: STEVE:no GERD:yes Hypertension:no Hyperlipidemia:yes Diabetes:no Physical Exam Constitutional: Appearance: Normal appearance. Cardiovascular: Rate and Rhythm: Normal rate and regular rhythm. Pulmonary: Effort: Pulmonary effort is normal. Breath sounds: Normal breath sounds. Abdominal: General: Abdomen is flat. Bowel sounds are normal. Palpations: Abdomen is soft. Skin: General: Skin is warm and dry. Neurological: Mental Status: She is alert and oriented to person, place, and time. Psychiatric: Mood and Affect: Mood normal. Behavior: Behavior normal. Thought Content: Thought content normal. Judgment: Judgment normal. Vitals: 11/19/20 1258 BP: 118/82 Pulse: 79 Temp: 36.7 ??C (98.1 ??F) Weight: 112.7 kg (248 lb 6.4 oz) Height: 157.5 cm (5' 2 ) Assessment/Plan: September Abrahan 60 y.o. female Presents today for week 12 follow up of her endoscopic revision on 08/27/[address] Frausto. Starting weight: 274lbs Today She weighs 248lbs (244lbs at home) She has been doing very well, despite some setbacks dealing with her brothers unexpected passing. -continue to take PPI prn as this works for her for her rare heartburn. -Follow up with RD prn, log meals and follow RD recommendation for max daily calories. -Attend month behavior groups. -Continue exercise regimen. -ROV in 3 months with 6 month labs. Diagnoses and all orders for this visit: Post-operative state (Primary) Weight gain following gastric bypass surgery Class 3 severe obesity due to excess calories with serious comorbidity and body mass index (BMI) of45.0 to 49.9 in adult (CMS/[facility]) Cosigned by Srinath Frausto MD at 11/22/2020 11:28 AM CDT Associated attestation - Srinath Frausto MD - 11/22/2020 11:28 AM CDT I have seen and examined the patient. I agree with the findings and plan of care as documented in the GEAR TESTER's note. My total encounter time on 11/19/2020 was 20 minutes which was spent in the activitiesdocumented in the note. This includes time spent prior to the visit and after the visit in direct care of the patient. This time does not include time spent in any separately reportable services. documented in this encounter Plan of Treatment Upcoming Encounters Date Type Department Care Team (Late st Contact Info) Description 05/26/2024 1:30 PM MASTER BREWER Office Visit [facility] Ophthalmology [address] 2nd Floor, [address] [place] [address] Raphael Hernández MD [address] DEPT OPHTHALMOLOGY, [address] [place] [address] documented as of this encounter Visit Diagnoses Diagnosis Post-operative state- Primary Other postprocedural status Weight gain following gastric bypass surgery Class 3 severe obesity due to excess calories with serious comorbidity and body mass index (BMI) of 45.0 to 49.9 in adult (HCC) documented in this encounter Care Teams Glass Furnace Operator Relationship Specialty Start Date End Date Ananth Mullen MD PCP - General Internal Medicine 04/21/20 documented as of this encounter
--- OUTSIDE RECORDS SUMMARY | 2024-05-24 10:50 | XMS_ITS | Encounter Summary ---
Author Organization [facility] Healthcare Address [address] [place] [address] Care Team Providers Care Concert Manager Name Role Phone Ananth Mullen MD Primary Care Provider [phone] Encounter Details Date Type Department Care Team (Latest Contact Info) Description 05/31/2020 7:58 AM COMMERCIAL REAL ESTATE LENDER - 05/31/2020 10:13 AM COMMERCIAL REAL ESTATE LENDER Hospital Encounter [facility] Endoscopy [address] [place] [facility] [place] [address] Srinath Frausto MD [address] [place], [place] [id number] Discharge Disposition: Discharge to home or self [...] on file Legal Sex Female 4:27 PM COMMERCIAL REAL ESTATE LENDER Gender Identity Not on file Sexual Orientation Not on file documented as of this encounter Last Filed Vital Signs Vital Sign Reading Time Taken Comments Blood Pressure 113/69 05/31/2020 9:40 AM COMMERCIAL REAL ESTATE LENDER Pulse 70 05/31/2020 9:40 AM COMMERCIAL REAL ESTATE LENDER Temperature 36.3 ??C (97.3 ??F) 05/31/2020 9:31 AM CS T Respiratory Rate 13 05/31/2020 9:40 AM COMMERCIAL REAL ESTATE LENDER Oxygen Saturation 96% 05/31/2020 9:40 AM COMMERCIAL REAL ESTATE LENDER Inhaled Oxygen Concentration - - Weight 122.5 kg (270 lb) 05/31/2020 8:40 AM COMMERCIAL REAL ESTATE LENDER Height 157.5 cm (5' 2 ) 05/31/2020 8:40 AM COMMERCIAL REAL ESTATE LENDER Body Mass Index 49.38 05/31/2020 8:40 AM COMMERCIAL REAL ESTATE LENDER documented in this encounter Discharge Diagnoses Diagnosis Bariatric surgery status - BARIATRIC SURGERY STATUS Hyperlipidemia, unspecified - HYPERLIPIDEMIA, UNSPECIFIED Other intermediate accountant (current) drug therapy - OTHER SENIOR CARE (CURRENT) DRUG THERAPY 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 discussed findings. Discharge instructions given to patient, (and by phone - directed to leaf size picker location).Understanding expressed, questions answered.(No signatures due [...] physical therapy, we are available to assist: [facility] STAR: [facility] [place] [facility] [phone] [phone] [facility] [phone] How are some things that you can [...] given by your doctor or other health child care worker. ERCIAL REAL ESTATE LENDER documented in this encounter Medications at Time [...] Female Attending MD: Srinath Frausto M.D. Room: [facility] ENDOSCOPY ROOM 04 Note Status: Finalized Procedure: Upper GI endoscopy Indications: Assessment following Lisha-en-Y gastrojejunostomy Providers: Srinath Frausto M.D. Referring MD: Ananth Mullen M.D., Sharon De Paz F.N.Lexi Medicines: Monitored Anesthesia Care Complications: No immediate complications. Estimated Blood Loss: Estimated blood loss: none. Procedure: Pre-Anesthesia Assessment: - Immediately prior to administration of medications, the patient was re-assessed for adequacy to receive sedatives. After obtaining informed consent, the endoscope was passed under direct vision. Throughout the procedure, the patient's blood pressure, pulse, and oxygen saturations were monitored continuously. The [id number] was introduced through the mouth, and advanced [...] 0 Note Initiated On: 05/31/2020 9:19 AM ERCIAL REAL ESTATE LENDER documented in this encounter Miscellaneous Notes * Pre-Procedure Instructions - Diamond Gutierrez RN - 05/27/2020 9:42 AM COMMERCIAL REAL ESTATE LENDER Typically for this procedure we say do not eat or drink after midnight, but please follow any instruction the office has given you. Come to [facility] main entrance. There is free golf course keeper parking at this entrance or there is [...] safety and the safety of others per [facility] guidelines you are allowed one [...] patience and understanding. My number here is [phone] ERCIAL REAL ESTATE LENDER documented in this encounter Plan of Treatment Upcoming Encounters Date Type Department Care Team (Late st Contact Info) Description 05/26/2024 1:30 PM COMMERCIAL REAL ESTATE LENDER Office Visit [facility] Ophthalmology [address], [address] [place] [address] Raphael Hernández MD [address] [facility] DEPT OPHTHALMOLOGY, [address] [place], [place] [id number] documented as of this encounter Procedures Procedure Name Priority Date/Time Associated Diagnosis Comments EGD 05/31/2020 9:19 AM COMMERCIAL REAL ESTATE LENDER ESOPHAGOGASTRODUODENOSCOPY 05/31 9:14 AM COMMERCIAL REAL ESTATE LENDER Heartburn Weight gain following gastric bypass surgery Preoperative examination documented in this encounter Results * EGD (05/31/2020 9:19 AM COMMERCIAL REAL ESTATE LENDER) Anatomical Region Laterality Modality Other Narrative Procedure Note Srinath Frausto MD - 05/31/2020 9:19 AM CST ENDOSCOPY LAB Patient Name: September Abrahan Procedure Date: 05/31/2020 9:19 AM Date of : 1960 Admit Type: Outpatient Age: 60 Gender: Female Attending MD: Srinath Frausto M.D. Room: [facility] ENDOSCOPY ROOM 04 Note Status: Finalized Procedure: [...] and oxygen saturations were monitored continuously. The [id number] was introduced through the mouth, and advanced [...] 0 Note Initiated On: 05/31/2020 9:19 AM Srinath Frausto MD ENDOSCOPY PROCEDUR ES Final [...] Pre-Procedure (GI) Rate/Dose Verify 05/31/2020 9:20 AM COMMERCIAL REAL ESTATE LENDER New Bag 05/31/2020 9:19 AM COMMERCIAL REAL ESTATE LENDER New Bag 05/31/2020 9:00 AM COMMERCIAL REAL ESTATE LENDER 30 mL/hr 30 mL/hr documented in this encounter Active and Recently Administered Medications Times are shown in COMMERCIAL REAL ESTATE LENDER. Continuous Medication Order 05/29/2020 05/30/2020 05/31/2020 sodium chloride 0.9% infusion 30 mL/hr, intravenous, Continuous, Starting on Sun05/31/20 at 0915, Pre-Procedure (GI) 0900 (New Bag - Prov ider: Octaviano Beatty RN)0919 (New Bag - Provider: Jaciel Ramirez CRNA)0920 (Rate/Dose Verify - Provider: Jaciel Ramirez CRNA)0930 (Anesthesia Volume Adjustment - Provider: Jaciel Ramirez CRNA)0955 (Stopped - Provider: Sary Adam, FLOYD) PRN Medication Order 05/29/2020 05/30/2020 05/31/2020 sodium chloride 0.9% flush 0.5-20 mL 0.5-20 mL, intra-catheter, As needed, line care, Starting on 05/31/20 at 0836, Pre-Procedure (GI), Flush volume based [...] 05/05 documented in this encounter Care Teams Concert Manager Relationship Specialty Start Date End Date Ananth Mullen MD PCP - General Internal Medicine 04/21/20 documented as of this encounter
--- OUTSIDE RECORDS SUMMARY | 2024-05-24 10:50 | XMS_ITS | Encounter Summary ---
Author Organization [facility] Address [address] [place] [address] Phone Care Team Providers Care Cdl Company Driver Name Role Phone Ananth Mullen MD Primary Care Provider [phone] Encounter Details Date Type Department Care Team (Late Contact Info) Description 04/13/2020 Orders Only [facility] Scanning, Provider Social History Tobacco Use Types Packs/Day Years Used Date Smoking Tobacco: Never Assessed Comments Unknown Sex and Gender Information Value Date Recorded Sex Assigned at Not on file Legal Sex Female 4:27 PM INK GRINDER Gender Identity Not on file Sexual Orientation Not on file documented as of this encounter Plan of Treatment Upcoming Encounters Date Type Department Care Team (Late Contact Info) Description 05/26/2024 1:30 PM INK GRINDER Office Visit [facility] Ophthalmology [address] Floor, [address] [place] [address] Raphael Hernández MD [address] [facility] DEPT OPHTHALMOLOGY, [address] [place], [place] [id number] documented as of this encounter Procedures Procedure Name Priority Date/Time Associated Diagnosis Comments GI - RESULT 04/13/2020 documented in this encounter Results * GI - RESULT (04/13/2020) Anatomical Region Laterality Modality Other us Provider Scanning Final Result documented in this encounter Visit Diagnoses Not on filedocumented in this encounter Care Teams Cdl Company Driver Relationship Specialty Start Date End Date Ananth Mullen MD PCP - General Internal Medicine 04/21/20 documented as of this encounter
--- OUTSIDE RECORDS SUMMARY | 2024-05-24 10:50 | XMS_ITS | Encounter Summary ---
Author Organization [facility] Address [address] [place] [address] Phone Care Team Providers Care Acute Care Occupational Therapist Name Role Phone Ananth Mullen MD Primary Care Provider [phone] Reason for Visit * Reason Onset Date Comments Patient e-mailed with inquir y about who to make pre-payments 07/30/2020 Crime Laboratory Analyst had previously sent patient Next Steps including who and how to pre-pay all fees related to facility and to Physicians. Crime Laboratory Analyst Responded by including only the payment details with phone numbers, via e-mail to patient via UNENCRYPTED E-MAIL response. Patient confirmed received message, and will get it done. Encounter Details Date Type Department Care Team (Late st Contact Info) Description 07/30/2020 Documentation [facility] Gastroenterology [address] [place] [address] Ledy Plaza, NEEDLE POLISHER Patient e-mailed with inquiry about who to make pre-payments (Crime Laboratory Analyst had previously sent patient Next Steps including who and how to pre-pay all fees related to facility and to Physicians. Crime Laboratory Analyst Responded by including only the payment details with phone numbers, via e-mail to patient via UNENCRYPTED E-MAIL response. Patient confirmed received message, and will get it done. ) Social History Tobacco Use Types Packs/Day Years [...] on file Legal Sex Female 4:27 PM ASSISTANT COMMUNITY DIRECTOR Gender Identity Not on file Sexual Orientation Not on file documented as of this encounter Progress Notes * Ledy Plaza, NANOTECHNOLOGY TECHNICIAN - 07/30/2020 12:12 PM CST 07/30/20 Patient e-mailed with inquiry about who to make pre-payments. Crime Laboratory Analyst had previously sent patient Next Steps including who and how to pre-pay all fees related to facility and to [facility]. Crime Laboratory Analyst Responded by including only the payment details with phone numbers, via e-mail to patient via UNENCRYPTED E- MAIL response. Patient confirmed received message, and will get it done. From: September < > Sent: Thursday, July 30, 2020 12:15 PM To: Ledy Plaza < > Subject: Re: few questions * External Email - Caution * Thank you, Will get it done. September From: Ledy Plaza Sent: Thursday, July 30, 2020 12:12 PM To: September Abrahan < > Subject: RE: few questions [facility] Physicians Patient billing services team (aka [facility] team [phone] )is who you will make pre-payment of $616 & $4444.totaling $5,060 pre-payment for physicians services related to your endoscopic procedure. You make arrangements to make remaining facility payment plan after making 20% deposit to [facility] ([facility]), when you call Emma Acosta. To make Facility pre-payment, either call: ??? Emma Acosta via [phone], Mon.-Fri. 8am - 3pm or Fernando Garcia via [phone], Mon.-Fri.7am-1:30pm o Patient will make a Facility pre-payment in the amount of 20% of total facility fees. 20% =$1,460no later than 08/13/20 to [facility]. At same time of patient calling in pre-payment deposit, patient will arrange the consecutive monthly payment details, for post-procedure, monthly consecutive payments to [facility] (re: to complete the remaining $5,840 balance.) Patient is to prepay 20% to facility, and then pay monthly consecutive remaining fees as part of [facility] payment plan-post procedure. ??? Patient will call [facility] Patient Billing Services, at first convenience to make pre-payment for below fees: o Patient Billing Services team will accept a phone payment of $5,060, by patient making payment to: [phone] - Patient will pre-pay Anesthesiology [facility]icians $616. Pre-procedure - Patent will pre-pay Gastroenterology Physicians $4444 fees Pre-procedure Patient initialed and signed preference for UNENCRYPTED E-MAIL communications per [facility] E-mail Authorization form signed and dated 04-13-20. From: September < > Sent: Sunday, July 30, 2020 11:42 AM To: Ledy Plaza < > Subject: few questions * External Email - Caution * Ledy, I am wanting to get my payments made. You gave me names and phone numbers. I made my $1,460 with Emma Acosta today. (We share the same birthday.) I cannot find the phone numbers to pre-pay $616 or $4444. I called the billing services to set up my payment plan of $5060, but had to leave a message for them to return my call. I looked back through your emails and paperwork to see if I missed those phone numbers or contacts to pay. Would you please help me know who to connect to to make those 2 pre-payments? Thank you, September STANT COMMUNITY DIRECTOR documented in this encounter Plan of Treatment Upcoming Encounters Date Type Department Care Team (Late st Contact Info) Description 05/26/2024 1:30 PM ASSISTANT COMMUNITY DIRECTOR Office Visit [facility] Ophthalmology [address], [address] [place] [address] Raphael Hernández MD [address] [facility] DEPT OPHTHALMOLOGY, [address] [place] [address] documented as of this encounter Visit Diagnoses Not on filedocumented in this encounter Care Teams Acute Care Occupational Therapist Relationship Specialty Start Date End Date Ananth Mullen MD PCP - General Internal Medicine 04/21/20 documented as of this encounter
--- OUTSIDE RECORDS SUMMARY | 2024-05-24 10:50 | XMS_ITS | Encounter Summary ---
Author Organization [facility] Healthcare Address [address] [place] [address] Care Team Providers Care Quarry Plant Crusher Operator Name Role Phone Ananth Mullen MD Primary Care Provider [phone] Encounter Details Date Type Department Care Team (Late Contact Info) Description 08/24/2020 2:45 PM CDT Lab [facility] [address] [phone] Preop testing Social History Tobacco Use Types Packs/Day Years [...] on file Legal Sex Female 4:27 PM ORIGINATION SPECIALIST Gender Identity Not on file Sexual Orientation Not on file documented as of this encounter Plan of Treatment Upcoming Encounters Date Type Department Care Team (Late Contact Info) Description 05/26/2024 1:30 PM ORIGINATION SPECIALIST Office Visit [facility] Ophthalmology [address] [facility] [address], [address] [place] [phone] Raphael Hernández MD [address] [facility] [address] OPHTHALMOLOGY, [address] [place], [place] [phone] documented as of this encounter Procedures Procedure Name Priority Date/Time Associated Diagnosis Comments COVID-19 CORONAVIRUS RNA Routine 08/24/2020 2:41 PM CDT Preop testing documented in this encounter Results * COVID-19 Coronavirus RNA [...] and NAAT . ??Testing performed by the [facility] Molecular Infectious Disease Laboratory. The 2019Novel Coronavirus Assay (COVID-19)Real Time RT-PCR assay is [...] Unknown CERNER BJWCH Comment:Testing performed by : [facility], [address] [place]., [address] Employeed in healthcare? Unknown CERNER B[facility]WCH Comment:Testing performed by : [facility], [address] [place] [address]., [address] status? No CERNER BJWCH Comment:Testing performed by : [facility], [address] [place]., [address] Group care resident? No CERNER BJWCH Comment:Testing performed by : [facility], [address] [place] [address]., [address] Hospitalized? Unknown CERNER BJWCH Comment:Testing performed by : [facility], [address] [place]., [address] Is patient in ICU? Unknown YAIMA DOMINIQUE Comment:Testing performed by : [facility], [address] [place]., [address] Symptomatic as defined by CDC? No YAIMA DOMINIQUE Comment:Testing performed by : [facility], [address] [place]., [address] Nasopharyngeal 08/24/2020 2: 41 PM CDT 08/24/2020 8:41 PM CDT Narrative YAIMA DOMINIQUE - 08/25/2020 5:04 AM CDT What is the reason for testing?->Screening prior to scheduled procedure or surgery Srinath Frausto MD LAB MICROBIOLOGY - GENERAL ORDERABLES Final Result [facility]AIMA [facility] [place] [address] [facility] Department [place] [address] documented in this encounter Visit Diagnoses Diagnosis Preop testing Unspecified pre-operative examination documented in this encounter Care Teams Quarry Plant Crusher Operator Relationship Specialty Start Date End Date Ananth Mullen MD PCP - General Internal Medicine 04/21/20 documented as of this encounter
--- OUTSIDE RECORDS SUMMARY | 2024-05-24 10:50 | XMS_ITS | Encounter Summary ---
Author Organization [facility] Address [address] [place] [address] Phone Care Team Providers Care Teen Counselor Name Role Phone Ananth Mullen MD Primary Care Provider [phone] Reason for Visit * Reason Onset Date Comments Endoscopic Revision pt education 08/11/2020 Encounter Details Date Type Department Care Team (Late st Contact Info) Description 08/11/2020 Telephone [facility] Gastroenterology [address] [facility] Medical Office Building 2 [address] [place] [address] Sharon De Paz, CASS [address] [place], [place] [id number] Endoscopic Revision pt education Social History Tobacco Use Types Packs/Day Years [...] on file Legal Sex Female 4:27 PM MOLD STAMPER Gender Identity Not on file Sexual Orientation Not on file documented as of this encounter Ordered Prescriptions Prescription Sig Dispense Quantity Refills Last Filled Start Date End Date scopolamine 1 mg over 3 days patch 3 dayIndications:Preve ntion of Post-Operative Nausea and Vomiting Place 1 patch on the skin once for [address] behind ear, the night prior to your procedure. Leave in place for 72 hours (3 days) 1 patch 08/11/2020 1 ondansetron ODT (ZOFRAN-ODT) 8 mg disintegrating tabletIndications:Na usea and Vomiting Take 1 tablet (8 mg total) by mouth every 8 (eight) hours as needed for nausea or vomiting for up to 13 days Take for 4 days following proc 20 tablet 1 08/11/2020 1 omeprazole (PriLOSEC) 40 mg capsuleIndications:T reatment of Non-Bleeding Gastric Disorder Take 1 capsule (40 mg total) by mouth 2 (two) times a day before breakfast and dinner 60 capsule 2 08/11/2020 3 lidocaine viscous (XYLOCAINE) 2 % solutionIndications: Sore Throat Apply 5 mL to the mouth or throat 4 (four) times a day as needed (throat pain) for up to 5 days 100 mL 1 08/11/2020 1 hyoscyamine (LEVSIN) 0.125 mg SL tabletIndications:st omach spasm Take 1 tablet (0.125 mg total) by mouth every 4 (four) hours for 4 days 20 tablet 1 08/11/2020 1 cephalexin (KEFLEX) 500 mg capsuleIndications:P rophylaxis, Medical Take 1 capsule (500 mg total) by mouth 2 (two) times a day for 3 days Start the night after your procedure 6 capsule 08/11/2020 1 aprepitant (EMEND) 40 mg capsuleIndications:P revention of Post-Operative Nausea and Vomiting Take 1 capsule (40 mg total) by mouth once for 1 dose Take 3 hours prior to procedure 1 capsule 1 08/11/2020 1 documented in this encounter Miscellaneous Notes * Telephone Encounter - Sharon De Paz NP - 08/11/2020 8:56 AM MOLD STAMPER The following material was reviewed with the patient and she verbalized understanding, all questions were answered. Endoscopic Gastric Outlet Revision: Patient Education Handout A Brief Diet Review: -Eat light the day before the procedure -12midnight prior to procedure- NO FOOD OR DRINK -Day 1-2 (after procedure)- clear liquids 2 weeks of full liquids 2 weeks of pureed/blended 2 weeks of soft Medications: important, because we don't want you to vomit and pull out the new stitches. All meds will be called into you pharmacy. AVIOD NSAIDS (ibuprofen, Aleeve, Motrin, aspirin, etc.) 1 week before and 1 week after! Tylenol is ok. ?? 1 week before: ? Proton Pump Inhibitor (PPI) 40mg, twice a day, every day (30min prior to breakfast and dinner) and continue for 2-3 months. ?? Night before procedure: ?? Scopolamine patch place on soft area on neck, behind earlobe -leave on for 72 hours (nausea) ?? Morning of Procedure (~3 hours prior): ok to take with a sip of water ? PPI 40mg ? Emend (aprepitant) 40mg (1 pill) (for nausea) Revision: Arrive to registration 1 hour prior the procedure, you will get an IV and lots of fluids,see the , anesthesiologist and nurse construction flagger. The procedure will take 30-60mins, with general anesthesia and an IV antibiotic during the procedure. Recovery after the procedure is 2-4 hours, during this time the nurses will give you anti-nausea meds and pain meds if needed. You will not be allowed to drink for 2 hours, but you may swish and spit water. At the 2 hour horacio, the nurses will have you drink clears. You will receive an incentive spirometer and the nurses will complete teaching. As long as you are tolerating clear fluids and feel ???ok?? you will go home! Once home, please use your incentive spirometer 10x/hour for first few days to prevent fevers and pneumonia. AND Drink!Sips of fluids constantly to prevent dehydration and need for hospitalization. ?? After procedure: scheduled (while awake) ? Take Zofran (ondansetron) 8mg under tongue and continue every 8 hours for 4 days not only as needed! (for nausea) ? Take Levsin (hyoscyamine) 0.125mg under tongue, continue every 4 hours for 4 days not only as needed! (for stomach cramping) ? Keflex 500mg, twice a day for 3 days starting 12 hours after the procedure (antibiotic) Unscheduled Medications, only as needed. ? Magic mouth wash (lidocaine and Maalox) 1 tsp swallow 4 times a day as needed (throat pain) ? Ativan 0.5mg (lorazepam) 1 tab by mouth every 12 hours as needed (for nausea)*recommended to takethe first night after placement. ? Take oxycodone 5mg by mouth every 6 hours only as needed (for pain) (*Requires paper Rx, will be given to you on the day of your procedure) Ok to take Tylenol too. Ok to take Miralax (OTC) for constipation Contact info -please call Sharon De Paz NP at [phone]. For fastest communication, email [email or web address] -For urgent concerns after hours call [phone], ask for GI fellow aviation electronics technician and ask them to Call Dr. Frausto. STAMPER documented in this encounter Plan of Treatment Upcoming Encounters Date Type Department Care Team (Late st Contact Info) Description 05/26/2024 1:30 PM MOLD STAMPER Office Visit [facility] Ophthalmology [address] [facility] 2nd Floor, [address] [place] [address] Raphael Hernández MD [address] [facility] DEPT OPHTHALMOLOGY, [place] [address] [place] [phone] documented as of this encounter Visit Diagnoses Not on filedocumented in this encounter Historical Medications * This list may reflect changes made after this encounter. LORazepam (ATIVAN) 0.5 mg tablet Take 0.5 mg by mouth every 6 (six) hours as needed for nausea 08/27/2020 09/06/2020 added in this encounter Care Teams Teen Counselor Relationship Specialty Start Date End Date Ananth Mullen MD PCP - General Internal Medicine 04/21/20 documented as of this encounter
--- OUTSIDE RECORDS SUMMARY | 2024-05-24 10:50 | XMS_ITS | Encounter Summary ---
Author Organization [facility] Address [address] [place] [address] Phone Care Team Providers Care Rv Detailer Name Role Phone Ananth Mullen MD Primary Care Provider [phone] Reason for Visit * Reason Onset Date Comments Mammography Tech met with patient in exam #5 of #10 [facility] 04/23/2020 Mammography Tech reviewed Endoscopic Outlet Repair Financial Paperwork, and Next STeps for safter 05/31/[address] Frausto. Encounter Details Date Type Department Care Team (Late st Contact Info) Description 04/23/[address] [facility] Gastroenterology [address] [place] [address] Medical Office Building [address] [place] [address] Belen Plaza, MATH COACH Mammography Tech met with patient in exam #5 of #[address] [facility] [address] (Mammography Tech reviewed Endoscopic Outlet Repair Financial Paperwork, and Next STeps for safter 05/31/[address] Frausto. ) Social History Tobacco Use Types Packs/Day Years Used Date Smoking Tobacco: Never Comments Unknown Sex and Gender Information Value Date Recorded Sex Assigned at Not on file Legal Sex Female 4:27 PM CHOIR ACCOMPANIST Gender Identity Not on file Sexual Orientation Not on file documented as of this encounter Progress Notes * Belen Plaza, EXPERIENCE SPECIALIST - 04/23/2020 5:51 PM CST 04/23/20 Mammography Tech met with patient in exam #5 of #10 [facility] [address] clinic in [place] [id number]. Mammography Tech reviewed Endoscopic Outlet Repair Financial Paperwork, and Next Steps for tonter 05/31/[address] Frausto, if he deems patient appropriate for Endoscopic Outlet Repair Procedure. Patient is going to call her insurance and ask if she has bariatric coverage, and what is required to receive bariatric coverage, and farm reporter is submitting request to pre-certification steam fitter supervisor, to learn if patient has bariatric coverage. What Happens Next? To complete pre Endoscopic REVISION procedure: Bariatric Endoscopy Clinic [facility] in [place], Gastroenterology NEXT STEPS: Call & Complete: ??? Complete FASTING pre-procedure RE: LABS WERE ORDERED BY PROGRAM NURSE PRACTITIONER. Pre procedure labs/tests, ordered at your initial office visit by PHARMACOLOGY ASSOCIATE are Blood draw and H Pylori stool sample. Patient???s responsibility to bill to insurance, or pay out of pocket for these lab tests. ? ? #2 PHARMACOLOGY ASSOCIATE- Sharon / HEATHER Sosa -PLACED ORDER: Upper Endoscopy with Dr. Frausto date & time arrival to [facility] ([facility]). THIS VISIT IS PATIENT???S RESPONSIBILITY AND CAN EITHER BE BILLED TO PATIENT???S INSURANCE OR PAID BY PATIENT. REQUIRED COVID TESTING (within 42-72 hours of endoscopic revision procedure.) ??? #1 Patient call Registered Dietitian Business Director [phone] to schedule, and Complete Registered Dietitian Nutritional Evaluation visit (REQUIRED pre- procedure regardless of, if billing or not billing insurance) Complete & fax 5 page Nutritional Evaluation Patient Questionnaire, prior to Nutritional Evaluation visit with program Dietitian via [employer] (must occur prior to procedure) - billed to patient insurance, or patient???s responsibility SEE ATTACHED NUTRITIONAL EVALUATION FORMS. THIS VISIT IS PATIENT???S RESPONSIBILITY AND CAN EITHER BE BILLED TO PATIENT???S INSURANCE ORPAID BY PATIENT. ??? Psychiatric Evaluation with Dr. [place] or Dr. Lee-if billing insurance for revision procedure SEE ATTACHED REFERRAL FORM WITH CONTACT INFORMATION - PLEASE SIGN MEDICAL RECORD RELEASE AND RETURN TO BELEN. BELEN WILL send or call-in REFERRAL FOR patient to complete psychiatric evaluation. THIS VISIT IS PATIENT???S RESPONSIBILITY AND CAN EITHER BE BILLED TO PATIENT???S INSURANCE, OR PAID BY PATIENT. ??? Physical Therapy Evaluation -if billing insurance for revision procedure - CALL AND COMPLETE [facility] (Sports Therapy and Rehabilitation) - patient will call to schedule [phone] or Physical Therapy - patient will call to schedule [phone] VISIT IS PATIENT???S RESPONSIBI LITY AND CAN EITHER BE BILLED TO PATIENT???S INSURANCE, OR PAID BY PATIENT. o ALL referrals will be billed to patient???s insurance, and are patient???s responsibility, if patient???s insurance is not within provider???s network. STEPS FOR LATER (AFTER UPPER ENDOSCOPY COMPLETED.) ??? Secure Financing or determine if pre-paying discounted pricing or billing insurance. ??? Patient???s Insurance may require patient to complete 3 or 6 months of medically supervised diet and weight loss. Belen will review with patient, if patient is deemed candidate to have endoscopic procedure after Upper Endoscopy. (6 months = 7 visits with PCP, Bariatrician, or Dietitian.) ??? Sign and return both Physicians Personal Responsibility forms to bariatric endoscopy coordinator, Belen Plaza via Gastroenterology o Make sure you Indicate if you would like to bill insurance or not bill insurance on both forms ??? If not billing insurance, then Payment (2 parts) must make payment to Physicians prior to scheduling endoscopic procedure. o [facility] Facility payment is due - no later than 2 weeks prior to procedure ? ? Belen or Sharon will schedule patient into [facility] OR - & schedule pre- testing/CPAP & REQUIRED COVID TESTING (within 42-72 hours of endoscopic revision procedure.) ??? Complete CPAP ([facility] for Pre-operative Assessment and Planning) aka Pre- testing, once we have a procedure date and time scheduled (within 30 days of procedure.) will be billed to patient???s insurance, and are patient???s responsibility, if patient???s insurance is not within provider???s network. ??? Medication education completed with PHARMACOLOGY ASSOCIATE about anti-nausea medication schedule and sweet pickled fruit maker those prescriptions from your pharmacy. (some prescriptions start 1 week prior to procedure) ??? Create profile on [employer] upon receipt of invitation e-mail - Belen added you to [employer] dashboard ??? Schedule procedure and one week ROV; identify a day of week and time for all Return Office Visits. ??? Ask questions! All Medical Questions =PHARMACOLOGY ASSOCIATE-Sharon De Paz [phone]; ??? Ask questions! All peoplesoft programmer, financial, and behavioral Questions= Belen Plaza [phone] READINESS FOR CHANGE AND ABOVE NEXT STEPS HAVE BEEN REVIEWED & DISCUSSED. Sign here and return: Patient???s signature: Reviewed in clinic; Patient took form home, and will sign if moving forward.Date: 04/23/20 From: Belen Plaaz Sent: Thursday, April 23, 2020 6:04 PM To: Cherry Glover < > Cc: Sharon De Paz < Subject: bariatric coverage inquiry request Cherry, will you please check to see if this patient has bariatric coverage? I have also asked patient to call the number on the back of her card, to inquire with the same re: does her insurance plan have bariatric coverage indicated; and if so, what does she need to do to receive bariatric coverage. Patient thinks she has to complete 12 months of medically supervised nutritionally counseling visits at the very least. Member: ANGELA GAUTHIER [[id number]] Plan[place] [] Payor: [facility]* Coverage Information Coverage information: Subscriber: [id number] ANGELA GAUTHIER Rel to sub: 01 - Self Payor: -[facility] Benefit plan: [id number] ACCESS CHOICE [place] Group number: [id number] Member effective dates: from 12/03/19 Thank you very much, and Happy Thanksgiving! Sincerely, Belen Plaza, [place], EXPERIENCE SPECIALIST Bariatric Endoscopy Coordinator / Behavior Cold Type Composing Machine Operator Department of Internal Medicine Division of Gastroenterology [place] [address] Office R ACCOMPANIST documented in this encounter Plan of Treatment Upcoming Encounters Date Type Department Care Team (Late st Contact Info) Description 05/26/2024 1:30 PM CHOIR ACCOMPANIST Office Visit [facility] [address] [facility] 2nd Floor, [address] [place] [address] Raphael Hernández MD [address] [facility] [address] DEPT OPHTHALMOLOGY, [address] [place] [address] documented as of this encounter Visit Diagnoses Not on filedocumented in this encounter Care Teams Rv Detailer Relationship Specialty Start Date End Date Ananth Mullen MD PCP - General Internal Medicine 04/21/20 documented as of this encounter
--- OUTSIDE RECORDS SUMMARY | 2024-05-24 10:50 | XMS_ITS | Encounter Summary ---
Author Organization [facility] Address [address] [place] [address] Phone Care Team Providers Care Machine Stuffer Automatic Name Role Phone Ananth Mullen MD Primary Care Provider [phone] Encounter Details Date Type Department Care Team (Late st Contact Info) Description 09/06/2020 9:30 AM CDT Telemedicine [facility] Gastroenterology [address] [place] [address] Medical Office Building [address] [place] [address] Sharon De Paz NP [address] [place] [address] Post-operative state (Primary Dx); Weight gain following gastric bypass surgery Social History Tobacco Use Types Packs/Day Years [...] on file Legal Sex Female 4:27 PM AUDIT MANAGER Gender Identity Not on file Sexual Orientation Not on file documented as of this encounter Progress Notes * Sharon De Paz NP - 09/06/2020 9:30 AM CDT [facility] DEPARTMENT OF INTERNAL MEDICINE DIVISION OF GASTROENTEROLOGY BARIATRIC ENDOSCOPY Clinic Address: [address], [place] [address] Mailing Address: [address], [place] [address] Bariatric Endoscopy Clinic Return Visit (Verbal and written consent was obtained from the patient to render this teleheath visit) This was a telemedicine visit with the patient alone which took place via Real- time video connection ([employer], [employer] or similar). During the visit, I was located in the office xxx and the patient was located in the state of [place]. The patient visit started at 0934 and ended at XXX. Total encounter timewas 30minutes, which includes time spent today on pre charting, the patient encounter, and post charting. The patient: has been informed that the visit may not be secure and acknowledged the information. The option of participating in a telephone or video visit during the [facility] [address] emergencywas explained to them. After being given an opportunity to ask questions about and discuss this type of visit, they verbally consented to proceeding with the telephone/video visit and understand thatthis service replaces an office visit. MEAGHAN Hester NAME: Cate Gauthier : 1960 DOS: 09/06/2020 Cate Mariann Gauthier 60 y.o. female with obesity, xxx. Presents today for 1 week follow up of the endoscopic revision on 08/27/[address] Frausto. Starting weight: 270lbs Today She weighs 258lbs Post procedure She had no issues, no nausea, vomited once, but thinks it was phlemg, zero abd pain,no heartburn. Today She is doing very well, energy is back to normal and She is tolerating thin liquids (protein shakes, . PPI bid. She denies abdominal pain, no GERD, noheartburn, no nausea/vomiting. Patient is currently walking her dogs for exercises. Plans to ride her bike in the future. Logging her meals, and exercises in her bariatric surgery The patient has the following conditions: STEVE:no GERD:yes Hypertension:no Hyperlipidemia:yes Diabetes:no Physical Exam Pulmonary: Effort: Pulmonary effort is normal. Neurological: Mental Status: She is alert and oriented to person, place, and time. Psychiatric: Mood and Affect: Mood normal. Behavior: Behavior normal. Thought Content: Thought content normal. Judgment: Judgment normal. There were no vitals filed for this visit. Assessment/Plan: -continue to take PPI twice daily for 2 full months, then may taper down to once daily and off during 3rd month s/p ESG -Follow up with RD prn, log meals and follow RD recommendation for max daily calories. -continue full liquids 2 weeks, then 2 weeks of blended, then 2 weeks of soft, before starting a regular foods diet. -Attend month behavior groups. -Continue exercise regimen. -ROV on 09/27/2020 Diagnoses and all orders for this visit: Post-operative state (Primary) Weight gain following gastric bypass surgery documented in this encounter Plan of Treatment Upcoming Encounters Date Type Department Care Team (Late st Contact Info) Description 05/26/2024 1:30 PM AUDIT MANAGER Office Visit [facility] Ophthalmology [address] [facility] 2nd Floor, [address] [place] [address] Raphael Hernández MD [address] [facility] DEPT OPHTHALMOLOGY, [address] [place], [place] [id number] documented as of this encounter Visit Diagnoses Diagnosis Post-operative state- Primary Other postprocedural status Weight gain following gastric bypass surgery documented in this encounter Discontinued Medications Medication Sig Discontinue Reason Start Date End Da te oxyCODONE (ROXICODONE) 5 mg immediate release tabletIndications:Pain Take 1 tablet (5 mg total) by mouth every 6 (six) hours as needed for pain for up to 15 days 08/27/2020 09/06/2020 scopolamine 1 mg over 3 days patch [address] 1 patch on the skin once Pre-surgical 08/11/2020 09/06/2020 aprepitant (EMEND) 40 mg capsule Take 40 mg by mouth once Pre-surgical, take morning of surgery 09/06/2020 LORazepam (ATIVAN) 0.5 mg tablet Take 0.5 mg by mouth every 6 (six) hours as needed for nausea 08/27/2020 09/06/2020 documented as of this encounter Care Teams Machine Stuffer Automatic Relationship Specialty Start Date End Date Ananth Mullen MD PCP - General Internal Medicine 04/21/20 documented as of this encounter
--- OUTSIDE RECORDS SUMMARY | 2024-05-24 10:50 | XMS_ITS | Encounter Summary ---
Author Organization [facility] Address [address] [place] [address] Phone Care Team Providers Care Csm Consultant Name Role Phone Ananth Mullen MD Primary Care Provider [phone] Encounter Details Date Type Department Care Team (Late st Contact Info) Description 04/22/2020 Telephone [facility] [address] [place] [address] Medical Office Building [address] [place] [address] Ledy Plaza, FOUNDER PRESIDENT AND CEO Social History Tobacco Use Types Packs/Day Years Used Date Smoking Tobacco: Never Assessed Comments Unknown Sex and Gender Information Value Date Recorded Sex Assigned at Not on file Legal Sex Female 4:27 PM TOWN MANAGER Gender Identity Not on file Sexual Orientation Not on file documented as of this encounter Miscellaneous Notes * Telephone Encounter - Ledy Plaza, CYLINDER INSPECTOR AND TESTER - 04/22/2020 11:10 AM TOWN MANAGER 04/22/20 11:01am Electric Serviceman returned patient's call. Patient reported Yes she would like 9:30am initial office visit to discuss endoscopic revision procedure. Electric Serviceman left message with confirmed 9:30am appointment for 04/23/20 @ 9:30am with Dr. Rogers, and program Nurse Practitioner at [address] [facility], [address] [place] [address]. Electric Serviceman sent below e-mail with COVID questions, and requested phone or e-mail response. From: Ledy Plaza Sent: , April 22, 2020 3:32 PM To: Cate Gauthier < > Subject: RE: COVID Questions, and request for confirmation 9:30am IOV 04/23/20 in [address] [facility] [address] [place], and Thank you for the quick reply! From: September Abrahan < > Sent: April 3:26 PM To: Ledy Plaza < Subject: Re: COVID Questions, and request for confirmation 9:30am IOV 04/23/20 in [address] [facility] [address] Ledy, Fortunately, I can so NO to all three Covid related questions. Will see y'all at 9:30 in the morning. Thank you, September From: Ledy Plaza Sent: April 3:22 PM To: '[email or web address]' < > Subject: COVID Questions, and request for confirmation 9:30am [facility] Dear September, I received your voice message, and have scheduled you for 9:30am on Sunday04/23/[address] Rogers and program Nurse Practitioner Sharon De Paz, in [address], [address] [facility] [address]. See attached map and location of the medical office building #2 (MOB2) aka [address] [facility]; located toward the middle right on the attached map. I left you a voice message with the following three questions for your to either answer in responseto this e-mail, or by you responding to this inquiry via leaving a voice message for me with your answers, via [phone]: 1. In the last 10 days have you had any new or worsening cough, shortness of breath, fever (>=100f), body aches, loss of taste or of smell, diarrhea or vomiting, or sore throat? YES or NO 2. Have you had close contact with anyone confirmed or suspected of COVID-19 in the past 3 weeks? YES or NO 3. Have you tested positive for COVID -19 within the last 14 days? YES or NO Please call and leave me a voice message with your responses, or reply to this e-mail with your responses to these three questions. Looking forward to meeting you tomorrow at your initial office visit. Sincerely, Ledy [phone] From: Ledy Plaza Sent: Thursday, April 09, 2020 5:18 PM To: [email or web address] Subject: endoscopic revision procedure info & new pt paperwork Dear Cate Gauthier, Thank you for your interest in [facility] Non-surgical Weight Loss Program. It was real nice talking with you this evening. Thank you for your interest in [facility] Non-surgical Weight Loss Program. ??? HERE???S THE LINK TO AN ENDOSCOPIC REVISION PROCEDURE FROM [employer]: [email or web address] = Endoscopic Revision procedure using [employer] Overstitch device. ??? Attached is a copy of the Endoscopic Revision brochure, describing the endoscopic revision procedure, which Jett Frye performs. During the COVID-19 precautions, [facility] are seeing New bariatric endoscopy procedure package patients in-person, and via [email or web address] telehealth platform, or [employer] smartphone application. ? ? In -Person & Telehealth visit requirements include patients using an [employer] accountto E-check-in; complete all steps including Informed Consent signatures, & to be able participate in an initial office visit via Audiosocket or [employer]-V[employer]es applications. o Consent to Treat is required for telehealth phone /video visits, and can be completed: by completing the e-Check-in process (in [employer] account) up to 7 days prior to a planned visit. Initial Office Visit Copay The front and back of your insurance card is required to schedule your pre- procedure exam with one of our gastroenterology weight loss providers. If patient has a copay/coinsurance for seeing a specialist, the copay will be due upon check-in for non-surgical weight loss appointment. The initial office visit (IOV) fee is $302 if a [facility] assistant associate full professor is not in patient???s insurance network, or if patient???s insurance is not contracted with Physicians. The Initial Office Visit is billed to a patient???s insurance as a pre-procedure exam, and is not part of any prepaid procedure package programs. Patient is responsible for the $302 fee, if patient does not have a billable insurance. Paperwork Required Before Scheduling/CONFIRMING your initial Office Visit (please complete & return the 20 pages of the 23 page document titled Bariatric Endoscopy New Patient Paperwork.pdf) Medical records and additional information is required to schedule an initial office visit. Enclosed are the following documents. ? ? Patient Demographics needed to register & schedule patient for an initial office visit in electronic medical record (1 page) ??? [facility] Email Authorization(1page) ??? [facility] Communication Consent(1page) ??? Medical record release authorization form: please return one Medical Record Release form for each physician managing your care (i.e. recent labs, recent GI tests, marketing research coordinator, deputy district customs director, primary care physician). (2pages including front and back) ??? Please include a copy of the front and back or your insurance card: the Initial office visit marco antonio pre-procedure exam visit, and is billed to patient???s insurance. ??? Gastroenterology Self-Reported History and Physical information (5 pages) If you have medication list, please include ? ? [email or web address].pdf includes the below items bulleted & italicized. (The cover sheet for this packet, lists the correct mailing address.) ?? 2 screeners (10 pages in total) o PHQ-9 (1 page) o QEWP-5 (9 of 11 pages) Returning Your Completed Paperwork US Mail: US Mail is a secure way to return information to us. You may mail completed paperwork in asealed envelope to: ATTN: Bariatric Endoscopy Mri Technologist-Ledy Plaza [facility] [place] [address] [facility] [address] Fax: You may fax completed paperwork from a secure fax number. Please FAX to: [facility] Gastroenterology . ATTN: Bariatric Endoscopy Mri Technologist [facility] E-mail: Patients have also scanned new patient documents and a copy of their insurance card front/back, into an encrypted e-mail, and sent directly to my secure e-mail [email or web address] . Attachments included: ??? [id number] Final ??? Endoscopic Revision Procedure ??? Bariatric Endoscopy New Patient Paperwork pdf (23 pages) ??? Patient Side - Phone - video Visit ECHECKIN pdf ??? Doximity Bus Or Truck Garage Mechanic Video Calls What Patient Sees 10-03-19 pdf I attached quite a bit of paperwork to this email. Please do not hesitate to call or e-mail with questions. My best, Ledy [phone] Ledy Plaza MS, CYLINDER INSPECTOR AND TESTER -Bariatric Endoscopy Mri Technologist / Behavior Sap Bpc Architect [facility] - Division of Medicine, Gastroenterology [place] [address], [address] [facility] [address] Office Fax in GI Suite in [facility] The materials in this message are private and may contain Protected Healthcare Information or otherinformation of a sensitive nature. If you are not the intended recipient, be advised that any unauthorized use, disclosure, copying or the taking of any action in reliance on the contents of this information is strictly prohibited. If you have received this email in error, please immediately notifythe sender via telephone or return mail. From: Ledy Plaza Sent: April 2:42 PM To: Jeff Rogers < >; Sharon De Paz < > Subject: 04/23/20 9:30am IOV -interested in Endoscopic Revision Patient September Mariann Gauthier (64) Please find attached patient???s self reported Medical History, signed Medical Record Release, and both Screeners scored Negative. ??? PHQ-9 = NEGATIVE SCORE WITH 1 OUT 27 POINTS AND NOT DIFFICULT AT ALL REPORTED ??? QEWP-5 - NEGATIVE SCORE - NO COMPULSION AND NO VOLUME EATING REPORTED. ??? IOV on Sunday04/23/20 @ 9:30am, patient interested in endoscopic outlet repair/ endoscopic revision procedure Ps. Herrera, don???t forget 7:30am with [employer] rep. Ledy Plaza MS, CYLINDER INSPECTOR AND TESTER Bariatric Endoscopy Coordinator / Behavior Sap Bpc Architect Department of Internal Medicine Division of Gastroenterology [place] [address] Office MANAGER MANAGER documented in this encounter Plan of Treatment Upcoming Encounters Date Type Department Care Team (Late st Contact Info) Description 05/26/2024 1:30 PM TOWN MANAGER Office Visit [facility] [address], [address] [place] [address] Raphael Hernández MD [address] DEPT OPHTHALMOLOGY, [address] [place] [address] documented as of this encounter Visit Diagnoses Not on filedocumented in this encounter Care Teams Csm Consultant Relationship Specialty Start Date End Date Ananth Mullen MD PCP - General Internal Medicine 04/21/20 documented as of this encounter
--- OUTSIDE RECORDS SUMMARY | 2024-05-24 10:50 | XMS_ITS | Encounter Summary ---
Author Organization [facility] Address [address] [place] [address] Phone Care Team Providers Care Flat Lock Operator Name Role Phone Ananth Mullen MD Primary Care Provider [phone] Encounter Details Date Type Department Care Team (Late st Contact Info) Description 04/21/2020 Telephone [facility] [address] [facility] Medical Office Building [address] [place] [address] Ledy Plaza, CHOPPER OPERATOR Social History Tobacco Use Types Packs/Day Years Used Date Smoking Tobacco: Never Assessed Comments Unknown Sex and Gender Information Value Date Recorded Sex Assigned at Not on file Legal Sex Female 4:27 PM IMPLEMENT MECHANIC Gender Identity Not on file Sexual Orientation Not on file documented as of this encounter Miscellaneous Notes * Telephone Encounter - Ledy Plaza, TUGBOAT CAPTAIN - 04/21/2020 4:40 PM IMPLEMENT MECHANIC 04/21/20 4:40pm Dispatcher Bus And Trolley called and left voice message for patient, notifying patient laborer sawmill has received her new patient paperwork in US Mail today, and has created [employer] account. Dispatcher Bus And Trolley offered first available initial office visit -04/23/20 between 8:30am and 10:30am in Medical Office Building[address] Rogers, and program Nurse Practitioner (COMMERCIAL LINES ACCOUNT EXECUTIVE). Dispatcher Bus And Trolley requested return call-back and left phone number for return call to schedule IOV. Patient indicated interest in endoscopicrevision procedure, per new patient paperwork front page. ?? Patient Health Questionnaire -9 (PHQ-9) = NEGATIVE SCREEN ?? Questionnaire on Eating and Weight Patterns-5 = NEGATIVE SCREEN ?? Patient initialed and signed [employer] E-mail Authorization, indicating patient's preference to receive e-mail communication from bariatric endoscopy program via UNENCRYPTED Emails using [email or web address] ?? Patient initialed and signed [employer] Patient Communication Form, indicating provider may leave detailed telephone messages regarding patient's personal health information (PHI) using the following options: ?? Patient's cell phone number: [phone] *Please note, laborer sawmill does not diagnose. Dispatcher Bus And Trolley uses scoring jackson to make recommendations to bariatric physicians for patients requiring Mental Health/Psychiatric Evaluation & Treatment; and Binge Eating Evaluation & Treatment. See below screener scores, and laborer sawmill's recommendations, if applicable. ?? Patient Health Questionnaire -9 (PHQ-9) = NEGATIVE SCREEN USED FOR DEPRESSION SCREEN Over the last 2 weeks, how often have you been bothered by any of the following problems? Patient reported: 1. Little interest or pleasure in doing things= 0 = NOT AT ALL OVER THE LAST 2 WEEKS 2. Feeling down, depressed or hopeless = 0 = NOT AT ALL OVER THE LAST 2 WEEKS 3. Trouble falling or staying asleep, or sleeping too much= 0 = NOT AT ALL OVER THE LAST 2 WEEKS 4. Feeling tired or having little energy = 1 =SEVERAL DAYS OVER THE LAST 2 WEEKS 5. Poor appetite or overeating = 0 = NOT AT ALL OVER THE LAST 2 WEEKS 6. Feeling bad about yourself - or that you are a failure or have let yourself or your family down=0 = NOT AT ALL OVER THE LAST 2 WEEKS 7. Trouble concentrating on things, such as reading the newspaper or watching television= 0 = NOT AT ALL OVER THE LAST 2 WEEKS 8. Moving or speaking so slowly that other people could have noticed? Or the opposite -- being so fidgety or restless that you have been moving around a lot more than usual= 0 = NOT AT ALL OVER THE LAST 2 WEEKS 9. Thoughts that you would be better off or of hurting yourself in some way:= 0 = NOT AT ALL OVER THE LAST 2 WEEKS Patient's score on the PHQ-9 was a/n 1 out of 27. Scores of 1 to 4 indicate MINIMAL DEPRESSION. Below indicates the depression severity based on the scoring of the PHQ-9. Please note below Interpretation of Total Score for the 5 categories of screener. Depression Severity Table: Total Score of 1 to 4 = Minimal Depression Total Score of 5 to 9 = Mild Depression Total Score of 10-14 = Moderate Depression -AUTOMATIC POSITIVE SCREEN & REFERRAL FOR PSYCHIATRIC EVALUATION Total Score of 15-19 = Moderately Severe DepressionAUTOMATIC POSITIVE SCREEN & REFERRAL FOR PSYCHIATRIC EVALUATION Total Score of 20 -27 = Severe Depression AUTOMATIC POSITIVE SCREEN & REFERRAL FOR PSYCHIATRIC EVALUATION Patient indicated these problems made it NOT DIFFICULT AT ALL for patient to do work, take care of things at home, or get along with other people. Patient Health Qustionnaire-9 (PHQ-9) was developed by Drs. Amador Mas, Shell Hardy,Jameson Jung and colleagues, with an educational domenica from [employer]. No permission required to reproduce, translate, display or distribute. ?? Questionnaire on Eating and Weight Patterns-5 = NEGATIVE SCREEN #8 PATIENT REPLIED NO : During the past three months, patient reported that she ate in a short period of time (i.e. 2 hour period) what most people would think was an unusually large amount of food.QEWP-5 INSTRUCTS PATIENT TO SKIP TO QUESTION 21, IF ANSWER IS NO TO #8. #21. During the past three months, did you ever have episodes during which you felt you could not stop eating or control what or how much you were eating but in which you did not consume what most people would think was an unusually large amount of food? PATIENT INDICATED NO TO #21. QEWP-5 INSTRUCTS PATIENT TO SKIP TO QUESTION 26, IF ANSWER IS NO TO #21. #26. Please take a look at these silhouettes. Put a [place] around the silhouettes that most resemble the body builds of your biological father and mother at their heaviest. if you have no knowledge of your biological father and/or mother, don't [place] anything for that parent. PATIENT INDICATED #6 FOR PATIENT'S FATHER'S SILHOUETTE; PATIENT INDICATED #6 FOR PATIENT'S MOTHER'S SILHOUETTE. EMENT MECHANIC documented in this encounter Plan of Treatment Upcoming Encounters Date Type Department Care Team (Late st Contact Info) Description 05/26/2024 1:30 PM IMPLEMENT MECHANIC Office Visit [facility] [address], [address] [place] [address] Raphael Hernández MD [address] DEPT OPHTHALMOLOGY, [address] [place] [address] documented as of this encounter Visit Diagnoses Not on filedocumented in this encounter Care Teams Flat Lock Operator Relationship Specialty Start Date End Date Ananth Mullen MD PCP - General Internal Medicine 04/21/20 documented as of this encounter
--- OUTSIDE RECORDS SUMMARY | 2024-05-24 10:50 | XMS_ITS | Encounter Summary ---
Author Organization [facility] Address [address] [place] [address] Care Team Providers Care Satellite Installation Technician Name Role Phone Ananth Mullen MD Primary Care Provider [phone] Encounter Details Date Type Department Care Team (Late st Contact Info) Description 08/27/2020 8:30 AM CDT - 08/27/2020 9:30 AM CDT Surgery [facility] [address] [place] [address] Srinath Frausto MD [address] [place] [address] ESOPHAGOGASTRODUODENOS COPY/60 minute endoscopic revision Surgery Details Date/Time Status Location OR Service Patient Class Case Class Case Type Trauma Case? 08/27/2020 8:30 AM Posted [facility] Endo 04 Gastroenterology Outpatient Elective Panel 1 Procedure LRB Anes Op Region Wound Class Comments ESOPHAGOGASTRODUODENOSCOPY /60 minute endoscopic revision N/A Monitor Anesthesia Care N/A Sleeve Gastroplasty N/A Choice Surgeon Surgeon Role Service Panel Srinath Frausto [...] on file Legal Sex Female 4:27 PM TRAINING AND DEVELOPMENT ASSISTANT Gender Identity Not on file Sexual Orientation Not on file documented as of this encounter Last Filed Vital Signs Vital Sign Reading Time Taken Comments Blood Pressure 130/73 08/27/2020 8:45 AM CDT Pulse 69 08/27/2020 8:50 AM CDT Temperature 36.1 ??C (97 ??F) 08/27/2020 7:50 AM CDT Respiratory Rate 28 08/27/2020 8:50 AM CDT Oxygen Saturation 99% 08/27/2020 8:50 AM CDT Inhaled Oxygen Concentration - - Weight 119.7 kg (264 lb) 08/27/2020 7:50 AM CDT Height 157.5 cm (5' 2 ) 08/27/2020 7:50 AM CDT Body Mass Index 48.29 08/27/2020 7:50 AM CDT documented in this encounter Discharge Instructions * Discharge Instructions* Mary Parr, FLOYD - 08/27/2020 9:46 AM CDT Please refer [...] of narcotic pain medication include Percocet, Oxycontin, Gualala, Hydrocodone, and Oxycodone. -Do NOT make important [...] physical therapy, we are available to assist: [facility]: [facility] [place] [facility] [phone] [place] [phone] [facility] [phone] How are some things that you can [...] given by your doctor or other health healthcare consultant. documented in this encounter Medications at Time [...] Female Attending MD: Srinath Frausto M.D. Room: [facility] ROOM 04 Note Status: Finalized Procedure: [...] and oxygen saturations were monitored continuously. The [id number] was introduced through the mouth, and advanced to the jejunum. The [id number] was introduced through the mouth, and advanced [...] revision. Next the overtube was placed and [place] Overstitch was attached to the endoscope. Two [...] this procedure please call my office at [phone] ([phone]) to speak to Dr. Frausto's nurses. After hours and evenings please call [phone] and speak to the GI fellow surgery consultant. Please tell them that Dr. Frausto did [...] Miscellaneous Notes * Perioperative Nursing Note - Mary Parr RN - 08/27/2020 9:56 AM CDT Call placed to patients friend with update * Pre-Procedure Instructions - Diamond Gutierrez RN - 08/26/2020 3:10 PM CDT Typically for this procedure we say do not eat or drink after midnight, but please follow any instruction the office has given you. Come to [facility] hospital entrance. There is free cnc technician parking at this entrance or there is [...] safety and the safety of others per [facility] guidelines you are allowed one person to [...] patience and understanding. My number here is [phone] documented in this encounter Plan of Treatment Upcoming Encounters Date Type Department Care Team (Late st Contact Info) Description 05/26/2024 1:30 PM TRAINING AND DEVELOPMENT ASSISTANT Office Visit [facility] [address], [address] [place] [address] Raphael Hernández MD [address] DEPT OPHTHALMOLOGY, [address] [place] [address] documented as of this encounter [...] Female Attending MD: Srinath Frausto M.D. Room: [facility] 04 Note Status: Finalized Procedure: [...] and oxygen saturations were monitored continuously. The [id number] was introduced through the mouth,and advanced to the jejunum. The [id number] was introduced through the mouth, and advanced [...] pouch revision. Next the overtube was placedand [place] Overstitch was attached to the endoscope. Two [...] following this procedure please call my officeat [phone] ([phone]) to speak to 's nurses. After hours and evenings please call [phone] and speak to the GI fellow surgery consultant. Please tell them that Dr. Frausto did [...] 0 Note Initiated On: 08/27/2020 9:00 AM Srinath Frausto MD ENDOSCOPY PROCEDUR ES Final Result documented in this encounter Visit Diagnoses Diagnosis Class 3 severe obesity in adult (HCC)- Primary Class 3 severe obesity in adult, unspecified BMI, unspecified obesity type, unspecified whether serious comorbidity present (HCC) documented in this encounter Admitting Diagnoses Diagnosis [...] pain score greater than 4., Indications: Pain 09 (See Alternativ e - Provider: Laure Salinas [...] famotidine (PEPCID) tablet 20 mg 1 08/28/19 21 fentaNYL (SUBLIMAZE) preserv ative free injection 25 mcg 1 08/27/2020 HYDROmorphone (DILAUDID) injection 1 mg 1 0 08/27/2020 Lactated Ringer's (LR) infusion 1 ondansetron (ZOFRAN) injection 4 mg 2 08/27 prochlorperazine (COMPAZINE) injection 5 mg 1 08/27/2020 sodium chloride 0.9% flush 0.5-20 mL 1 08/03 documented in this encounter Care Teams Satellite Installation Technician Relationship Specialty Start Date End Date Ananth Mullen MD PCP - General Internal Medicine 04/21/20 documented as of this encounter
--- OUTSIDE RECORDS SUMMARY | 2024-05-24 10:50 | XMS_ITS | Encounter Summary ---
Author Organization [facility] Healthcare Address [address] [place] [address] Care Team Providers Care Green Material Value Added Assessor Name Role Phone Unavailable Primary Care Provider Unavailabl e Reason for Visit * Diagnostic Imaging (Routine) - Closed Specialty Diagnoses / Procedures Referred By Ambika t Referred To Contact Procedures Breast Imaging Screening Outside Reference Ofelia Naranjo NP [address] [facility] [id number] [place] [address] Phone: tel: fax: Referral ID Status Reason Start Date Expiration Date Visits Re quested Visits Authorized [id number] Closed 09/21/2022 10/21/2023 1 1 Encounter Details Date Type Department Care Team ([facility] st Contact Info) Description 04/08/2012 Hospital Encounter [facility] [place], [place] [id number] Social History Tobacco Use Types Packs/Day Years [...] file Legal Sex Female 4:27 PM MACHINE CHOCOLATE MOLDER Gender Identity Not on file Sexual Orientation Not on file documented as of this encounter Plan of Treatment Upcoming Encounters Date Type Department Care Team (Late st Contact Info) Description 05/26/2024 1:30 PM MACHINE CHOCOLATE MOLDER Office Visit [facility] Ophthalmology [address]nd [address], [address] [place] [address] Rapahel Hernández MD [address] [facility] DEPT OPHTHALMOLOGY, [address] [place] [address] documented as of this encounter Procedures Procedure Name Priority Date/Time Associated Diagnosis Comments BREAST IMAGING MG SCREENING OUTSIDE REFERENCE Routine 04/08/2012 12:00 AM MACHINE CHOCOLATE MOLDER documented in this encounter Results * Breast Imaging Screening Outside Reference (04/08/2012 12:00 AM MACHINE CHOCOLATE MOLDER) Impressions [facility]MO[facility] - 09/21/2022 3:33 PM CDT These images are for Reference purposes only and have not been reviewed by [facility] Radiology. ??There will be no report generated by a [facility] Radiologist. Narrative [facility]MO[facility] - 09/21/2022 3:33 PM CDT EXAMINATION: ??Images For Reference Purposes Only us Ofelia Naranjo NP IMG MAMMO PROCEDURES Final Result [facility] documented in this encounter Visit Diagnoses Not on filedocumented in this encounter
--- OUTSIDE RECORDS SUMMARY | 2024-05-24 10:50 | XMS_ITS | Encounter Summary ---
Author Organization [facility] Address [address] [place] [address] Phone Care Team Providers Care Fashion Merchandiser Name Role Phone Ananth Mullen MD Primary Care Provider [phone] Encounter Details Date Type Department Care Team (Late st Contact Info) Description 09/06/2020 Telephone [facility] Gastroenterology [address] [facility] Medical Office Building [address] [place] [address] Ledy Plaza, SEAMARK ADVANCED OPERATOR MAINTAINER Social History Tobacco Use Types Packs/Day Years [...] on file Legal Sex Female 4:27 PM MOSS GATHERER Gender Identity Not on file Sexual Orientation Not on file documented as of this encounter Miscellaneous Notes * Telephone Encounter - Ledy Plaza, ROAD INSPECTOR - 09/06/2020 9:28 AM CDT 09/06/20 9:28am Patient Services Representative called and reached patient, to find out if patient had meant to cancel one week planned return office visit this morning. Patient reported she had accidentally hit the cancel button in My Chart on her planned tele health visit, and patient reported she has been ready since 9am for her planned visit with program Nurse Practitioner (NURSING STAFFING COORDINATOR). Patient thanked hearings reporter and hung-up. Patient Services Representative told patient to stick by phone, and program NURSING STAFFING COORDINATOR will call patient in a minute. Patient Services Representative spoke with program NURSING STAFFING COORDINATOR, who indicated she is calling patient for planned encounter right now and reinstating visit as planned. documented in this encounter Plan of Treatment Upcoming Encounters Date Type Department Care Team (Late st Contact Info) Description 05/26/2024 1:30 PM MOSS GATHERER Office Visit [facility] Ophthalmology [address] 2nd Floor, [address] [place] [address] Raphael Hernández MD [address] [facility] DEPT OPHTHALMOLOGY, [address] [place] [address] documented as of this encounter Visit Diagnoses Not on filedocumented in this encounter Care Teams Fashion Merchandiser Relationship Specialty Start Date End Date Ananth Mullen MD PCP - General Internal Medicine 04/21/20 documented as of this encounter
--- OUTSIDE RECORDS SUMMARY | 2024-05-24 10:50 | XMS_ITS | Encounter Summary ---
Author Organization [facility] Address [address] [place] [address] Phone Care Team Providers Care Video Camera Operator Name Role Phone Ananth Mullen MD Primary Care Provider [phone] Encounter Details Date Type Department Care Team (Late st Contact Info) Description 11/03/2020 Telephone [facility] Gastroenterology [address] [place] [address] Medical Office Building [address] [place] [address] Ledy Plaza, PHOTOGRAPHIC LITHOGRAPHER Social History Tobacco Use Types Packs/Day Years [...] on file Legal Sex Female 4:27 PM AUTO EMISSIONS TECHNICIAN Gender Identity Not on file Sexual Orientation Not on file documented as of this encounter Miscellaneous Notes * Telephone Encounter - Ledy Plaza, CREDIT CARD ASSOCIATE - 11/03/2020 7:25 PM CDT 11/04/20 Body Component Engineer received response from [email or web address]. Unless patient gets internet in her home and connects via wifi, patient will likely continue to have a spotty connection, as she uses an ureliable hotspot device, which has limitations when patient is connecting to session with same device. 11/03/20 7:25 - 8pm Body Component Engineer called patient after behavior coaching group ended. Body Component Engineer called patient after behavior coaching group ended. Patient and payroll and benefits assistant remained on the phone strategizing howpatient could possibly join thera-LINK group next week. Patient agreed to call [employer] [employer] customer support number on to find out what she can do. Patient and payroll and benefits assistant had a 1/2 hour individual thera-LINK session testing connectivity. It was determined patient will join next week's thera-LINK 11/03/20 6pm - 7pm Patient joined thera-LINK from her home, using an ipad, and then via patient's android phone. Patient had connectivity issues, and created an unstable environment with the group, resulting in patient's image and vocalizations not being seen nor heard for 2nd half of group. Ultimately, Patient's ipad froze, and then dropped patient out of group. From: Ledy Plaza Sent: November 11:26 AM To: [facility] <[email or web address]> Subject: RE: thera-LINK Re: Missed Chat with Ledy Plaza Thanks so much for the explanation Young! Wishing you my best, Ledy From: Young Carlson ([email or web address]) <[email or web address]> Sent: November 11:21 AM To: Ledy Plaza < > Subject: thera-LINK Re: Missed Chat with Ledy Plaza * External Email - Caution * Your request ([id number]) has been updated. To add additional comments, reply to this email. Young Carlson ([email or web address]) Nov 04, 2020, 11:21 AM CDT The difference between us and jose roberto is that zoom is a download and is actually on the hard drive of a device. Since we're a web based system, they have to log into our portal via some external connection and then it connects back to session, sort of. I don't think there are going to be any true solutions given the limitations of having that hot spot. Hot spots are typically not as stable as regular wifi since it's sort of connecting twice also. Best, ~young Villafana Plaza Nov 04, 2020, 9:57 AM CDT Yes, Young, unfortunately, the patient has no wifi in her home. She is relying on the ipad or the phone for the hotspot, and connecting with the other. The phone is a droid, and the ipad is apple. Shesaid she is willing to log in with ipad, for ?? hour, and the other patient who has an unreliable connection on the road, can log in for the other ?? hour of the group. It???s not a perfect solution,but I don???t think she is able to get internet in her home for some reason. She said she has had no problem all year with Zoom connections. I don???t know why this would be. She is calling [email or web address] support today to problem solve. If she cannot do groups that are planned, I will try to do something with the patient monthly to supplement her not being able to join the groups. Young Carlson ([email or web address]) Nov 04, 2020, 8:08 AM CDT Ledy, Is the patient using the iPad only for connection and using a computer or phone for the session? Hot spots are usually poor conductors of wifi particularly when there are multiple people. I'm not sure what can be done to improve that? If she's trying to use the iPad for both a way to connect and a hotspot, it's definitely too much for the system to manage in a group. Best, ~young Villafana Mela Nov 03, 2020, 8:13 PM CDT Group member will be calling [email or web address] tomorrow to discuss how to connect using her ipad. Patient is using her ipad???s hotspot to connect. It seems that when another group member got onto the session from a hotspot in another state, the 1st group member disappeared from my view (as the crime lab analyst) and she could see and hear us, but we couldn???t see and hear her. Ledy Plaza Nov 03, 2020, 8:08 PM CDT Chat started: 2020-11-04 12:32 AM [facility] (12:32:43 AM) Ledy Plaza: Patient is having difficu;lty sustaining connection to thera[employer]LINk. Is there someone who can walk her thru what needs to be turned on on her end to sustain connection for next group. (12:33:45 AM) Customer Service: We apologize for keeping you waiting! Please leave us a message with your email address and we'll get back to you shortly. (12:34:07 AM) Ledy Plaza: [email or web address] This email is a service from [email or web address]. Delivered by [email or web address] documented in this encounter Plan of Treatment Upcoming Encounters Date Type Department Care Team (Late st Contact Info) Description 05/26/2024 1:30 PM AUTO EMISSIONS TECHNICIAN Office Visit [facility] Ophthalmology [address] [facility] [address]nd [address], [address] [place] [address] Raphael Hernández MD [address] [facility] DE[facility] OPHTHALMOLOGY, [address] [place] [address] documented as of this encounter Visit Diagnoses Not on filedocumented in this encounter Care Teams Video Camera Operator Relationship Specialty Start Date End Date Ananth Mullen MD PCP - General Internal Medicine 04/21/20 documented as of this encounter
--- OUTSIDE RECORDS SUMMARY | 2024-05-24 10:50 | XMS_ITS | Encounter Summary ---
Author Organization [facility] Address [address] [place] [address] Phone Care Team Providers Care Cheesemaker Name Role Phone Ananth Mullen MD Primary Care Provider [phone] Reason for Visit * Reason Onset Date Comments Moving forward with revision procedure. 06/25/19 Encounter Details Date Type Department Care Team (Late st Contact Info) Description 06/25/2020 Telephone [facility] Gastroenterology [address] [place] [address] Medical Office Building [address] [place] [address] Ledy Plaza, COMMUNICATIONS OFFICER Moving forward with revision procedure. Social History Tobacco Use Types Packs/Day Years [...] on file Legal Sex Female 4:27 PM WATER PROJECT MANAGER Gender Identity Not on file Sexual Orientation Not on file documented as of this encounter Miscellaneous Notes * Telephone Encounter - Ledy Plaza, NUTRITIONAL HEALTH COACH - 06/25/2020 11:53 AM WATER PROJECT MANAGER 06/25/20 Plastic Surgery Coordinator received patient's Nutritional Evaluation and the below contents in a note attached to her paperwork for program dietitian. Plastic Surgery Coordinator sent to dietitian tile molder hand, and dietitian patient has Nutrition Evaluation visit scheduled with (for 07/28/20), today via secure [employer] e-mail to secure [facility] e-mail. Ledy, 06/16/2020 Hoping you are staying well. I have my netbackup admin's appt. set for 2020. You were correct that the appt. time slots were spaced out. I called within a day or two of our office visit and made my appt. Since I saw you in person, I have had the endoscopy and report. The doctor says I would benefit from the Revision Procedure. I am planning to move forward with the procedure and will be paying out ofpocket. The enclosed paperwork was one of the lagging details I needed to take care of and get to you. If Deo not mistaken you told me I could send it to you. I did not make a copy, so this is it!! We will continue to stay in touch. I am watching my account online. Thank you and have a great day. September [address] [place] [address] 06/25/20 11:56am Plastic Surgery Coordinator called and reached patient, to confirm receipt of patient's Nutritional Evaluation paperwork. Patient reported she is expecting an inheritance some time in July, and willbe pre-paying for Endoscopic Revision Procedure, and wanting to get scheduled in early August, as long as money is received from her inheritance. Patient reported she will let java technical manager know when she is ready to confirm a procedure date. Plastic Surgery Coordinator told patient, java technical manager will notify program Nurse Practitioner of patient's preference for lab work to go to [facility]. Patient thanked java technical manager, agreed to call java technical manager if she has questions, and then hung-up. Plastic Surgery Coordinator told Nurse Practitioner, and STAMPS OR COINS SALESPERSON reported she will review patient's labs, and send-in any required Lab orders for patient on Sunday06/28/20. R PROJECT MANAGER documented in this encounter Plan of Treatment Upcoming Encounters Date Type Department Care Team (Late st Contact Info) Description 05/26/2024 1:30 PM WATER PROJECT MANAGER Office Visit [facility] Ophthalmology [address] [facility] 2nd Floor, [address] [place] [address] Raphael Hernández MD [address] DEPT OPHTHALMOLOGY, [address] [place] [address] documented as of this encounter Visit Diagnoses Not on filedocumented in this encounter Care Teams Cheesemaker Relationship Specialty Start Date End Date Ananth Mullen MD PCP - General Internal Medicine 04/21/20 documented as of this encounter
--- OUTSIDE RECORDS SUMMARY | 2024-05-24 10:50 | XMS_ITS | Encounter Summary ---
Author Organization [facility] Address [address] [place] [address] Phone Care Team Providers Care Washery Engineer Name Role Phone Ananth Mullen MD Primary Care Provider [phone] Encounter Details Date Type Department Care Team (Late st Contact Info) Description 07/22/2020 Orders Only [facility] Gastroenterology [address] [facility] Medical Office Building [address] [place] [address] Sharon De Paz, CASS [address] [place] [address] Social History Tobacco Use Types Packs/Day Years [...] on file Legal Sex Female 4:27 PM ANTENNA SPECIALIST Gender Identity Not on file Sexual Orientation Not on file documented as of this encounter Progress Notes * Sharon De Paz NP - 07/22/2020 2:40 PM CST Pre-procedure covid test at [facility] on 08/24/2020. Endo revision on 08/27/2020 NNA SPECIALIST documented in this encounter Plan of Treatment Upcoming Encounters Date Type Department Care Team (Late st Contact Info) Description 05/26/2024 1:30 PM ANTENNA SPECIALIST Office Visit [facility] Ophthalmology [address] [facility] 2nd Floor, [address] [place] [address] Raphael Hernández MD [address] [address] [facility] DEPT OPHTHALMOLOGY, [address] [place] [address] documented as of this encounter Visit Diagnoses Not on filedocumented in this encounter Care Teams Washery Engineer Relationship Specialty Start Date End Date Ananth Mullen MD PCP - General Internal Medicine 04/21/20 documented as of this encounter
--- OUTSIDE RECORDS SUMMARY | 2024-05-24 10:50 | XMS_ITS | Encounter Summary ---
Author Organization [facility] Address [address] [place] [address] Phone Care Team Providers Care Concrete Block Maker Name Role Phone Ananth Mullen MD Primary Care Provider [phone] Encounter Details Date Type Department Care Team (Late Contact Info) Description 07/22/2020 Orders Only [facility] Gastroenterology [address] [facility] Medical Office Building [address] [place] [address] Srinath Frausto MD [address] [place] [address] Class 3 severe obesity in adult, unspecified BMI, unspecified obesity type, unspecified whether serious comorbidity present (CMS/HCC) (Primary Dx) Social History Tobacco Use Types [...] on file Legal Sex Female 4:27 PM LOANS OFFICER Gender Identity Not on file Sexual Orientation Not on file documented as of this encounter Plan of Treatment Upcoming Encounters Date Type Department Care Team (Late st Contact Info) Description 05/26/2024 1:30 PM LOANS OFFICER Office Visit [facility] Ophthalmology [address] [facility] 2nd Floor, [address] [place] [address] Raphael Hernández MD [address] DEPT OPHTHALMOLOGY, [address] [place] [address] documented as of this encounter Visit Diagnoses Diagnosis Class 3 severe obesity in adult, unspecified BMI, unspecified obesity type, unspecified whether serious comorbidity present (HCC)- Primary documented in this encounter Orders Case Request Count Last Ordered Date First Orde red Date CASE REQUEST GI 1 07/22/2020 documented in this encounter Care Teams Concrete Block Maker Relationship Specialty Start Date End Date Ananth Mullen MD PCP - General Internal Medicine 04/21/20 documented as of this encounter
--- OUTSIDE RECORDS SUMMARY | 2024-05-24 10:50 | XMS_ITS | Encounter Summary ---
Author Organization [facility] Address [address] [place] [address] Phone Care Team Providers Care Air Vice Marshal Name Role Phone Ananth Mullen MD Primary Care Provider [phone] Reason for Referral * Consultation (Routine) - Closed Specialty Diagnoses / Procedures Referred By Ambika montoya Referred To Contact Diabetes and Nutrition Services Diagnoses Weight gain following gastric bypass surgery Preoperative examination Sharon De Paz NP [address] [place] [address] Phone: tel: fax: [address] [phone] Referral ID Status Reason Start Date Expiration Date V isits Requested Visits Authorized [id number] Closed Specialty Services Required 04/23/2020 05/23/2021 13 13 Question Answer [id number] Initial / Annual Follow-up MNT Please select the performing region: [facility] [[id number]] # of visits: 13 Comments Bariatric endoscopic revision. May also require 6 months of weight loss program OR PROJECT CONTROLS SPECIALIST Encounter Details Date Type Department Care Team (Late st Contact Info) Description 04/23/2020 9:30 AM SENIOR PROJECT CONTROLS SPECIALIST Office Visit [facility] Gastroenterology [address] [facility] [address] [place] [address] Sharon De Paz NP [address] [place] [address] Heartburn (Primary Dx); Weight gain following gastric bypass surgery; Preoperative examination Social History Tobacco Use Types Packs/Day Years Used Date Smoking Tobacco: Never Comments Unknown Sex and Gender Information Value Date Recorded Sex Assigned at Not on file Legal Sex Female 4:27 PM SENIOR PROJECT CONTROLS SPECIALIST Gender Identity Not on file Sexual Orientation Not on file documented as of this encounter Last Filed Vital Signs Vital Sign Reading Time Taken Comments Blood Pressure 137/81 04/23/2020 9:19 AM SENIOR PROJECT CONTROLS SPECIALIST Pulse 86 04/23/2020 9:19 AM SENIOR PROJECT CONTROLS SPECIALIST Temperature 36.4 ??C (97.5 ??F) 04/23/2020 9:19 AM CS T Respiratory Rate - - Oxygen Saturation - - Inhaled Oxygen Concentration - - Weight 122.7 kg (270 lb 8 oz) 04/23/2020 9:19 AM SENIOR PROJECT CONTROLS SPECIALIST Height 157.5 cm (5' 2 ) 04/23/2020 9:19 AM SENIOR PROJECT CONTROLS SPECIALIST Body Mass Index 49.48 04/23/2020 9:19 AM SENIOR PROJECT CONTROLS SPECIALIST documented in this encounter Progress Notes * Sharon De Paz, CASS - 04/23/2020 9:30 AM CST [facility] DIV[facility] OF GASTROENTEROLOGY NON-SURGICAL BARIATRIC ENDOSCOPY WEIGHT LOSS CLINIC Clinic Address: [address] [place] [address] [address], [facility] [address] Mailing Address: Tomasa Williamson, [place] [address] [place], [place] [id number] Bariatric Endoscopy Clinic, Initial Office Visit NAME: Cate Gauthier : 1960 DOS: 04/23/2020 Cate Gauthier 59 y.o. female with obesity, weight gain s/p weight loss surgery, osteoarthritis andGERD. Surgical hx of RYGB in 2004 in [place], hysterectomy 2003. 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 Weight History: Cate Gauthier reports weighing 300lbs just prior to her RYGB in august of 2004. She had a lot of nausea/vomiting difficulties post surgery and required a dilation. In about one year she reached her sade weight at 175lbs. She mainted that weight for about 3-4 years and gradually gained near 100 lbsthe past 10 years. Today she weighs 270lbs. She reports that the weight gain strongly correlates with her now being able to tolerate sweets. She does feel restriction and eats small meals.Current eating habits include grazing, sweets and 4 diet cokes a day. Patient is currently not exercising. Screeners: Depression-negative Being eating-negative No past medical history on file. Patient Active Problem List Diagnosis ??? Heartburn ??? Weight gain following gastric bypass surgery ??? Preoperative examination ??? Hx of hysterectomy ??? Arthritis ??? History of Lisha-en-Y gastric bypass Current Outpatient Medications Medication Sig Dispense Refill ??? calcium carbonate (CALCIUM 500 ORAL) Take by mouth ??? ergocalciferol, vitamin D2, (VITAMIN D2 ORAL) Take by mouth ??? simvastatin (ZOCOR) 10 mg tablet ??? venlafaxine (EFFEXOR) 75 mg tablet No current facility-administered medications for this visit. Patient has no known allergies. No family history on file. Social History Tobacco Use ??? Smoking status: Never Smoker Substance Use Topics ??? Alcohol use: Not on file ??? Drug use: Not on file No past surgical history on file. Review of Systems Respiratory: Negative. Cardiovascular: Negative. Gastrointestinal: [place] Endocrine: Negative. Musculoskeletal: Positive for arthralgias. Left knee pain, 2 years of injections. May require surgery soon. Neurological: Negative. Psychiatric/Behavioral: Negative. Physical Exam Constitutional: Appearance: Normal appearance. Cardiovascular: Rate and Rhythm: Normal rate and regular rhythm. Abdominal: General: Bowel sounds are normal. Palpations: Abdomen is soft. Skin: General: Skin is warm and dry. Neurological: Mental Status: She is alert and oriented to person, place, and time. Psychiatric: Mood and Affect: Mood normal. Behavior: Behavior normal. Thought Content: Thought content normal. Judgment: Judgment normal. Vitals BP 137/81 (BP Location: Left arm, Patient Position: Sitting) Pulse 86 Temp 36.4 ??C (97.5 ??F) (Temporal) Ht 157.5 cm (5' 2 ) Wt 122.7 kg (270 lb 8 oz) BMI 49.48 kg/m?? Assessment/Plan: We discussed the Endoscopic gastric outlet/pouch reduction revision option, the expected outcomes, risks of the procedure, diet post procedure, down time and side effects. She is interested in movingforward to see if she is a candiadate for this procedure. -EGD ordered to assess her RYGB anastomosis and pouch, and for GERD/heartburn symptoms. IF her anastomosis is enlarged we can move forward with the endoscopic revision procedure. We will order labs and RD at that time. Patient was allowed ample time for questions and all questions were answered. Diagnoses and all orders for this visit: Heartburn (Primary) - Case Request GI: ESOPHAGOGASTRODUODENOSCOPY Weight gain following gastric bypass surgery - Case Request GI: ESOPHAGOGASTRODUODENOSCOPY - Ambulatory referral to Nutrition Services; Future Preoperative examination - Case Request GI: ESOPHAGOGASTRODUODENOSCOPY - Ambulatory referral to Nutrition Services; Future OR PROJECT CONTROLS SPECIALIST documented in this encounter Plan of Treatment Upcoming Encounters Date Type Department Care Team (Late st Contact Info) Description 05/26/2024 1:30 PM SENIOR PROJECT CONTROLS SPECIALIST Office Visit [facility] Ophthalmology [address] [facility] [address], [address] [place] [address] Raphael Hernández MD [address] [address] [address] DEPT OPHTHALMOLOGY, [address] [place] [address] Scheduled Referrals Name Type Priority Associated Diagnoses Orde r Schedule Ambulatory referral to Nutrition Services Outpatient Referral Routine Weight gain following gastric bypass surgery Preoperative examination Expected: 05/07/2020 (Approximate), Expires: 04/23/2021 documented as of this encounter Visit Diagnoses Diagnosis Heartburn- Primary Weight gain following gastric bypass surgery Preoperative examination Unspecified pre-operative examination documented in this encounter Historical Medications * This list may reflect changes made after this encounter. venlafaxine (EFFEXOR) 75 mg tabletIndications :hx of depression Take 1 tablet (75 mg total) by mouth every morning 04/13/2020 ergocalciferol, vitamin D2, (VITAMIN D2 ORAL) Take by mouth 08/03 calcium carbonate (CALCIUM 500 ORAL) Take by mouth 08/24/2020 simvastatin (ZOCOR) 10 mg tabletIndications :hyperlipidemia Take 10 mg by mouth every morning 04/13/2020 10/03/2022 added in this encounter Orders Case Request Count Last Ordered Date First Orde red Date CASE REQUEST GI 1 04/23/2020 documented in this encounter Care Teams Air Vice Marshal Relationship Specialty Start Date End Date Ananth uMllen MD PCP - General Internal Medicine 04/21/20 documented as of this encounter
--- OUTSIDE RECORDS SUMMARY | 2024-05-24 10:50 | XMS_ITS | Encounter Summary ---
Author Organization [facility] Healthcare Address [address] [place] [address] Care Team Providers Care Advanced Quality Engineer Name Role Phone Ananth Mullen MD Primary Care Provider [phone] Encounter Details Date Type Department Care Team (Late st Contact Info) Description 08/27/2020 8:51 AM CDT Anesthesia Event [facility] [address] [place] [address] John Segura MD [address] [place] [address] Diamond Abraham, SECONDARY HISTORY TEACHER [address] [place] [address] Anesthesia Record Procedure Summary Procedure Name Responsible Anesthesiologist Anesthesia Start Time Anesthesia Stop Time ESOPHAGOGASTRODUODEN OSCOPY/60 minute endoscopic revision John Segura MD 08/27/20 0851 08/27/20 0938 Events Date Time Event Comment 08/27/2020 0750 AN Equip Check 0809 0851 An Start 0851 An Start Data 0852 In Room 0855 An Induction The patient was reevaluated immediately before moderate or deep sedation use and before anesthesia induction. 0856 An Intubation 0900 Anesthesia Ready 0902 Proc Start 0921 Proc Fin 0927 An Extubation 0932 an stop data 0932 Out of Room 0938 Handoff to RN I completed my handoff [...] disposition at the time of handoff: PACU 0938 An Stop Meds Name Total lidocaine 1 % PF 5 mL propofol 150 mg rocuronium 30 mg succinylcholine syringe 100 mg/5 mL 100 mg ondansetron PF 4 mg dexamethasone 10 mg/mL PF 4 mg ceFAZolin 2,000 mg metoclopramide 10 mg sugammadex 200 mg fentaNYL (SUBLIMAZE) preservative free i njection 25 mcg 25 mcg Lactated Ringer's (LR) infusion 0 mL * Agents Name O2 Sevoflurane Inspired Sevoflurane * Blood No blood administrations on file. Lines, Drains, and Airways Type Details Placement Removal Peripheral IV Placement Date: 08/27/20; Placement Time: 810; Catheter Size: 22 G; Orientation: Right; Location: Hand; Site Prep: Chlorhexidine; Inserted by: chula; Insertion Attempts: 1; Patient Tolerance: Tolerated well; Removal Date: 08/27/20; Removal Time: 1200 08/27/20 0811 by Audrey Tomlinson RN 08/27/20 1200 by Olinda Mcdonald RN ETT Placement Date: 08/27/20; Placement Time: 905 (created via procedure documentation); Mask Ventilation: 1; Technique: Direct laryngoscopy; Type: ETT - single; Single Lumen Tube Size: 7 mm; Cuffed: Yes; Laryngoscope: Theodore; Blade Size: 4; Location: Oral; Grade View: Grade I; Insertion Attempts: 1; Placement Verification: Auscultation, Capnometry; Removal Date: 08/27/20; Removal Time: 92608/27/20 09 by Laure Salinas CRNA 08/27/20926 by Laure Salinas CRNA documented in this encounter Social History Tobacco [...] on file 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 Gender Identity Not on file Sexual Orientation Not on file documented as of this encounter OR Notes * Anesthesia Postprocedure Evaluation - Nadine Pepper MD - 08/27/2020 1:59 PM CDT Patient: September Abrahan Procedure Summary Date: 08/27/20 Room / Location: [facility] ENDOSCOPY ROOM 04 [facility] Anesthesia Start: 850 Anesthesia Stop: 937 Procedures: ESOPHAGOGASTRODUODENOSCOPY/60 minute endoscopic revision (N/A ) Sleeve Gastroplasty (N/A ) Diagnosis: Class 3 severe obesity in adult, unspecified BMI, unspecified obesity type, unspecified whether serious comorbidity present (CMS/HCC) (Class 3 severe obesity in adult, unspecified BMI, unspecified obesity type, unspecified whether serious comorbidity present (CMS/HCC) [E66.01]) Providers: Srinath Frausto MD Responsible Provider: John Segura MD Anesthesia Type: general ASA Status: 3 Anesthesia Type: general Last vitals BP 146/75 Pulse 73 Temp 36.3 ??C (97.3 ??F) Resp 15 SpO2 96% Anesthesia Post Evaluation Patient location during evaluation: PACU Patient participation: complete - patient participated Level of consciousness: fully awake Pain score: 0 Pain management: adequate Airway patency: adequate Evidence of recall: no Anesthetic complications: no Cardiovascular status: hemodynamically stable and acceptable Respiratory status: acceptable and room air Hydration status: acceptable Pt is: normothermic Nausea/Vomiting status: none * Anesthesia Procedure Notes - Laure Salinas CRNA - 08/27/2020 9:04 AM CDT Associated Order(s): Airway Airway Patient location: OR Urgency: elective Indications for airway management: anesthesia and airway protection Difficult airway: no Staff: Placed by: SECONDARY HISTORY TEACHER: Laure Salinas CRNA Emergent airway documentation: Risks and benefits discussed: yes Consent obtained: yes Consent given by: patient Airway prep: Preoxygenated: yes Mask difficulty assessment: 1 - vent by mask Spontaneous ventilation during airway: absent Sedation level during airway: deep Final airway details: Final airway type: endotracheal airway Tube type: ETT ETT size: 7.0 mm Cuffed: yes Technique used for successful ETT placement: direct laryngoscopy Devices/Methods used in placement: intubating stylet and anterior pressure/BURP Insertion site: oral Blade type: Theodore Blade size: 4 Cormack-Lehane (direct): grade I - full view of glottis Cuff inflated with: air Placement verified by: auscultation and CO2 detection Airway secured with: silk tape Number of attempts: 1 * Anesthesia Preprocedure Evaluation - John Segura MD - 08/24/2020 2:11 PM CDT Images from the original note were not included. [facility] for Preoperative Assessment and Planning Preoperative Evaluation Record Evaluation type/location: CPAP [facility] Planned procedure site: GI Lab [facility] Date: 08/24/20 Anesthesia Evaluation September Abrahan is a 60 y.o. female Procedure(s): ESOPHAGOGASTRODUODENOSCOPY/60 minute endoscopic revision Pre-Op Diagnosis Codes: * Class 3 severe obesity in adult, unspecified BMI, unspecified obesity type, unspecified whether serious comorbidity present (CMS/[facility]) [E66.01] HISTORY HPI 60 year old female with hx of STEVE, morbid obesity undergoing esophagogastroduodenoscopy for evaluation of endoscopic gastric outlet/pouch reduction revision. Past Medical History Information obtained from: patient and chart. Neurological + Psychiatric history - depression and anxiety Pertinent negatives: seizures; neuromuscular disease; CVA/stroke; TIA; CEA; ICA stenosis; dementia/mild cognitive impairment and carotid artery stent Cardiovascular + Hyperlipidemia (on statin) Pertinent negatives: hypertension ; CAD ; AR ; CABG ; valvular heart disease; valve replacement; atrial fibrillation; arrhythmia; pacemaker/ICD; PVD; DVT/PE; negative for CHF; drug-eluting stent(s); bare metal stent(s) and coronary angioplasty Comments: Pt reports heart murmur as a child Respiratory + Sleep apnea (STEVE) Prescribed device: PAP non-compliant. Pertinent negatives: COPD; asthma; pulmonary hypertension; no O2 use outside the hospital and non-smoker Hepatic / Heme Pertinent negatives: liver disease; history of anemia; history of thrombocytopenia and history of Tim positive Gastrointestinal + GERD - on daily therapy. Asymptomatic. Pertinent negatives: hiatal hernia Renal / + Renal disease (elevated Cr of 1.11 07/2020, pt denies past kidney issues ) Pertinent negatives: dialysis and nephrolithiasis Musculoskeletal/Pain + Chronic pain (left knee) + Osteoarthritis Pertinent negatives: chronic opioid use and previous treatment for opioid use disorder Endocrine / Other + Obesity (BMI >30) (BMI 50)- morbid obesity (BMI>40). Pertinent negatives: diabetes mellitus; thyroid disease; cancer history; rheumatological disease and transplanted organ Functional Capacity Functional capacity: 4-6 METs Comments: Can walk upstairs from basement to main level with laundry without SOB or CP. Pt states could probably walk 3 city blocks without SOB or CP Review of Systems + easy bruising (no spontaneous bleeds) + chronic pain (left knee) + vision loss (glasses) Pertinent negatives: productive cough; wheezing; SOB; recent cold/flu; fever; chest pain; palpitations; orthopnea; pedal edema; PND; heavy menses; Sickle Cell disease/trait; previous transfusion; transfusion reaction; melena/hematochezia; bleeding problems; syncope; dizziness; muscle weakness; numbness/tingling; hard of hearing; heartburn; nausea; dysphagia; diarrhea; dentures/partials; chipped/loose teeth; abdominal pain; diaphoresis and no unexpected weight change PAT Summary and Plans Cardiac risk classification of planned procedure: low cardiac risk. Additional comments: Cate Gauthier is a 60 y.o. female who is being evaluated prior to undergoing a low cardiac risk surgery. Revised Cardiac Risk Index factors are (none) for a total RCRI of 0 out of 6. Functional capacity is 4-6 METs. Obstructive sleep apnea (STEVE) screening status is HIGH RISK due to known STEVE. Blood bank needs for day of procedure: No type and screen needed Reviewed 07/2020 CMP and CBC, besides elevated Cr of 1.11, unremarkable Patient's COVID19 status is: Unexposed. The patient currently has no concerning symptoms of COVID19. . Plan for pre-procedure COVID19 testing: Surgery date within 4 days. Pre-procedure COVID19 testing performed at [facility]. Result pending- to be reviewed by surgeon's office. . Preoperative evaluation performed by Erum Warren NP on 08/24/20 at 2:16 PM. . Follow up note #1 COVID-19: Not detected Surgeon's office reviews laboratory results independently. CPAP process complete. Follow-up completed by: Rebecca aHy NP on 08/25/20 at 10:52 AM Patient Active Problem List Diagnosis ??? Heartburn ??? Weight gain following gastric bypass surgery ??? Preoperative examination ??? Hx of hysterectomy ??? Arthritis ??? History of Hood-en-Y gastric bypass ??? Class 3 severe obesity in adult (CMS/HCC) Past Medical History: Diagnosis Date ??? Hyperlipidemia ??? Morbid obesity (CMS/HCC) Past Surgical History: Procedure Laterality Date ??? COLONOSCOPY ??? HYSTERECTOMY 2003 ??? HOOD-EN-Y PROCEDURE 2004 ??? UPPER GASTROINTESTINAL ENDOSCOPY 05/31/2020 OB History No obstetric history on file. No Known Allergies Med List Status: Nurse Complete Set By: Keyonna Amos RN at 08/24/2020 1:59 PM Taking? Last Dose Start Date End Date Provider aprepitant (EMEND) 40 mg capsule -- -- ProviderFemi MD calcium phosphate trib/vit D3 (CITRACAL + D3, CALCIUM PHOS, ORAL) 08/24/2020 -- -- Femi Sethi MD cholecalciferol (Vitamin D3) 5,000 unit tablet 08/24/2020 -- -- Femi Sethi MD cyanocobalamin, vitamin B-12, (VITAMIN B-12 ORAL) 08/24/2020 -- -- Femi Sethi MD LORazepam (ATIVAN) 0.5 mg tablet 08/27/20 -- Srinath Frausto MD MULTIVITAMIN ORAL 08/24/2020 -- -- Femi Sethi MD omeprazole (PriLOSEC) 40 mg capsule 08/24/2020 08/11/20 -- Sharon De Paz, CASS Take 1 capsule (40 mg total) by mouth 2 (two) times a day before breakfast and dinner ondansetron ODT (ZOFRAN-ODT) 8 mg disintegrating tablet 08/11/20 08/24/20 Sharon De Paz, CASS Take 1 tablet (8 mg total) by mouth every 8 (eight) hours as needed for nausea or vomiting for up to 13 days Take for 4 days following proc scopolamine 1 mg over 3 days patch 3 day 08/11/20 -- Femi Sethi MD simvastatin (ZOCOR) 10 mg tablet 08/24/2020 04/13/20 -- Femi Sethi MD venlafaxine (EFFEXOR) 75 mg tablet 08/24/2020 04/13/20 -- Femi Sethi MD Current Outpatient Medications: ??? aprepitant (EMEND) 40 mg capsule ??? calcium phosphate trib/vit D3 (CITRACAL + D3, CALCIUM PHOS, ORAL) ??? cholecalciferol (Vitamin D3) 5,000 unit tablet ??? cyanocobalamin, vitamin B-12, (VITAMIN B-12 ORAL) ??? MULTIVITAMIN ORAL ??? omeprazole (PriLOSEC) 40 mg capsule ??? scopolamine 1 mg over 3 days patch 3 day ??? simvastatin (ZOCOR) 10 mg tablet ??? venlafaxine (EFFEXOR) 75 mg tablet ??? [START ON 08/27/2020] LORazepam (ATIVAN) 0.5 mg tablet ??? ondansetron ODT (ZOFRAN-ODT) 8 mg disintegrating tablet Social History Tobacco Use Smoking Status Never Smoker Smokeless Tobacco Never Used Substance and Sexual Activity Alcohol Use Never Substance and Sexual Activity Drug Use Never No family history on file. PAT Physical Exam Airway Exam: Mallampati: II Cervical ROM: FROM TM distance: 3 Cardiovascular Exam: Rate: regular Rhythm: regular Negative for Murmur No extra heart sounds appreciated Peripheral edema: trace edema Pulmonary Exam: LCTA negative EENT Exam: trachea midline Dental Exam: Appears intact Skin Exam: Skin is warm and dry. Abdominal exam: Abdomen is soft. Bowel sounds are present. Current state: Patient's current state is cooperative and interactive. Vitals: 08/24/20 1405 08/24/20 1410 BP: 134/85 128/78 Pulse: 77 SpO2: 99% PT: No results found for requested labs [...] for requested labs within last 720 hours. Arsh index score: 100 DOS Physical Exam Medical history, medications, and allergies reviewed. Attestation: This PAT evaluation Airway Exam: Mallampati: II Cervical ROM: FROM Cardiovascular Exam: Rate: regular Rhythm: regular Pulmonary Exam: LCTA, bilat Anesthesia Plan ASA 3 My patient is approved for the Anesthesia Controlled Medication protocol when under care of a SECONDARY HISTORY TEACHER Planned anesthesia: General Team communication plan: oral ET tube Informed Consent: Discussed plan with SECONDARY HISTORY TEACHER. Anesthesia plan and risks discussed with patient. Consent and Attending signature: I and/or my designee have discussed the anesthesia plan, benefits, possible alternatives, parental presence at time of induction (if indicated), and clinically relevant risks that may include dental injury, unintentional awareness, and/or other complications. The patient and/or parent/legal guardian understand, and agree to proceed. All questions answered. documented in this encounter Plan of Treatment Upcoming Encounters Date Type Department Care Team (Late st Contact Info) Description 05/26/2024 1:30 PM PARTS SALES COUNTERPERSON Office Visit [facility] Ophthalmology [address], [address] [place] [address] Raphael Hernández MD [address] [facility] DEPT OPHTHALMOLOGY, [address] [place] [address] documented as of this encounter Procedures Procedure Name Priority Date/Time Associated Diagnosis Comments OK AN PROCEDURE PLACEHOLDER Routine 08/27/2020 9:04 AM CDT OK AN ELECTIVE ENDOTRACHEAL AIRWAY Routine 08/27/2020 9:04 AM CDT documented in this encounter Results * OK AN ELECTIVE ENDOTRACHEAL AIRWAY, OK AN PROCEDURE PLACEHOLDER (08/27/2020 9:04 AM CDT) Narrative Laure Salinas CRNA - 08/27/2020 9:04 AM CDT Laure Salinas CRNA ? 08/27/2020 ??9:06 AM Airway Patient location: OR Urgency: elective Indications for airway management: anesthesia and airway protection Difficult airway: no Staff: Placed by: SECONDARY HISTORY TEACHER: Laure Salinas CRNA Emergent airway documentation: Risks and benefits discussed: yes Consent obtained: yes Consent given by: patient Airway prep: Preoxygenated: yes Mask difficulty assessment: 1 - vent by mask Spontaneous ventilation during airway: absent Sedation level during airway: deep Final airway details: Final airway type: endotracheal airway Tube type: ETT ETT size: 7.0 mm Cuffed: yes Technique used for successful ETT placement: direct laryngoscopy Devices/Methods used in placement: intubating stylet and anterior pressure/BURP Insertion site: oral Blade type: Theodore Blade size: 4 Cormack-Lehane (direct): grade I - full view of glottis Cuff inflated with: air Placement verified by: auscultation and CO2 detection Airway secured with: silk tape Number of attempts: 1 us John Segura MD ANESTHESIA ORDERABLES Final R esult documented in this encounter Visit Diagnoses Not on filedocumented in this encounter Administered Medications Inactive Administered Medications - up to 3 most recent administrations Medication Order MAR Action Action Date Dose Rate Site ceFAZolin (ANCEF) injection intravenous, Administer over 3 Minutes, As needed, Starting on Sun08/27/20 at 0857, Anesthesia Intra-op Given 08/27/2020 8:57 AM CDT 2,000 mg dexAMETHasone (DECADRON) preservative free solution intravenous, Administer over 2 Minutes, As needed, Starting on Sun08/27/20 at 0920, Anesthesia Intra-op Given 08/27/2020 9:20 AM CDT 4 mg fentaNYL (SUBLIMAZE) preservative free injection 25 mcg 25 mcg, intravenous, Every 1 hour PRN, 1st line for pain, other, if allergic to Hydromorphone, Starting on Sun08/27/20 at 0937, For 3 doses, Recovery (GI), Notify MD of pain score greater than 4., Indications: PainIndications:Pain Given 08/27/2020 9:30 AM CDT 25 mcg Lactated Ringer's (LR) infusion 30 mL/hr, intravenous, Continuous, Starting on Sun08/27/20 at 0830, Pre-Procedure (GI) Rate/Dose Change 08/27/2020 9:29 AM CDT 700 mL/hr New Bag 08/27/2020 8:11 AM CDT 30 mL/hr 30 mL/hr lidocaine PF (XYLOCAINE) 10 mg/mL (1 %) preservative free injection intravenous, As needed, Starting on Sun08/27/20 at 0855, Anesthesia Intra-op Given 08/27/2020 8:55 AM CDT 5 mL metoclopramide (REGLAN) injection intravenous, Administer over 1 Minutes, As needed, Starting on Sun08/27/20 at 0920, Anesthesia Intra-op Given 08/27/2020 9:20 AM CDT 10 mg ondansetron (ZOFRAN) injection intravenous, Administer over 2 Minutes, As needed, Starting on Sun08/27/20 at 0915, Anesthesia Intra-op Given 08/27/2020 9:15 AM CDT 4 mg propofoL (DIPRIVAN) IV intravenous, As needed, Starting on Sun08/27/20 at 0855, Anesthesia Intra-op Given 08/27/2020 8:55 AM CDT 150 mg rocuronium (ZEMURON) injection intravenous, As needed, Starting on Sun08/27/20 at 0906, Anesthesia Intra-op Given 08/27/2020 9:06 AM CDT 30 mg succinylcholine syringe intravenous, As needed, Starting on Sun08/27/20 at 0855, Anesthesia Intra-op Given 08/27/2020 8:55 AM CDT 100 mg sugammadex (BRIDION) 100 mg/mL intravenous solution intravenous, As needed, Starting on Sun08/27/20 at 0923, Anesthesia Intra-op Given 08/27/2020 9:23 AM CDT 200 mg documented in this encounter Care Teams Advanced Quality Engineer Relationship Specialty Start Date End Date Ananth Mullen MD PCP - General Internal Medicine 04/21/20 documented as of this encounter
--- OUTSIDE RECORDS SUMMARY | 2024-05-24 10:50 | XMS_ITS | Encounter Summary ---
Author Organization [facility] Healthcare Address [address] [place] [address] Care Team Providers Care Wool Classer Name Role Phone Unavailable Primary Care Provider Unavailabl e Reason for Visit * Diagnostic Imaging (Routine) - Closed Specialty Diagnoses / Procedures Referred By Ambika t Referred To Contact Procedures Breast Imaging Screening Outside Reference Ofelia Naranjo NP [address] [facility] [phone] [place] [address] Phone: tel: fax: Referral ID Status Reason Start Date Expiration Date Visits Re quested Visits Authorized [id number] Closed 09/21/2022 10/21/2023 1 1 Encounter Details Date Type Department Care Team (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 [facility] [address], [address] [place] [address] Raphael Hernández MD [address] [facility] [facility] [address] [facility] [address] DEPT OPHTHALMOLOGY, [address] [place], [place] [id number] documented as of this encounter Procedures Procedure Name Priority Date/Time Associated Diagnosis Comments BREAST IMAGING MG SCREENING OUTSIDE REFERENCE Routine 02/24/2015 12:00 AM CDT documented in this encounter Results * Breast Imaging Screening Outside Reference (02/24/2015 12:00 AM CDT) Impressions [facility] - 09/21/2022 3:33 PM CDT These images are for Reference purposes only and have not been reviewed by [facility] Radiology. ??There will be no report generated by a [facility] Radiologist. Narrative [facility] - 09/21/2022 3:33 PM CDT EXAMINATION: ??Images For Reference Purposes Only us Ofelia Naranjo NP IMG MAMMO PROCEDURES Final Result [facility] documented in this encounter Visit Diagnoses Not on filedocumented in this encounter
--- OUTSIDE RECORDS SUMMARY | 2024-05-24 10:50 | XMS_ITS | Encounter Summary ---
Author Organization [facility] Address [address] [place] [address] Phone Care Team Providers Care Vehicle Dynamics Engineer Name Role Phone Ananth Mullen MD Primary Care Provider [phone] Encounter Details Date Type Department Care Team (Late st Contact Info) Description 03/11/2021 Telephone [facility] Gastroenterology [address] Office [address] [place] [address] Ledy Plaza, SCHOOL ATHLETIC DIRECTOR Social History Tobacco Use Types Packs/Day Years [...] on file Legal Sex Female 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 Phytopathologist called to offer to reschedule appointment. Patient declined reschedule, and said she will attend planned May return office visit. Phytopathologist obtained information and did not do an assessment. Phytopathologist sent information obtained to program Nurse Practitioner & Dr. Frausto. Patient stated IT'S BEEN A SLOW WEIGHT LOSS, BUT GOT ME BACK ON TRACK TO DRINKING MORE WATER BACK TO WORK. 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 I HAVE BEEN GETTING MY BEHAVIOR UNDER CONTROL. Patient reported I am REALLY PLEASED WITH HAVING HAD THE PROCEDURE, and very pleased with my results. I've lost 40 pounds, and everything has gone real good. I don't need to reschedule the 02/25 but I was surprised when it disappeared from [facility]. I do want to see him (Dr. Frausto) in May. Phytopathologist can do both, before and after 30 day visits, as a certified therapist/caregiver. Phytopathologist is not doing an assessment just obtaining information. Phytopathologist's visit will need to be signed off by one of the bariatric providers (Ken Frausto, or Ric). These can be telemedicine visits. THIS VISIT WAS COMPLETED BY PHONE. Visit must include the following, per [facility] data center engineer: 1. Weight = 234 pounds TODAY (03/11/21) 2. Mention the procedure ENDOSCOPIC REVISION TO PREVIOUS GASTRIC BYPASS 3. Has the patient had any occurrences: Readmissions = NO Reoperation/intervention = NO ED Visit = NO Outpatient IVF replacement = NO Wound infections (SSI) = NO UTI =NO PE/DVT = NO DE/heart issues = NO There were no readmissions, reoperation nor occurrences. PATIENT REPORTED SEVERAL TIMES DURING PHONE CONVERSATION, PATIENT FEELS MUCH HEALTHIER SINCE HAVING HAD ENDOSCOPIC REVISION PROCEDURE. The patient has the following conditions: STEVE: NO GERD:NO, IT'S BEEN MUCH BETTER SINCE REVISION, ISSUES THAT HAD RESTARTED HAVE BEEN RESOLVED. Hypertension: NO Hyperlipidemia: B/F REVISION I TOOK CHOLESTEROL MEDS, BUT SINCE SUCCESS I HAVEN'T BEEN TAKING ANY CHOLESTEROL MEDICATIONS;WE'RE GOING TO RECHECK LEVELS IN MAY AT MY PRIMARY CARE DOCTOR (DR. GHOSH), ALSO MY BLOOD PRESSURE IS DOWN TO 110/75. Diabetes: NO documented in this encounter Plan of Treatment Upcoming Encounters Date Type Department Care Team (Late st Contact Info) Description 05/26/2024 1:30 PM DISTANCE EDUCATION FACULTY LIAISON Office Visit [facility] Ophthalmology [address] Floor, [address] [place] [address] Raphael Hernández MD [address] DEPT OPHTHALMOLOGY, [facility] [address] [place], [place] [id number] documented as of this encounter Visit Diagnoses Not on filedocumented in this encounter Care Teams Vehicle Dynamics Engineer Relationship Specialty Start Date End Date Ananth Mullen MD PCP - General Internal Medicine 04/21/20 documented as of this encounter
--- OUTSIDE RECORDS SUMMARY | 2024-05-24 10:50 | XMS_ITS | Encounter Summary ---
Author Organization [facility] Address [address] [place] [address] Phone Care Team Providers Care Java Front End Web Developer Name Role Phone Ananth Mullen MD Primary Care Provider [phone] Reason for Visit * Reason Onset Date Comments [employer]mith received patient's Personal Responsiblility forms f 07/23/2020 Anglesmith sent patient Next S teps and readiness for change signature request, a copy of personalized patient protocol including appointments, behavior coaching groups, and important phone numbers; instructions for 08-27-20 procedure at [facility], and request for pages 1 & 2 of virtual consent and liability form initials. Encounter Details Date Type Department Care Team (Latest Contact Info) Description 07/23/[address] [facility] Gastroenterology [address] [place] [address] Ledy Plaza, GRAVEL TRUCK DRIVER [employer]mith received patient's Personal Responsiblility forms f (Anglesmith sent patient Next Steps and readiness for change signature request, a copy of personalized patient protocol including appointments, behavior coaching groups, and important phone numbers; instructions for 08-27-20 procedure at [facility], and request for pages 1 & 2 of virtual consent and liability form initials. 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 Anglesmith sent patient Next Steps and readiness for change signature request, a copy of personalized patient protocol including appointments, behavior coaching groups, and important phone numbers; instructions for 08-27-20 procedure at [facility], and request for pages 1 & 2 of virtual consent and liability form initials. From: Ledy Plaza Sent: Thursday, July 23, 2020 4:18 PM To: September Abrahan <> Cc: Mandy Hector < > Subject: [Secure] NEXT STEPS - PLEASE SIGN AND RETURN; ALSO -PLEASE INITIAL AND RETURN P1 & P2 OF VIRTUAL INFORMED CONSENT Dear September, Please find attached and below, a list of Next steps with request for your signature and date at bottom of page acknowledging readiness for change and reason for procedure is to stop weight regain; a draft of your personalized patient appointment protocol for your review and approval; your pre- registration instructions for your procedure (note: please have your insurance card in-hand when you call number in red - one week pre-procedure.) Also, I have attached a copy of the Virtual consent form. I still need the first 2 pages with your initials on bottom right corner. Thank you forsending the other documents earlier today. Sincerely, Ledy [phone] Endoscopic Revision Procedure Behavioral Progress Note - Behavior Supervisor/Coordinator Provided Protocol at First ROV post placement Cate Gauthier 62 Sb entered 90-day bundled episode partial cosmetic package Patient is an [place] resident. Protocol for Non-Surgical BARIATARIC ENDOSCOPY Program Calorie Target from PROGRAM DIETITIAN ELIZABETH SIN = Calories per day TBD Bill PATIENT's insurance for ROVs, AFTER 90 DAY GLOBAL PERIOD. Return office visits (ROVs) are with MD, or APPELLATE COURT JUDGE, and Behavior Supervisor Patient wants PRIMARILY in-person visits. Patient is an [place] resident. ROSA Hester Pre-Procedure Exam /Initial Office Visit [facility] Thursday, April 23, 2020 9:30AM Dr. Frausto ESOPHAGOGASTRODUODENOSCOPY [facility] ENDO SUITE Sunday, May 31, 2020 9:30AM ELIZABETH SIN NUTRITIONAL Evaluation with program Dietitian - billed to patient's insurance or out of pocket. RevisionEdu [facility] Monday, July 27, 2020 [facility] for Pre-operative Assessment and Planning (CPAP) pre-testing Monday, August 24, 2020 1:30pm Arrive by 1:15pm to CPAP/ pre-testing office in [facility] Required COVID TESTING REQUIRED COVID TESTING [facility] Monday, August 24, 2020 AFTER PRE-TESTING VISIT go to [facility] Testing site Dr. Frausto Endoscopic Revision Procedure @ [facility] Thursday, August 27, 2020 8:30AM Arrive with C++ Quant Developer to [facility] by 7:30am ROSA Hester 1 week post revision procedure visit -[Obesity E66.0] 90 day global -do not bill insurance IN PERSON VISIT Sunday, September 06, 2020 9:30AM IN- PERSON [address] [facility] [address] ROSA Hester 4-5 weeks post revision procedure visit; [Obesity E66.0] 90 day global -do not bill insurance tele health Sunday, September 27, 2020 9:30AM [facility] TO COMPLETE E--CHECK-IN VIA MY CHART DR. FRAUSTO/ MANDY HECTOR NP 12weeks post procedure visit; [Obesity E66.0] 90 day global - do not bill insurance IN-PERSON Thursday, November 19, 2020 1PM MEDICAL OFFICE BUILDING [address] [facility] [address] DR. FRAUSTO / Radha HECTOR NP 26weeks post-revision procedure;[Obesity E66.9]; Bill to patient's insurance IN-PERSON Thursday, February 25, 2021 1P MEDICAL OFFICE BUILDING [address] [facility] [address] DR[address] JETT HECTOR NP 38 weeks post-revision procedure;[Obesity E66.9]; Bill to patient's insurance IN-PERSON Thursday, May 20, 2021 [facility] MEDICAL OFFICE BUILDING [address] [facility] [address] [address] JETT HECTOR NP 52 weeks post-revision procedure;[Obesity E66.9]; Bill to patient's insurance IN-PERSON Thursday, August 26, 2021 [facility] MEDICAL OFFICE BUILDING [address] [facility] [id number] [address] JETT HECTOR NP 2 years post-revision procedure;[Obesity E66.9]; Bill to patient's insurance IN-PERSON Thursday, August 25, 2022 [facility] MEDICAL OFFICE BUILDING [address] [facility] [id number] Ledy Behavior Coaching Groups sessions with thera-LINK thera-LINK behavior coaching sessions [facility] Month 1 Sunday, September 08, 2020 6pm Month 1 Monday, September 14, 2020 12pm Month 1 , September 23, 2020 11:30am Month 2 Sunday, October 06, 2020 6PM Month 2 Sunday, October 11, 2020 4pm Month 2 , October 21, 2020 11:30am Month 3 Sunday, November 03, 2020 6PM Month 3 , November 11, 2020 11:30am Month 3 Sunday, November 23, 2020 12pm Month 4 Sunday, December 08, 2020 6PM The other 2 groups are TBD Time TBD Month 5 Tuesday, January 05, 2021 6PM The other 2 groups are TBD Time TBD Month 6 Tuesday, February 09, 2021 6PM The other 2 groups are TBD Time TBD Month 7 Tuesday, March 09, 2021 6PM The other 2 groups are TBD Time TBD Month 8 Tuesday, April 06, 2021 6PM The other 2 groups are TBD Time TBD Month 9 Tuesday, May 04, 2021 6PM The other 2 groups are TBD Time TBD Month Tuesday, June 08, 2021 6PM The other 2 groups are TBD Time TBD Month Tuesday, July 06, 2021 6PM The other 2 groups are TBD Time TBD Sunday, August 03, 2021 6PM The other 2 groups are TBD Time TBD Dietitian Elizabeth Sin's phone number [phone] Nurse Practitioner Mandy Zandra's phone number [phone] Coordinator / Behavior Supervisor Ledy Plaza's phone number [phone] Cate Gauthier's phone number [phone] [email or web address] email initialed & signed 04-13-20 GI Fellow for urgent needs after regular business hours on-call [phone] Nights and Weekends NEXT STEPS: ENDOSCOPIC REVISION PROCEDURE, [facility] in [place], Gastroenterology Bariatric Endoscopy Clinic Call & Complete: ??? Thank you for completing your Lab work today 07/23/20 @ Accountable. Patient???s responsibility to bill to insurance, or pay out of pocket for these lab tests. To make Facility pre-payment, either call: ??? Emma Acosta via [phone], Mon.-Fri. 8am - 3pm or Fernando Garcia via [phone], Mon.-Fri.7am-1:30pm o Patient will make a Facility pre-payment in the amount of 20% of total facility fees. 20% =$1,460no later than 08/13/20 to [facility]. At same time of patient calling in pre-payment deposit, patient will arrange the consecutive monthly payment details, for post-procedure, monthly consecutive payments to [facility] (re: to complete the remaining $5,840 balance.) Patient is to prepay 20% to facility, and then pay monthly consecutive remaining fees as part of [facility] payment plan-post procedure. ??? Patient will call [facility] Patient Billing Services, at first convenience to make pre-payment for below fees: o Patient Billing Services team will accept a phone payment of $5,060, by patient making payment to: [phone] - Patient will pre-pay [facility] $616. Pre-procedure - Patent will pre-pay [facility] $4444 fees Pre-procedure ??? Sunday07/27/20 @2pm completing Nutritional Evaluation with Elizabeth Sin via [employer] o Patient???s responsibility to bill to insurance, or pay out of pocket for this visit. ??? Sunday08/24/20 @ 1:30pm with 1:15pm arrival to [facility] for Center for Pre-operative Assessment and Planning Visit in pre- testing [email or web address]/Locations-Directions/[facility]-Main-Entrance o Patient???s responsibility to bill to insurance, or pay out of pocket for this visit. ??? Sunday08/27/20 @ 8:30am Endoscopic Revision Procedure with Dr. Frausto in [facility] endoscopy suite, patient will arrive by 7:30am with charter coach driver for discharge. [email or web address] [email or web address]-Edzrpsk-[email or web address]/Locations-Directions/[facility] ??? Sunday09/06/20 9:30am One week return office visit with program Nurse Practitioner Mandy Hector,IN-Person, Medical Office Building [address], located at [address] [place] [address] h [email or web address] ??? Sunday09/27/20 @ 9:30am Week 5-6 post procedure visit with SOLVENT PROCESS EXTRACTOR OPERATOR, via [employer], complete e-check-in via active My Chart under appointments. ??? Sunday11/19/20 @ 1pm Week 12 post-procedure visit with Dr. Frausto, via IN - Person, [facility], [email or web address], [address] [place] [address]. [email or web address] ??? BUNDLED EPISODE WILL BE CREATED WITH THE FIRST 90 DAYS IS GLOBAL PERIOD - We will not Bill PATIENT FOR THE RETURN OFFICE VISITS, in the first 90 days post-procedure. ??? Remaining return office visits will be held in-person, on Fridays in Dr. Jett sevilla; as patient is an [place] resident. [email or web address] Thank you for creating your profile on [employer] 07/22/20 Ask questions! All Medical Questions, call Mehreen Hector [phone]; Ask questions! All program, financial, and behavioral Questions, call Ledy Plaza [phone] READINESS FOR CHANGE AND ABOVE NEXT STEPS HAVE BEEN REVIEWED & DISCUSSED. Readiness is important, so patent has realistic expectations. The goal of endoscopic revision procedure is for patient tostop weight regain. Please provide your signature & date below, and then return to Ledy? teofilo attention: Patient???s signature: Date: ENDOSCOPIC REVISION PROCEDURE at [facility] Name _CATE GAUTHIER (64) Doctor: ___Srinath Frausto MD You are scheduled for an ENDOSCOPIC REVISION PROCEDURE VIA ENDOSCOPY at [facility] ([address] [place] [address] ) on August_Sunday at 8:30AM ( ). Please arrive to the Hospital Front Lobby Entrance Be here at: 7:30AM WITH CULL GRADER (Free gaming worker parking) Please pre-register one week before your scheduled procedure by calling [phone] or [phone] option 1. Have your insurance information ready when you call. You must have a responsible adult with you to drive and assist you home. You will not be able to drive after the test, due to the medications you will receive that will make you sleepy and comfortable. Your test will be canceled if we cannot speak to the person driving you home. This important test requires careful preparation. Patients with diabetes: DO NOT take any insulin or diabetic medication the morning of the test unless instructed by your doctor. Patients taking blood thinners such as Coumadin (Warfarin) or Plavix: Please call us at [phone] as soon as possible with the name of the doctor who ordered your anticoagulation medication . You must have a responsible adult with you to drive and assist you home. You will not be able to drive after the test, due to the medications you will receive that will make you sleepy and comfortable. Your test will be canceled if we cannot speak to the person driving you home. This important test requires careful preparation. Patients with diabetes: DO NOT take any insulin or diabetic medication the morning of the test unless instructed by your doctor. Patients taking blood thinners such as Coumadin (Warfarin) or Plavix: Please call us at [phone] as soon as possible with the name of the doctor who ordered your anticoagulation medication . From: Ledy Plaza Sent: Thursday, July 23, 2020 2:26 PM To: September Abrahan < > Subject: RE: signed forms Thank you Cate, I still need the first 2 pages of the [employer] (3 page form), to include your initials on the bottom of the 1st & 2nd pages - reflecting you? ve read these pages. I appreciate you completed these so quickly! Thank you, Ledy From: September Abrahan < > Sent: Thursday, July 23, 2020 2:20 PM To: Ledy Plaza < > Subject: signed forms * External Email - Caution * Ledy, I absolutely appreciate your organization and efficiency. Thank you for how you do your job. I have attached the 3 forms that you needed dated, signed and initialed. (I did not fill in the topportion of the two payment forms. I had my labs done this morning. I hope to contact the hospital (billing department) today or earlynext week and set up for payment. Have a great weekend. Thank you, September NICAL SERVICES ASSISTANT documented in this encounter Plan of Treatment Upcoming Encounters Date Type Department Care Team (Late st Contact Info) Description 05/26/2024 1:30 PM TECHNICAL SERVICES ASSISTANT Office Visit [facility] Ophthalmology [address] Floor, [address] [place] [address] Raphael Hernández MD [address] [facility] DEPT OPHTHALMOLOGY, [address] [place] [address] documented as of this encounter Visit Diagnoses Not on filedocumented in this encounter Care Teams Java Front End Web Developer Relationship Specialty Start Date End Date Ananth Mullen MD PCP - General Internal Medicine 04/21/20 documented as of this encounter
--- OUTSIDE RECORDS SUMMARY | 2024-05-24 10:50 | XMS_ITS | Encounter Summary ---
Author Organization [facility] Healthcare Address [address] [place] [address] Care Team Providers Care Insolvency Practitioner Name Role Phone Unavailable Primary Care Provider Unavailabl e Reason for Visit * Diagnostic Imaging (Routine) - Closed Specialty Diagnoses / Procedures Referred By Ambika t Referred To Contact Procedures Breast Imaging Screening Outside Reference Ofelia Naranjo NP [address] [facility] [phone] [place] [address] Phone: tel: fax: Referral ID Status Reason Start Date Expiration Date Visits Re quested Visits Authorized [id number] Closed 09/21/2022 10/21/2023 1 1 Encounter Details Date Type Department Care Team ([facility] st Contact Info) Description 01/30/2019 Hospital Encounter [facility] [address] [place] [id number] Social History Tobacco Use Types Packs/Day Years [...] on file Legal Sex Female 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 Floor, [address] [place] [address] Raphael Hernández MD [address] DEPT OPHTHALMOLOGY, [address] [place], [place] [id number] documented as of this encounter Procedures Procedure Name Priority Date/Time Associated Diagnosis Comments BREAST IMAGING MG SCREENING OUTSIDE REFERENCE Routine 01/30/2019 12:00 AM CDT documented in this encounter Results * Breast Imaging Screening Outside Reference (01/30/2019 12:00 AM CDT) Impressions [facility] - 09/21/2022 8:32 AM CDT These images are for Reference purposes only and have not been reviewed by [facility] Radiology. ??There will be no report generated by a [facility] Radiologist. Narrative [facility]MO[facility] - 09/21/2022 8:32 AM CDT EXAMINATION: ??Images For Reference Purposes Only us Ofelia Naranjo SUPPLY CHAIN ASSISTANT IMG MAMMO PROCEDURES Final Result [facility] documented in this encounter Visit Diagnoses Not on filedocumented in this encounter
--- OUTSIDE RECORDS SUMMARY | 2024-05-24 10:50 | XMS_ITS | Encounter Summary ---
Author Organization [facility] Healthcare Address [address] [place] [address] Care Team Providers Care Shipwright Name Role Phone Ananth Mullen MD Primary Care Provider [phone] Reason for Visit * Diagnostic Imaging (Routine) - Closed Specialty Diagnoses / Procedures Referred By Contac t Referred To Contact Procedures Breast Imaging Screening Outside Reference Ofelia Naranjo NP [address] [facility] [phone] [place] [address] Phone: tel: fax: Referral ID Status Reason Start Date Expiration Date Visits Re quested Visits Authorized [id number] Closed 09/21/2022 10/21/2023 1 1 Encounter Details Date Type Department Care Team (Latest Contact Info) Description 09/07/2022 - 09/07/2022 11:59 PM CDT Hospital Encounter [facility]) [address] [place] [address] Discharge Disposition: Discharge to home or self [...] on file 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 [facility] 2nd Floor, [address] [place] [address] Raphael Hernández MD [address] [facility] DE[facility] OPHTHALMOLOGY, [address] [place] [address] documented as of this encounter Procedures Procedure Name Priority Date/Time Associated Diagnosis Comments BREAST IMAGING MG SCREENING OUTSIDE REFERENCE Routine 09/07/2022 12:00 AM CDT documented in this encounter Results * Breast Imaging Screening Outside Reference (09/07/2022 12:00 AM CDT) Impressions RAD_MAMMO_[facility] - 09/21/2022 8:31 AM CDT These images are for Reference purposes only and have not been reviewed by [facility]. ??There will be no report generated by a [facility] Radiologist. Narrative RAD_MAMMO_[facility] - 09/21/2022 8:31 AM CDT EXAMINATION: ??Images For Reference Purposes Only us Ofelia Naranjo COUNTER HOP IMG MAMMO PROCEDURES Final Result [facility]_MAMMO[facility] documented in this encounter Visit Diagnoses Not on filedocumented in this encounter Care Teams Shipwright Relationship Specialty Start Date End Date Ananth Mullen MD PCP - General Internal Medicine 04/21/20 documented as of this encounter
--- OUTSIDE RECORDS SUMMARY | 2024-05-24 10:50 | XMS_ITS | Encounter Summary ---
Author Organization [facility] Healthcare Address [address] [place] [address] Care Team Providers Care Assembler Latches And Springs Name Role Phone Unavailable Primary Care Provider Unavailabl e Reason for Visit * Diagnostic Imaging (Routine) - Closed Specialty Diagnoses / Procedures Referred By Ambika t Referred To Contact Procedures Breast Imaging Screening Outside Reference Ofelia Naranjo NP [address] [facility] [phone] [place] [address] Phone: tel: fax: Referral ID Status Reason Start Date Expiration Date Visits Re quested Visits Authorized [id number] Closed 09/21/2022 10/21/2023 1 1 Encounter Details Date Type Department Care Team ([facility] st Contact Info) Description 12/13/2016 Hospital Encounter [facility]) [address] [place] [phone] Social History Tobacco Use Types Packs/Day Years [...] on file Legal Sex Female 4:27 PM FORKLIFT SUPERVISOR Gender Identity Not on file Sexual Orientation Not on file documented as of this encounter Plan of Treatment Upcoming Encounters Date Type Department Care Team (Late st Contact Info) Description 05/26/2024 1:30 PM FORKLIFT SUPERVISOR Office Visit [facility] Ophthalmology [address] [facility] [address]nd Floor, [address] [place] [address] Raphael Hernández MD [address] [facility] [address] DEPT OPHTHALMOLOGY, [address] [place], [place] [phone] documented as of this encounter Procedures Procedure Name Priority Date/Time Associated Diagnosis Comments BREAST IMAGING MG SCREENING OUTSIDE REFERENCE Routine 12/13/2016 12:00 AM CDT documented in this encounter Results * Breast Imaging Screening Outside Reference (12/13/2016 12:00 AM CDT) Impressions RAD_MAMMO[facility] - 09/21/2022 8:32 AM CDT These images are for Reference purposes only and have not been reviewed by [facility]. ??There will be no report generated by a [facility] Radiologist. Narrative RAD_MAMMO_[facility] - 09/21/2022 8:32 AM CDT EXAMINATION: ??Images For Reference Purposes Only us Ofelia Naranjo NP IMG MAMMO PROCEDURES Final Result [facility]MAMMO[facility] documented in this encounter Visit Diagnoses Not on filedocumented in this encounter
--- OUTSIDE RECORDS SUMMARY | 2024-05-24 10:50 | XMS_ITS | Encounter Summary ---
Author Organization [facility] Address [address] [place] [address] Phone Care Team Providers Care Operator Electronic Warfare Name Role Phone Ananth Mullen MD Primary Care Provider [phone] Encounter Details Date Type Department Care Team (Late st Contact Info) Description 07/22/2020 Telephone [facility] Gastroenterology [address] [facility] [address] [place] [address] Ledy Plaza, FARM OPERATIONS MANAGER Social History Tobacco Use Types Packs/Day Years [...] on file Legal Sex Female 4:27 PM PHOTORADIO OPERATOR Gender Identity Not on file Sexual Orientation Not on file documented as of this encounter Miscellaneous Notes * Telephone Encounter - Ledy Plaza, DIRECTOR BUILDING - 07/22/2020 3:07 PM PHOTORADIO OPERATOR 07/22/20 2:24pm Patient called and discussed with social work assistant, desire to move forward to have Endoscopic Revision with Dr. Frausto at [facility], and CPAP at [facility], and COVID test at [facility], if can't do at [facility] during pre-test. Drawer In Hand will call back when all is scheduled. 07/22/20 3:10pm Drawer In Hand called and reached patient. Discussed dates, times, and locations for procedure, pre-testing, Nutritional Evaluation, COVID testing, and lab work. Discussed patient not billing insurance, required paperwork pre- register 1 wk pre-procedure. From: Ledy Plaza Sent: July 5:22 PM To: Cate Abrahan <[email or web address]> Cc: Sharon De Paz < > Subject: FOLLOW-UP DETAILS from today's conversations September, You are receiving this e-mail via UNENCRYPTED e-mail, per your preference indicated on Musicraiser Authorization form dated 04/13/20. I will send tomorrow: NEXT STEPS & Readiness for Change sheet -requiring your signature and date; procedure pre-registration instructions, a personalized patient protocol including return office visit appointments for one year post- procedure, list of upcoming behavior coaching groups scheduled,location of COVID testing site for 08/24/20, and important program contact numbers. See attached forms [facility] Personal Responsibility forms require your signature, initials, date, and your indication to bill or not to bill insurance. One Virtual informed consent and liability waiver: which needs your initials on the first & second pages, and your signature twice on the third page. [facility] customs compliance manager, has confirmed today, that [facility] is willing to offer you the 20% pre- payment pre-procedure, with consecutive payments due post procedure monthly. Below are the details including dates for prepayment. Patient may call [facility] to make pre-payment, after returning signed Personal Responsibility forms to Ledy via fax [phone] or e-mail. To make Facility pre-payment, either call: rebekah Acosta via [phone], Mon.-Fri. 8am - 3pm or Fernando Garcia via [phone], Mon.-Fri. 7am-1:30pm o Patient will make a Facility pre-payment in the amount of $1,460 no later than 08/13/20 to [facility]. At same time of patient calling in pre-payment deposit, patient will arrange the consecutive monthly payment details, for post-procedure, monthly consecutive payments to [facility] (re: to complete the remaining $5,840 balance.) patient would like to prepay 20% to facility, and then pay monthly consecutive remaining fees as part of [facility] payment plan- post procedure Patient will call patient billing services team at her earliest convenience to make this payment of$5060, by calling [phone] o Patient will pre-pay [facility] $616. Pre-procedure o Patent will pre-pay [facility] $4444 fees Pre-procedure Below are some of the details we discussed. ??? Sunday07/23/20 completing lab work at [facility] ??? Sunday07/27/20 @2pm completing Nutritional Evaluation with Elizabeth Raines via [facility] ??? Sunday08/24/20 @ 1:30pm with 1:15pm arrival to [facility] for Center for Pre-operative Assessment and Planning Visit in pre- testing [email or web address]/Locations-Directions/[facility]-Main-Entrance ??? Sunday08/27/20 @ 8:30am Endoscopic Revision Procedure with Dr. 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 [email or web address].[facility].[email or web address]/Pat gtmm-Mbwdkvh-Uurrlslhnrh/Locations-Directions/[facility] -Main-Entrance ??? Sunday09/06/20 9:30am One week return office visit with program Nurse Practitioner Sharon De Paz,IN-Person, Medical Office [address], located at [address] [place] [address] h [email or web address].[email or web address] ??? Sunday09/27/20 @ 9:30am Week 5-6 post procedure visit with [employer], via [employer], complete e-check-in via active My Chart under appointments. ??? Sunday11/19/20 @ 1pm Week 12 post-procedure visit with Dr. Frausto, via [place] - Person, [facility], [email or web address], [address] [place] [address]. [email or web address] ??? BUNDLED EPISODE WILL BE CREATED WITH THE FIRST 90 DAYS IS GLOBAL PERIOD - DO NOT BILL PATIENT FOR THESE RETURN OFFICE VISITS. ??? Remaining return office visits will be held in-person, as on Fridays in Dr. Frausto???s clinics, as patient is an [place] resident. [email or web address] I hope you have a nice evening, and I will keep an eye out for your completed paperwork. Sincerely, Ledy Plaza MS, DIRECTOR BUILDING Bariatric Endoscopy Coordinator / Behavior Operations And Maintenance Specialist [facility] [place] Department of Internal Medicine - Gastroenterology [address] [place] [address] [address] [place] [address] Office ORADIO OPERATOR documented in this encounter Plan of Treatment Upcoming Encounters Date Type Department Care Team (Late st Contact Info) Description 05/26/2024 1:30 PM PHOTORADIO OPERATOR Office Visit [facility] Ophthalmology [address] [facility] 2nd Floor, [address] [place] [address] Raphael Hernández MD [address] [facility] DEPT OPHTHALMOLOGY, [address] [place] [address] documented as of this encounter Visit Diagnoses Not on filedocumented in this encounter Care Teams Operator Electronic Warfare Relationship Specialty Start Date End Date Ananth Mullen MD PCP - General Internal Medicine 04/21/20 documented as of this encounter
== END 2024-05-19 15:42 | disposition home or self-care (01) ==
PROVIDERS: PCP Internal Medicine; Visit Provider Surgery
PROC: 0FT44ZZ Resection of Gallbladder, Percutaneous Endoscopic Approach (ICD-10-PCS; CPT 47562; principal; 2024-05-19 13:30)
DX: K80.10 Calculus of gallbladder with chronic cholecystitis without obstruction (principal); G47.33 Obstructive sleep apnea (adult) (pediatric); E78.5 Hyperlipidemia, unspecified; K21.9 Gastro-esophageal reflux disease without esophagitis; F32.A Depression, unspecified; Z98.84 Bariatric surgery status; E66.01 Morbid (severe) obesity due to excess calories; Z68.42 Body mass index [BMI] 45.0-49.9, adult
CPT/HCPCS: 47562; 88304; 93005; A9270; J0690; J1596; J1885; J2003; J2250; J2405; J2704; J2710; J3010; J7030; J7120

== ENCOUNTER 2024-11-17 12:22 | Outpatient (CLI) | payer OTHER, SELFPAY ==
--- NOTE | ~2024-11-17 | MM_ITS ---
EXAMINATION: MM screening [facility] BI w erasmo HISTORY: Screening TECHNIQUE: Craniocaudal and mediolateral oblique 3-D tomosynthesis images were obtained and synthetic 2-D images were generated. CAD analysis was submitted and interpreted. COMPARISON: Comparison to multiple prior studies sequentially, with oldest reviewed study dated 02/24. BREAST PARENCHYMAL COMPOSITION: Not Dense: The breasts are almost entirely fatty. FINDINGS: Stable benign-appearing low-density mass upper outer quadrant of the left breast, anterior third. There is no evidence of suspicious mass, calcification, or architectural distortion to suggest malignancy in either breast. There has been no suspicious interval change. IMPRESSION: 1. No mammographic evidence of malignancy. 2. Recommend routine screening mammography in one year. BI-RADS Category 2: Benign finding(s). Reviewed, dictated and finalized at location A.
--- OUTSIDE RECORDS SUMMARY | 2024-11-17 13:16 | XMS_ITS | Encounter Summary ---
Author Organization [facility] Healthcare Address [address] [place] [address] Care Team Providers Care Tar Leveler Name Role Phone Unavailable Primary Care Provider Unavailabl e Reason for Visit * Diagnostic Imaging (Routine) - Closed Specialty Diagnoses / Procedures Referred By Ambika t Referred To Contact Procedures Breast Imaging Screening Outside Reference Ofelia Naranjo NP [address] [facility] [phone] [place] [address] Phone: tel: fax: Referral ID Status Reason Start Date Expiration Date Visits Re quested Visits Authorized [id number] Closed 09/21/2022 10/21/2023 1 1 Encounter Details Date Type Department Care Team ([facility] st Contact Info) Description 04/08/2012 Hospital Encounter [facility] Radiology [facility]) [facility] [place], [place] [id number] Social History Tobacco Use Types Packs/Day Years [...] on file Legal Sex Female 4:27 PM MUSICAL INSTRUMENT SUPERVISOR Gender Identity Not on file Sexual Orientation Not on file documented as of this encounter Functional Status documented as of this encounter Plan of Treatment Not on file documented as of this encounter Procedures Procedure Name Priority Date/Time Associated Diagnosis Comments BREAST IMAGING MG SCREENING OUTSIDE REFERENCE Routine 04/08/2012 12:00 AM MUSICAL INSTRUMENT SUPERVISOR documented in this encounter Results * Breast Imaging Screening Outside Reference (04/08/2012 12:00 AM MUSICAL INSTRUMENT SUPERVISOR) Impressions RAD_MAMMO_[facility] - 09/21/2022 3:33 PM CDT These images are for Reference purposes only and have not been reviewed by [facility]. There will be no report generated by a [facility] Radiologist. Narrative RAD_MAMMO_BJ - 09/21/2022 3:33 PM CDT EXAMINATION: Images For Reference Purposes Only us Ofelia Naranjo HAT LINING PASTER IMG MAMMO PROCEDURES Final Result [facility]_MAMMO[facility] documented in this encounter Visit Diagnoses Not on filedocumented in this encounter
--- OUTSIDE RECORDS SUMMARY | 2024-11-17 13:16 | XMS_ITS | Encounter Summary ---
Author Organization [facility] Healthcare Address [address] [place] [address] Care Team Providers Care Laborer Syrup Machine Name Role Phone Unavailable Primary Care Provider Unavailabl e Reason for Visit * Diagnostic Imaging (Routine) - Closed Specialty Diagnoses / Procedures Referred By Ambika t Referred To Contact Procedures Breast Imaging Screening Outside Reference Ofelia Naranjo NP [address] [facility] [phone] [place] [address] Phone: tel: fax: Referral ID Status Reason Start Date Expiration Date Visits Re quested Visits Authorized [id number] Closed 09/21/2022 10/21/2023 1 1 Encounter Details Date Type Department Care Team ([facility] st Contact Info) Description 12/13/2016 Hospital Encounter [facility] Radiology [facility]) [address] [place] [phone] Social History Tobacco Use Types Packs/Day Years [...] on file 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 There will be no report generated by a [facility] Radiologist. Narrative RAD_MAMMO_BJ - 09/21/2022 8:32 AM CDT EXAMINATION: Images For Reference Purposes Only us Ofelia Naranjo RULING MACHINE SET UP OPERATOR IMG MAMMO PROCEDURES Final Result RAD_MAMMO[facility] documented in this encounter Visit Diagnoses Not on filedocumented in this encounter
--- OUTSIDE RECORDS SUMMARY | 2024-11-17 13:16 | XMS_ITS | Encounter Summary ---
Author Organization [facility] Healthcare Address [address] [place] [address] Care Team Providers Care Ceramic Chemist Name Role Phone Unavailable Primary Care Provider Unavailabl e Reason for Visit * Diagnostic Imaging (Routine) - Closed Specialty Diagnoses / Procedures Referred By Ambika t Referred To Contact Procedures Breast Imaging Screening Outside Reference Ofelia Naranjo NP [address] [facility] [phone] [place] [address] Phone: tel: fax: Referral ID Status Reason Start Date Expiration Date Visits Re quested Visits Authorized [id number] Closed 09/21/2022 10/21/2023 1 1 Encounter Details Date Type Department Care Team ([facility] st Contact Info) Description 01/30/2019 Hospital Encounter [facility] Radiology [facility]) [facility] [place], [place] [id number] Social History Tobacco Use Types Packs/Day Years [...] on file 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 There will be no report generated by a [facility] Radiologist. Narrative RAD_MAMMO_BJ - 09/21/2022 8:32 AM CDT EXAMINATION: Images For Reference Purposes Only us Ofelia Naranjo VACATION GUIDE IMG MAMMO PROCEDURES Final Result RAD_MAMMO[facility] documented in this encounter Visit Diagnoses Not on filedocumented in this encounter
--- OUTSIDE RECORDS SUMMARY | 2024-11-17 13:16 | XMS_ITS | Encounter Summary ---
Author Organization [facility] Address [address] [place] [address] Phone Care Team Providers Care Senior Contracts Administrator Name Role Phone Ananth Mullen MD Primary Care Provider [phone] Encounter Details Date Type Department Care Team (Late st Contact Info) Description 04/13/2020 Orders Only [facility] Scanning, Provider Social History Tobacco Use Types Packs/Day Years Used Date Smoking Tobacco: Never Assessed Comments Unknown Sex and Gender Information Value Date Recorded Sex Assigned at Not on file Legal Sex Female 4:27 PM DATABASE TECHNICIAN Gender Identity Not on file Sexual [...] on filedocumented in this encounter Care Teams Senior Contracts Administrator Relationship Specialty Start Date End Date Ananth Mullen MD PCP - General Internal Medicine 04/21/20 documented as of this encounter
--- OUTSIDE RECORDS SUMMARY | 2024-11-17 13:16 | XMS_ITS | Referral Summary ---
Author Organization [facility] Address [address] [facility] [place] [address] Care Team Providers Care Vp Communications Name Role Phone Ananth Mullen MD Primary Care Provider [phone] Encounters Date Type Department Care Team Description 09/18/2024 9:15 AM CDT Office Visit [facility] Ophthalmology [address] [facility] 6th [place] [address] Raphael Hernández MD Chalazion of left upper eyelid (Primary Dx) 09/03/2024 Telephone [facility] Ophthalmology [address] [place] [address] Raphael Hernández MD from Last 3 Months [...] (07/22/2020): Added automatically from request for surgery [id number] Arthritis 04/27/2020 History of Lisha-en-Y gastric bypass 04/27/2020 Heartburn 04/23/2020 Overview (04/23/2020): Added automatically from request for surgery [id number] Weight gain following gastric bypass surgery Overview (04/23/2020): Added automatically from request for surgery [id number] Preoperative examination 04/23/2020 Overview (04/23/2020): Added automatically from request for surgery [id number] Hx of hysterectomy 04/27/2004 Social History Tobacco [...] on file Legal Sex Female 4:27 PM JAILOR Gender Identity Not on file Sexual Orientation Not on file Last Filed Vital Signs Vital Sign Reading Time Taken Comments Blood Pressure 118/82 11/19/2020 12:58 PM CDT Pulse 79 11/19/2020 12:58 PM CDT Temperature 36.7 C (98.1 F) 11/19/2020 12:58 PM CDT Respiratory Rate 15 08/27/2020 11:20 AM CDT Oxygen Saturation 96% 08/27/2020 11:20 AM CDT Inhaled Oxygen Concentration - - Weight 112.5 kg (248 lb) 10/03/2022 7:40 AM CDT Height 157.5 cm (5' 2) 10/03/2022 7:40 AM CDT Body Mass Index 45.36 10/03/2022 7:40 AM CDT Plan of Treatment Not on file Procedures Procedure Name Priority Date/Time Associated Diagnosis [...] OVERALL FINAL ASSESSMENT: BI-RADS CATEGORY 1: Negative. Procedure Note Maria George MD - 11/01/2023 [...] Relevant to Health Maintenance Insurance CHOICE PLUS CHOICE PLUS Advance Directives For more information, please contact: [phone] * Full Code (Latest Code Status on File) Date Activated Date Inactivated Comments 08/27/2020 7:45 AM 08/30/2020 12:07 PM * Full Code Date Activated Date Inactivated Comments 05/31/2020 8:36 AM 05/31/2020 2:18 PM Care Teams Vp Communications Relationship Specialty Start Date End Date Ananth Mullen MD PCP - General Internal Medicine 04/21/20
--- OUTSIDE RECORDS SUMMARY | 2024-11-17 13:16 | XMS_ITS | Encounter Summary ---
Author Organization [facility] Healthcare Address [address] [place] [address] Care Team Providers Care Plateman Name Role Phone Unavailable Primary Care Provider Unavailabl e Reason for Visit * Diagnostic Imaging (Routine) - Closed Specialty Diagnoses / Procedures Referred By Ambika t Referred To Contact Procedures Breast Imaging Screening Outside Reference Ofelia Naranjo NP [address] [facility] [phone] [place] [address] Phone: tel: fax: Referral ID Status Reason Start Date Expiration Date Visits Re quested Visits Authorized [id number] Closed 09/21/2022 10/21/2023 1 1 Encounter Details Date Type Department Care Team ([facility] st Contact Info) Description 02/24/2015 Hospital Encounter [facility]iology [facility]) [facility] [place], [place] [id number] Social History Tobacco Use Types Packs/Day Years [...] file 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 There will be no report generated by a [facility] Radiologist. Narrative RAD_MAMMO_BJ - 09/21/2022 3:33 PM CDT EXAMINATION: Images For Reference Purposes Only us Ofelia Naranjo WINCH TRUCK OPERATOR IMG MAMMO PROCEDURES Final Result RAD_M[facility]MO[facility] documented in this encounter Visit Diagnoses Not on filedocumented in this encounter
--- OUTSIDE RECORDS SUMMARY | 2024-11-17 13:16 | XMS_ITS | Clinical Summary ---
Author Organization [facility] [address] [facility] [place] [address] Care Team Providers Care Cutter Inspector Name Role Phone Ananth Mullen MD Primary Care Provider [phone] Allergies No known active allergies Medications venlafaxine [...] (07/22/2020): Added automatically from request for surgery [id number] Arthritis 04/27/2020 History of Hood-en-Y gastric bypass 04/27/2020 Heartburn 04/23/2020 Overview (04/23/2020): Added automatically from request for surgery [id number] Weight gain following gastric bypass surgery Overview (04/23/2020): Added automatically from request for surgery [id number] Preoperative examination 04/23/2020 Overview (04/23/2020): Added automatically from request for surgery [id number] Hx of hysterectomy 04/27/2004 Encounters Date Type Department Care Team Description 09/18/2024 9:15 AM CDT Office Visit [facility] Ophthalmology [address] [facility] [place] [id number] Raphael Hernández MD Chalazion of left upper eyelid (Primary Dx) 09/03/2024 Telephone [facility] Ophthalmology [address] [place] [address] Raphael Hernández MD from Last 3 Months [...] on file Legal Sex Female 4:27 PM [employer] Gender Identity Not on file Sexual Orientation [...] 10/03/2022 7:40 AM CDT Plan of Treatment Health Maintenance Due Date Last Done Comments Colon Cancer Screening-Colonoscopy 1962 Depression Screening 1962 Hepatitis C Screening 1962 Hepatitis B Screening 1980 Regular Well Visit/Exam 18-64 1980 Zoster Vaccine (2 of 2) 04/07/2019 02/10/2019 Breast Cancer Screening-Mammogram 10/31/2024 11/01/2023 Influenza Vaccine (Season Ended) 2025 03/27/2018, 03/15/2017, 03/12/2017, Additional history exists DTaP/Tdap/Td Vaccine (2 - Td or Tdap) [...] Most Recently Relevant to Health Maintenance Insurance [facility] [employer] H[facility]/PPO Address: [facility] [address] [place] [address] [employer] [place] [facility] [employer]/PPO Address: [address] [address] [place] [address] Advance Directives For more information, please contact: [phone] * Full Code (Latest Code Status on File) Date Activated Date Inactivated Comments 08/27/2020 7:45 AM 08/30/2020 12:07 PM * Full Code Date Activated Date Inactivated Comments 05/31/2020 8:36 AM 05/31/2020 2:18 PM Care Teams Cutter Inspector Relationship Specialty Start Date End Date Ananth Mullen MD PCP - General Internal Medicine 04/21/20
== END 2024-11-17 12:23 | disposition home or self-care (01) ==
LOC: CHSIMG 12:24
PROVIDERS: PCP Internal Medicine; Visit Provider Internal Medicine
DX: Z12.31 Encounter for screening mammogram for malignant neoplasm of breast (principal)
CPT/HCPCS: 77063; 77067